=== PATIENT | female | born 1950 | race Caucasian/White ===

== ENCOUNTER 2021-08-27 04:29 | Inpatient (IN) | payer MEDICARE ==
--- NOTE | 2021-08-27 04:49 | ED ---
Chest Pain HPI - General Stated Complaint: Palpitations Time Seen by Provider: 08/27/21 04:36 Source: RN notes reviewed, old records reviewed Limitations: no limitations - History of Present Illness Initial Comments: This is a 71-year-old female to the emergency department today today. She presents today for evaluation of shortness of breath severe. Patient has history of SVT. Coming in with weakness and chest pain. No recent travel history sick contacts. No other complaints. Patient does feel weak and significantly short of breath especially with exertion or movement. MD Complaint: chest pain, other (Shortness of breath) -: hour(s) Onset: during exertion Pain Location: substernal, left chest Pain Radiation: LUE Severity: moderate Severity scale (1-10): 7 Quality: tightness, heaviness Consistency: constant Improves With: nothing Worsens With: exertion Anginal Symptoms: dyspnea, sense of impending doom Other Symptoms: palpitations Treatments Prior to Arrival: none - Related Data Allergies Allergy/AdvReac Type Severity Reaction Status Date / Time Penicillins Allergy Anaphylaxis Verified 08/27/21 07:07 Review of Systems ROS Statement: Those systems with pertinent positive or pertinent negative responses have been documented in the HPI. ROS Other: All systems not noted in ROS Statement are negative. EKG Findings - EKG Comments: EKG Findings:: EKG shows A. fib with RVR 160 QRS 87 QTC 362 General Exam General appearance: alert, in no apparent distress, anxious Head exam: Present: atraumatic, normocephalic, normal inspection Eye exam: Present: normal appearance, PERRL, EOMI. Absent: scleral icterus, conjunctival injection, periorbital swelling ENT exam: Present: normal exam, mucous membranes moist Neck exam: Present: normal inspection. Absent: tenderness, meningismus, lymphadenopathy Respiratory exam: Present: normal lung sounds bilaterally. Absent: respiratory distress, wheezes, rales, rhonchi, stridor Cardiovascular Exam: Present: tachycardia, irregular rhythm, normal heart sounds. Absent: systolic murmur, diastolic murmur, rubs, gallop, clicks GI/Abdominal exam: Present: soft, normal bowel sounds. Absent: distended, tenderness, guarding, rebound, rigid Extremities exam: Present: normal inspection, full ROM, normal capillary refill. Absent: tenderness, pedal edema, joint swelling, calf tenderness Back exam: Present: normal inspection Neurological exam: Present: alert, oriented X3, CN II-XII intact Psychiatric exam: Present: normal affect, normal mood Skin exam: Present: warm, dry, intact, normal color. Absent: rash Course Vital Signs 08/27/21 08/27/21 04:49 06:52 Temperature 98.1 F Pulse Rate 152 H 98 Respiratory 18 18 Rate Blood Pressure 163/108 180/76 O2 Sat by Pulse 97 99 Oximetry - Reevaluation(s) Reevaluation #1: 08/27/21 07:33 Medical record is reviewed Reevaluation #2: 08/27/21 07:33 patient has significant improvent with rate control Reevaluation #3: 08/27/21 07:33 patient informed of results and questions answered - Consultations Consultation #1: spoke with EM who agrees to admit the patient Chest Pain MDM - MDM 71 female to the ED complains severe shortness of breath or chest pain. Patient found to be in significant A. fib with RVR SVT. History of SVT no prior history of nature fibrillation. Patient will be admitted for cardiology evaluation Critical Care Time Critical Care Time: Yes Total Critical Care Time: 31 Disposition Clinical Impression: SVT (supraventricular tachycardia), Atrial fibrillation with RVR, New onset atrial fibrillation, Chest pain Disposition: ADMITTED IP TO THIS HOSP Condition: Fair Is patient prescribed a controlled substance at d/c from ED?: No Referrals: Gaston Boss MD [Primary Care Provider] - 1-2 days
[2021-08-27] MEDS ORDERED: SODIUM CHLORIDE 0.9% 1,000 ML IV STA ×2 (04:50→06:35)
[2021-08-27 05:00] LABS: Basophils # (A) 0.1 k/uL (0-0.2); Basophils % (A) 1 %; Eosinophils # (A) 0.1 k/uL (0-0.7); Eosinophils % (A) 1 %; HCT 39.5 % (34.0-46.0); Hypochromasia Slight; Lymphocytes # (A) 1.7 k/uL (1.0-4.8); Lymphocytes % (A) 14 %; MCH 29.9 pg (25.0-35.0); MCHC 30.5 g/dL (31.0-37.0); MCV 98.1 fL (80.0-100.0); Mean Platelet Volume 9.5; Monocytes # (A) 0.5 k/uL (0-1.0); Monocytes % (A) 4 %; Neutrophils % (A) 81 %; Platelet Count 274 k/uL (150-450); RBC 4.03 m/uL (3.80-5.40); WBC 12.4 k/uL (3.8-10.6)
[2021-08-27 05:10] LABS: Albumin 4.1 g/dL (3.5-5.0); Calcium 8.9 mg/dL (8.4-10.2); INR 0.9 (<1.2); Partial Thromboplastin Time 22.2 sec (22.0-30.0); Phosphorus 4.9 mg/dL (2.5-4.5); Potassium 4.8 mmol/L (3.5-5.1); Prothrombin Time 10.4 sec (9.0-12.0); Total Bilirubin 0.5 mg/dL (0.2-1.3); Total Protein 7.5 g/dL (6.3-8.2)
[2021-08-27] MEDS ORDERED: DILTIAZEM 5 MG/ML 5 ML VIAL IVP STA (06:35)
[2021-08-27] MEDS ORDERED: INSULIN REGULAR 100 UNIT/ML VIAL (IV) IV ONE (06:35)
[2021-08-27] MEDS ORDERED: SODIUM CHLORIDE 0.9% 500 ML 500 ML IV STA (06:35)
[2021-08-27] MEDS ORDERED: DILTIAZEM DRIP BOLUS FROM BAG 1 MG SOLN IV ONE ×2 (06:35→06:43)
[2021-08-27] MEDS: DILTIAZEM 125 MG in SODIUM CHLORIDE 0.9% 100 ML IV SCH (06:59)
--- NOTE | 2021-08-27 07:07 | XR ---
EXAMINATION TYPE: XR chest 1V portable DATE OF EXAM: 08/27/2021 COMPARISON: NONE HISTORY: Chest pain. TECHNIQUE: Single AP portable frontal upright view of the chest is obtained. FINDINGS: Exam suboptimal due to body habitus and portable technique. Lungs are grossly clear. The cardiac silhouette size is upper limits of normal. The osseous structures are intact. IMPRESSION: Suboptimal study without acute pulmonary process identified.
[2021-08-27 07:10] LABS: Appearance,Urine Clear (Clear); Bacteria,Urine Rare /hpf; Bilirubin,Urine Negative (Negative); Blood,Urine Trace (Negative); Color,Urine Light Yellow; Glucose,Urine (UA) 4+ (Negative); Hyaline Casts,Urine 3 /lpf (0-2); Ketones,Urine Negative (Negative); Leukocyte Esterase,Urine Negative (Negative); Mucus,Urine Rare /hpf; Nitrite,Urine Negative (Negative); PH, Urine 6.5 (5.0-8.0); Protein,Urine 3+ (Negative); RBC,Urine 1 /hpf (0-5); Specific Gravity,Urine 1.019 (1.001-1.035); Squamous Epithelial Cell,Urine 1 /hpf (0-4); Urobilinogen,Urine <2.0 mg/dL (<2.0); WBC,Urine 5 /hpf (0-5)
[2021-08-27] MEDS ORDERED: LORazepam 2 MG/ML INJ IV PRN (07:29)
[2021-08-27] MEDS ORDERED: MORPHINE SULFATE 4 MG/ML SYRINGE IV PRN (07:29)
[2021-08-27] MEDS ORDERED: NALOXONE 0.4 MG/ML 1 ML VIAL IV PRN (07:29)
[2021-08-27] MEDS ORDERED: ACETAMINOPHEN TAB 325 MG TAB PO PRN (07:29)
[2021-08-27] MEDS ORDERED: ONDANSETRON 4 MG/2 ML VIAL IVP PRN (07:29)
[2021-08-27] MEDS ORDERED: HEPARIN SODIUM 1,000 UN/ML (10ML VL) IV ONE (07:36)
[2021-08-27 09:44] LABS: Glucose,Whole Blood 338 mg/dL (75-99)
[2021-08-27] MEDS: INSULIN ASPART (NovoLOG) 100 UNIT/ML VIAL SQ SCH ×3 (09:45→20:54)
[2021-08-27] MEDS: SODIUM CHLORIDE 0.9% 1,000 ML IV SCH ×3 (09:46→22:33)
[2021-08-27] MEDS: HEPARIN SOD,PORK IN 0.45% NACL 25,000 UNIT in 0.45% NACL 1 250ML.BAG IV SCH (09:55)
[2021-08-27 17:07] LABS: Glucose,Whole Blood 166 mg/dL (75-99)
[2021-08-27] MEDS ORDERED: ASPIRIN 81 MG PO PRN (18:09)
--- NOTE | 2021-08-27 18:55 | P.HPIM ---
History of Present Illness H&P Date: 08/27/21 Chief Complaint: Palpitations 71-year-old female with history of hypertension, diabetes mellitus, COPD/asthma presents to the emergency department for evaluation of shortness of breath severe. Patient has history of SVT. Coming in with weakness and chest pain. No recent travel history sick contacts. No other complaints. Patient does feel weak and significantly short of breath especially with exertion or movement. Workup completed in ED including an EKG reveals atrial fibrillation with RVR; patient is placed on IV Cardizem and heparin and is admitted for further e valuation Review of Systems REVIEW OF SYSTEMS: CONSTITUTIONAL: No fever, no malaise, no fatigue. HEENT: No recent visual problems or hearing problems. Denied any sore throat. CARDIOVASCULAR: No chest pain, orthopnea, PND, no palpitations, no syncope. PULMONARY: No shortness of breath, no cough, no hemoptysis. GASTROINTESTINAL: No diarrhea, no nausea, no vomiting, no abdominal pain. NEUROLOGICAL: No headaches, no weakness, no numbness. HEMATOLOGICAL: Denies any bleeding or petechiae. GENITOURINARY: Denies any burning micturition, frequency, or urgency. MUSCULOSKELETAL/RHEUMATOLOGICAL: Denies any joint pain, swelling, or any muscle pain. ENDOCRINE: Denies any polyuria or polydipsia. The rest of the 14-point review of systems is negative. Medications and Allergies Home Medications Medication Instructions Recorded Confirmed Type Albuterol Nebulized [Ventolin 2.5 mg INHALATION RT-QID 08/27/21 08/27/21 History Nebulized] Aspirin EC [Ecotrin Low Dose] 324 mg PO DAILY PRN 08/27/21 08/27/21 History Azithromycin [Zithromax Z-pack (6 See Taper PO DAILY 08/27/21 08/27/21 History tabs)] Furosemide [Lasix] 20 mg PO DAILY 08/27/21 08/27/21 History Insulin NPH Hum/Reg Insulin Hm 35 unit SQ DAILY 08/27/21 08/27/21 History [NovoLIN 70-30 100 UNIT/ML VIAL] Potassium Chloride ER [K-Dur 10] 10 meq PO DAILY 08/27/21 08/27/21 History Verapamil HCl [Verapamil ER] 180 mg PO BID 08/27/21 08/27/21 History metFORMIN HCL 500 mg PO W/BRKFST 08/27/21 08/27/21 History metFORMIN HCL [Glucophage] 1,000 mg PO W/SUPPER 08/27/21 08/27/21 History methylPREDNISolone [Medrol Dose See Taper PO DAILY 08/27/21 08/27/21 History Pack] traMADol HCL 50 mg PO BID 08/27/21 08/27/21 History Allergies Allergy/AdvReac Type Severity Reaction Status Date / Time Penicillins Allergy Rash/Hives Verified 08/27/21 11:37 ALL OVER Physical Exam Vitals: Vital Signs Temp Pulse Resp BP Pulse Ox 08/27/21 06:52 98 18 180/76 99 08/27/21 04:49 98.1 F 152 H 18 163/108 97 Intake and Output 08/26/21 08/27/21 08/27/21 22:59 06:59 14:59 Other: Weight 125.645 kg - Constitutional General appearance: Present: average body habitus, cooperative, no acute distress - EENT Eyes: Present: anicteric sclerae, EOMI, PERRLA, normal appearance ENT: Present: hearing grossly normal, normal oropharynx Ears: bilateral: normal - Neck Neck: Present: normal ROM. Absent: lymphadenopathy, rigidity, thyromegaly Carotids: negative: bruit present Thyroid: bilateral: normal size, negative: enlarged, nodule - Respiratory Respiratory: bilateral: CTA, negative: rales, rhonchi, wheezing - Cardiovascular Rhythm: regular Heart sounds: normal: S1, S2 Abnormal Heart Sounds: Absent: systolic murmur, diastolic murmur - Gastrointestinal General gastrointestinal: Present: normal bowel sounds, soft. Absent: distended, organomegaly, tenderness - Genitourinary Genitourinary Comment(s): deferred - Integumentary Integumentary: Present: normal turgor. Absent: jaundiced, rash, ulcer - Neurologic Neurologic: Present: CNII-XII intact. Absent: focal deficits - Musculoskeletal Musculoskeletal: Present: gait normal, strength equal bilaterally - Psychiatric Psychiatric: Present: A&O x's 3, appropriate affect, intact judgment & insight Results CBC & Chem 7: 08/27/21 04:45 08/27/21 04:45 Labs: Abnormal Lab Results - Last 24 Hours (Table) 08/27/21 08/27/21 08/27/21 Range/Units 04:45 04:45 05:08 WBC 12.4 H (3.8-10.6) k/uL MCHC 30.5 L (31.0-37.0) g/dL Neutrophils # 10.0 H (1.3-7.7) k/uL Sodium 135 L (137-145) mmol/L BUN 32 H (7-17) mg/dL Creatinine 1.30 H (0.52-1.04) mg/dL Glucose 522 H* (74-99) mg/dL POC Glucose (mg/dL) (75-99) mg/dL Plasma Lactic Acid Tunde 2.1 H* (0.7-2.0) mmol/L Phosphorus 4.9 H (2.5-4.5) mg/dL Urine Protein (Negative) Urine Glucose (UA) (Negative) Urine Blood (Negative) Urine Bacteria (None) /hpf Hyaline Casts (0-2) /lpf Urine Mucus (None) /hpf 08/27/21 08/27/21 Range/Units 06:45 09:42 WBC (3.8-10.6) k/uL MCHC (31.0-37.0) g/dL Neutrophils # (1.3-7.7) k/uL Sodium (137-145) mmol/L BUN (7-17) mg/dL Creatinine (0.52-1.04) mg/dL Glucose (74-99) mg/dL POC Glucose (mg/dL) 338 H (75-99) mg/dL Plasma Lactic Acid Tunde (0.7-2.0) mmol/L Phosphorus (2.5-4.5) mg/dL Urine Protein 3+ H (Negative) Urine Glucose (UA) 4+ H (Negative) Urine Blood Trace H (Negative) Urine Bacteria Rare H (None) /hpf Hyaline Casts 3 H (0-2) /lpf Urine Mucus Rare H (None) /hpf Assessment and Plan Assessment: 1. New onset atrial fibrillation with RVR - Patient has been placed on IV heparin infusion and Cardizem to titrate keeping heart rate less than 110 - Patient takes verapamil at home which has been placed on hold - We will monitor EKG and trend troponin; recommend 2-D echo - Cardiology is consulted for further recommendations 2. Chest pain; likely related to elevated heart rate; we will monitor EKG and trend troponin; further recommendations pending results 3. Hypertension; currently controlled on IV Cardizem infusion 4. Diabetes mellitus; we will continue with home dose of insulin 7030 along with metformin; monitor Accu-Cheks every before meals and at bedtime with insul in sliding scale 5. DVT prophylaxis; SCDs/heparin CODE STATUS; full code
[2021-08-27] MEDS: ALBUTEROL NEBULIZED 2.5 MG/3 ML INHALATION SCH (20:14)
[2021-08-27] MEDS: traMADol 50 MG TAB PO SCH (20:54)
[2021-08-27 20:58] LABS: Glucose,Whole Blood 254 mg/dL (75-99)
[2021-08-27] MEDS ORDERED: VERAPAMIL HCL 180 MG PO SCH (21:00)
[2021-08-28] MEDS: DILTIAZEM 125 MG in SODIUM CHLORIDE 0.9% 100 ML IV SCH (00:02)
[2021-08-28] MEDS: HEPARIN SOD,PORK IN 0.45% NACL 25,000 UNIT in 0.45% NACL 1 250ML.BAG IV SCH (02:29)
[2021-08-28 03:46] LABS: Basophils % (A) 0 %; Eosinophils # (A) 0.1 k/uL (0-0.7); Eosinophils % (A) 2 %; HCT 35.5 % (34.0-46.0); HGB 11.1 gm/dL (11.4-16.0); Hypochromasia Slight; Lymphocytes # (A) 2.3 k/uL (1.0-4.8); Lymphocytes % (A) 28 %; MCH 30.2 pg (25.0-35.0); MCHC 31.3 g/dL (31.0-37.0); MCV 96.6 fL (80.0-100.0); Mean Platelet Volume 9.2; Monocytes # (A) 0.4 k/uL (0-1.0); Monocytes % (A) 5 %; Neutrophils # (A) 5.2 k/uL (1.3-7.7); Neutrophils % (A) 64 %; Platelet Count 228 k/uL (150-450); RBC 3.68 m/uL (3.80-5.40); RDW 14.6 % (11.5-15.5); WBC 8.2 k/uL (3.8-10.6)
[2021-08-28 04:05] LABS: Albumin 3.3 g/dL (3.5-5.0); Calcium 8.4 mg/dL (8.4-10.2); Magnesium 1.8 mg/dL (1.6-2.3); Phosphorus 4.3 mg/dL (2.5-4.5); Potassium 3.9 mmol/L (3.5-5.1); Total Bilirubin 0.5 mg/dL (0.2-1.3); Total Protein 6.1 g/dL (6.3-8.2)
[2021-08-28] MEDS: INSULIN ASPART (NovoLOG) 100 UNIT/ML VIAL SQ SCH ×2 (06:21→11:48)
[2021-08-28] MEDS: SODIUM CHLORIDE 0.9% 1,000 ML IV SCH ×2 (06:22→07:55)
[2021-08-28 06:31] LABS: Glucose,Whole Blood 196 mg/dL (75-99)
[2021-08-28] MEDS ORDERED: INSULN ASP PRT/INSULIN ASPART 100 UNIT/ML 10 ML VIAL SQ SCH (07:30)
[2021-08-28] MEDS ORDERED: metFORMIN 500 MG TAB PO SCH ×2 (07:30→17:30)
[2021-08-28 08:51] VITALS: RESP 18; TEMP 97.9
[2021-08-28] MEDS: traMADol 50 MG TAB PO SCH (08:53)
[2021-08-28] MEDS ORDERED: FUROSEMIDE 20 MG TAB PO SCH (09:00)
[2021-08-28] MEDS ORDERED: METOPROLOL TARTRATE 50 MG TAB PO SCH (09:00)
[2021-08-28] MEDS ORDERED: METOPROLOL TARTRATE 25 MG TAB PO SCH (09:00)
[2021-08-28] MEDS ORDERED: POTASSIUM CHLORIDE ER 10 MEQ TAB.ER.PRT PO SCH (09:00)
[2021-08-28] MEDS ORDERED: APIXABAN 5 MG TAB PO SCH (09:00)
--- NOTE | 2021-08-28 09:03 | P.CRDCN ---
History of Present Illness History of present illness: HISTORY OF PRESENT ILLNESS: This is a 71 year old female with a past medical history significant for hypertension, diabetes, SVT, and chronic lower extremity edema. 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 We have been asked to see the patient in consultation for afib with RVR. Patient examined at the bedside. Patient states she woke up two nights ago and was very short of breath. She states she took her pulse ox at home and noticed her heart rate was low (in the 40s). She denied any chest pain or pressure. She denied any dizziness or lightheadedness. She states that she called EMS and was brought to the hospital for further evaluation. EKG completed in the emergency room revealed atrial fibrillation with RVR. The patient denies a history of atrial flutter ablation. The patient was started on IV Cardizem and IV heparin. She subsequently converted to sinus mechanism. The patient is maintaining satisfactory this morning with a heart rate in the 90s. * EKG reveals A. fib with RVR * Chest xray suboptimal study without acute pulmonary process identified * Laboratory data: WBC 8.2. Hemoglobin 11.1. Platelet count 228. Sodium 135. Potassium 3.9. BUN 30. Creatinine 1.22. magnesium 1.8. * Current home cardiac medications include verapamil 180 mg twice a day, Lasix 20 mg daily, aspirin 324 mg daily PRN REVIEW OF SYSTEMS: At the time of my exam: CONSTITUTIONAL: Denies fever or chills. HEENT: Denies blurred vision, vision changes, or eye pain. Denies hemoptysis CARDIOVASCULAR: Denies chest pain. Denies orthopnea. Denies PND. Denies palpitations RESPIRATORY: Denies shortness of breath. GASTROINTESTINAL: Denies abdominal pain. Denies nausea or vomiting. HEMATOLOGIC: Denies bleeding disorders. GENITOURINARY: Denies any blood in urine. SKIN: Denies pruitis. Denies rash. PHYSICAL EXAM: VITAL SIGNS: Reviewed. GENERAL: Well-developed in no acute distress. HEENT: Head is normocephalic. Pupils are equal, round. Sclerae anicteric. Mucous membranes of the mouth are moist. Neck supple. No JVD or thyromegaly LUNGS: Respirations even and unlabored. Lungs essentially clear to auscultation bilaterally. HEART: Regular rate and rhythm. S1 and S2 heard. ABDOMEN: Soft. Nondistended. Nontender. EXTREMITIES: Normal range of motion. No clubbing or cyanosis. Peripheral pulses intact. 1-2+ bilateral lower extremity edema NEUROLOGIC: Awake and alert. Oriented x 3. ASSESSMENT: Shortness of breath New onset atrial fibrillation with RVR, paroxysmal, currently maintaining sinus mechanism Hypertension History of SVT Diabetes Chronic lower extremity edema PLAN: Discontinue IV Cardizem Begin metoprolol 50mg BID Discontinue IV heparin. Begin Eliquis 5mg BID. Obtain 2D echo to assess cardiac structure and function Anticipate discharge home this afternoon if patient remains stable Nurse practitioner note has been reviewed by physician. Signing provider agrees with the documented findings, assessment, and plan of care. Past Medical History Past Medical History: Diabetes Mellitus Additional Past Medical History / Comment(s): "fast heart rate", sciatic nerve pain, History of Any Multi-Drug Resistant Organisms: None Reported Smoking Status: Former smoker Medications and Allergies Home Medications Medication Instructions Recorded Confirmed Type Albuterol Nebulized [Ventolin 2.5 mg INHALATION RT-QID 08/27/21 08/27/21 History Nebulized] Aspirin EC [Ecotrin Low Dose] 324 mg PO DAILY PRN 08/27/21 08/27/21 History Azithromycin [Zithromax Z-pack (6 See Taper PO DAILY 08/27/21 08/27/21 History tabs)] Furosemide [Lasix] 20 mg PO DAILY 08/27/21 08/27/21 History Insulin NPH Hum/Reg Insulin Hm 35 unit SQ DAILY 08/27/21 08/27/21 History [NovoLIN 70-30 100 UNIT/ML VIAL] Potassium Chloride ER [K-Dur 10] 10 meq PO DAILY 08/27/21 08/27/21 History Verapamil HCl [Verapamil ER] 180 mg PO BID 08/27/21 08/27/21 History metFORMIN HCL 500 mg PO W/BRKFST 08/27/21 08/27/21 History metFORMIN HCL [Glucophage] 1,000 mg PO W/SUPPER 08/27/21 08/27/21 History methylPREDNISolone [Medrol Dose See Taper PO DAILY 08/27/21 08/27/21 History Pack] traMADol HCL 50 mg PO BID 08/27/21 08/27/21 History Allergies Allergy/AdvReac Type Severity Reaction Status Date / Time Penicillins Allergy Rash/Hives Verified 08/27/21 11:37 ALL OVER Physical Exam Vitals: Vital Signs Temp Pulse Pulse Resp BP BP Pulse Ox 08/28/21 07:42 17 08/28/21 02:40 97.3 F L 86 17 165/86 96 08/27/21 23:55 87 17 08/27/21 23:08 98.1 F 91 17 166/76 96 08/27/21 20:26 70 08/27/21 20:16 68 08/27/21 19:43 97.9 F 87 18 176/68 98 08/27/21 15:00 84 18 196/87 96 08/27/21 12:00 88 18 168/70 98 Intake and Output 08/27/21 08/28/21 08/28/21 22:59 06:59 14:59 Intake Total 165.500 112.755 Balance 165.500 112.755 Intake: Intake, IV Titration 165.500 112.755 Amount Diltiazem 125 mg In 55.333 0 Sodium Chloride 0.9% 100 ml @ 5 MG/HR 5 mls/hr IV .Q24H [facility] Rx#:[id number] Heparin Sod,Pork in 0.45% 110.167 112.755 NaCl 25,000 unit In 0.45 % NaCl 1 250ml.bag @ 7. 959 UNITS/KG/HR 10 mls/hr IV .Q24H [facility] Rx#: [id number] Other: # Voids 1 Results 08/28/21 02:58 08/28/21 02:58 Cardiac Enzymes 08/27/21 08/27/21 08/28/21 Range/Units 09:19 12:53 02:58 AST 31 (14-36) U/L Troponin I 0.017 0.028 (0.000-0.034) ng/mL Coagulation 08/27/21 08/28/21 Range/Units 18:44 02:58 APTT 28.1 36.0 H (22.0-30.0) sec CBC 08/28/21 Range/Units 02:58 WBC 8.2 (3.8-10.6) k/uL RBC 3.68 L (3.80-5.40) m/uL Hgb 11.1 L (11.4-16.0) gm/dL Hct 35.5 (34.0-46.0) % Plt Count 228 (150-450) k/uL Comprehensive Metabolic Panel 08/28/21 Range/Units 02:58 Sodium 135 L (137-145) mmol/L Potassium 3.9 (3.5-5.1) mmol/L Chloride 110 H (98-107) mmol/L Carbon Dioxide 22 (22-30) mmol/L BUN 30 H (7-17) mg/dL Creatinine 1.22 H (0.52-1.04) mg/dL Glucose 173 H (74-99) mg/dL Calcium 8.4 (8.4-10.2) mg/dL AST 31 (14-36) U/L ALT 21 (4-34) U/L Alkaline Phosphatase 66 (38-126) U/L Total Protein 6.1 L (6.3-8.2) g/dL Albumin 3.3 L (3.5-5.0) g/dL Current Medications Generic Name Dose Route Start Last Admin Trade Name Freq PRN Reason Stop Dose Admin Acetaminophen 650 mg 08/27/21 07:29 Acetaminophen Tab 325 Mg Tab PO Q6HR PRN Mild Pain or Fever > 100.5 Albuterol Sulfate 2.5 mg 08/27/21 20:00 08/27/21 20:14 Albuterol Nebulized 2.5 Mg/3 Ml INHALATION 2.5 mg RT-QID [facility] Administration Aspirin 324 mg 08/27/21 18:09 Aspirin 81 Mg PO DAILY PRN Pain Furosemide 20 mg 08/28/21 09:00 Furosemide 20 Mg Tab PO DAILY [facility] Diltiazem HCl 125 mg/ Sodium 125 mls @ 5 mls/hr 08/27/21 06:45 08/28/21 00:02 Chloride IV 5 mg/hr .Q24H [facility] 5 mls/hr Administration 5 MG/HR Sodium Chloride 1,000 mls @ 130 mls/hr 08/27/21 07:30 08/28/21 07:55 Saline 0.9% IV Not Given .Q7H42M [facility] Heparin Sodium/Sodium Chloride 250 mls @ 10 mls/hr 08/27/21 07:45 08/28/21 05:10 25,000 unit/ Sodium Chloride IV 12.9 units/kg/hr .Q24H [facility] 16.208 mls/hr Titration Protocol 7.959 UNITS/KG/HR Insulin Aspart 35 unit 08/28/21 07:30 08/28/21 06:43 Insuln Asp Prt/Insulin Aspart 100 Unit/Ml 10 Ml Vial SQ 35 unit AC-BRKFST [facility] Administration Insulin Aspart 0 unit 08/27/21 21:00 08/28/21 06:21 Insulin Aspart (Novolog) 100 Unit/Ml Vial SQ 3 unit ACHS [facility] Administration Protocol Lorazepam 0.5 mg 08/27/21 07:29 Lorazepam 2 Mg/Ml Inj IV Q6HR PRN Anxiety Metformin HCl 1,000 mg 08/28/21 17:30 Metformin 500 Mg Tab PO W/SUPPER [facility] Metformin HCl 500 mg 08/28/21 07:30 08/28/21 06:21 Metformin 500 Mg Tab PO 500 mg W/BRKFST [facility] Administration Morphine Sulfate 4 mg 08/27/21 07:29 Morphine Sulfate 4 Mg/Ml Syringe IV Q4HR PRN Severe Pain Naloxone HCl 0.2 mg 08/27/21 07:29 Naloxone 0.4 Mg/Ml 1 Ml Vial IV Q2M PRN Opioid Reversal Non-Formulary Medication 180 mg 08/27/21 21:00 Verapamil Hcl [Verapamil Er] PO BID [facility] Ondansetron HCl 4 mg 08/27/21 07:29 Ondansetron 4 Mg/2 Ml Vial IVP Q8HR PRN Nausea And Vomiting Potassium Chloride 10 meq 08/28/21 09:00 Potassium Chloride Er 10 Meq Tab.Er.Prt PO DAILY [facility] Tramadol HCl 50 mg 08/27/21 21:00 08/27/21 20:54 Tramadol 50 Mg Tab PO 50 mg BID [facility] Administration Intake and Output 08/27/21 08/28/21 08/28/21 22:59 06:59 14:59 Intake Total 165.500 112.755 Balance 165.500 112.755 Intake: Intake, IV Titration 165.500 112.755 Amount Diltiazem 125 mg In 55.333 0 Sodium Chloride 0.9% 100 ml @ 5 MG/HR 5 mls/hr IV .Q24H [facility] Rx#:[id number] Heparin Sod,Pork in 0.45% 110.167 112.755 NaCl 25,000 unit In 0.45 % NaCl 1 250ml.bag @ 7. 959 UNITS/KG/HR 10 mls/hr IV .Q24H [facility] Rx#: [id number] Other: # Voids 1 08/28/21 02:58 08/28/21 02:58
[2021-08-28] MEDS: ALBUTEROL NEBULIZED 2.5 MG/3 ML INHALATION SCH ×2 (09:06→12:02)
[2021-08-28 11:34] LABS: Glucose,Whole Blood 81 mg/dL (75-99)
[2021-08-28 11:46] VITALS: BP 172/101; PULSE 75
[2021-08-28 12:35] LABS: Glucose,Whole Blood 131 mg/dL (75-99)
[2021-08-28] MEDS ORDERED: MONTELUKAST 10 MG TAB PO SCH (21:00)
--- NOTE | 2021-08-29 13:00 | ECHOF ---
Referral Reason:LV function MEASUREMENTS -------- HEIGHT: 157.5 cm WEIGHT: 125.6 kg BP: 159/77 RVIDd: 2.8 cm (< 3.3) IVSd: 1.4 cm (0.6 - 1.1) LVIDd: 5.5 cm (3.9 - 5.3) LVPWd: 1.4 cm (0.6 - 1.1) IVSs: 2.0 cm LVIDs: 3.8 cm LVPWs: 1.8 cm LA Diam: 3.5 cm (2.7 - 3.8) Ao Diam: 2.9 cm (2.0 - 3.7) AV Cusp: 1.6 cm (1.5 - 2.6) MV EXCURSION: 17.961 mm (> 18.000) MV EF SLOPE: 38 mm/s (70 - 150) EPSS: 1.8 cm MV E Gennaro: 0.51 m/s MV DecT: 315 ms MV A Gennaro: 0.77 m/s MV E/A Ratio: 0.67 RAP: 5.00 mmHg RVSP: 34.66 mmHg FINDINGS -------- Sinus rhythm. This was a technically difficult study with suboptimal views. The left ventricular size is normal. There is moderate concentric left ventricular hypertrophy. O verall left ventricular systolic function is low-normal with, an EF between 50 - 55 %. The right ventricle is normal in size. The left atrium is normal in size. The right atrium is normal in size. 3 ml of Lumason was utilized for enhancement of images. The aortic valve was not well visualized. Mild mitral regurgitation is present. Mild tricuspid regurgitation present. There is mild pulmonary hypertension. The right ventricular systolic pressure, as measured by Doppler, is 34.66mmHg. The pulmonic valve was not well visualized. The aortic root size is normal. IVC Not well visulized. There is no pericardial effusion. CONCLUSIONS -------- 1. The left ventricular size is normal. 2. There is moderate concentric left ventricular hypertrophy. 3. Overall left ventricular systolic function is low-normal with, an EF between 50 - 55 %. 4. 3 ml of Lumason was utilized for enhancement of images. 5. Mild mitral regurgitation is present. 6. Mild tricuspid regurgitation present. 7. There is mild pulmonary hypertension. 8. The right ventricular systolic pressure, as measured by Doppler, is 34.66mmHg. 9. There is no pericardial effusion. BUSINESS OPERATIONS ANALYST: Hanna Cadena RDCS
--- NOTE | 2021-08-29 15:56 | P.DS ---
Providers Date of admission: 08/27/21 07:29 Expected date of discharge: 08/28/21 Attending physician: Gaston Boss MD Consults: 08/27/21 07:31 Consult Physician Routine Consulting Provider: Darren Kennedy Consult Reason/Comments: afibRVR Do you want consulting provider notified?: Yes Primary care physician: Gaston Boss MD Hospital Course: Final Diagnoses: New onset paroxysmal atrial fibrillation with RVR, status post Cardizem drip, currently sinus rhythm in a patient with history of SVT Chest pain, suspect related to the above, cardiology following Sciatica nerve pain, chronic Diabetes mellitus II, hemoglobin A1c 8.7, further education outpatient in clinic Chronic renal failure, stage III Hypertension Chronic bronchitis Prior nicotine dependence Gait dysfunction, chronic left leg neuropathy X months, possibly diabetic neuropathy ,further workup outpatient in clinic Morbid obesity, BMI 54.1 Hospital course: 71-year-old female with history of hypertension, diabetes mellitus, COPD/asthma presents to the emergency department for evaluation of shortness of breath severe. Patient has history of SVT. Coming in with weakness and chest pain. No recent travel history sick contacts. No other complaints. Patient does feel weak and significantly short of breath especially with exertion or movement. Workup completed in ED including an EKG reveals atrial fibrillation with RVR; patient is placed on IV Cardizem and heparin and is admitted for further evaluation. Evaluated by cardiology, converted from IV heparin to eliquis.. Echocardiogram reporting low normal LV function, EF 50-55%, mild pulmonary hypertension, mild mitral and tricuspid regurgitation. Patient declining PT/ OT/neurology workup at this time regarding chronic left leg weakness, neuropathy; requesting outpatient workup and is eager for discharge. Patient will be discharged home today in a stable condition with guarded prognosis pending final DC recommendations/antiarrhythmics per cardiology. Case management checking on Eliquis RX coverage. The impression and plan of care has been dictated as directed. : I performed a history and examination of this patient, discussed the same with the dictator. I agree with the dictator's note ,documented as a scribe. Any additional findings or plans will be noted. Patient Condition at Discharge: Stable Plan - Discharge Summary Discharge Rx Participant: No New Discharge Prescriptions: New Apixaban [Eliquis] 5 mg PO BID #60 tab Montelukast [Singulair] 10 mg PO HS #30 tab Continue traMADol HCL 50 mg PO BID Albuterol Nebulized [Ventolin Nebulized] 2.5 mg INHALATION RT-QID Potassium Chloride ER [K-Dur 10] 10 meq PO DAILY Insulin NPH Hum/Reg Insulin Hm [NovoLIN 70-30 100 UNIT/ML VIAL] 35 unit SQ DAILY metFORMIN HCL [Glucophage] 1,000 mg PO W/SUPPER metFORMIN HCL 500 mg PO W/BRKFST Furosemide [Lasix] 20 mg PO DAILY Aspirin EC [Ecotrin Low Dose] 324 mg PO DAILY PRN PRN Reason: Pain Verapamil HCl [Verapamil ER] 180 mg PO BID Discontinued methylPREDNISolone [Medrol Dose Pack] See Taper PO DAILY Azithromycin [Zithromax Z-pack (6 tabs)] See Taper PO DAILY Discharge Medication List Albuterol Nebulized [Ventolin Nebulized] 2.5 mg INHALATION RT-QID 08/27/21 [History] Aspirin EC [Ecotrin Low Dose] 324 mg PO DAILY PRN 08/27/21 [History] Furosemide [Lasix] 20 mg PO DAILY 08/27/21 [History] Insulin NPH Hum/Reg Insulin Hm [NovoLIN 70-30 100 UNIT/ML VIAL] 35 unit SQ DAILY 08/27/21 [History] Potassium Chloride ER [K-Dur 10] 10 meq PO DAILY 08/27/21 [History] Verapamil HCl [Verapamil ER] 180 mg PO BID 08/27/21 [History] metFORMIN HCL 500 mg PO W/BRKFST 08/27/21 [History] metFORMIN HCL [Glucophage] 1,000 mg PO W/SUPPER 08/27/21 [History] traMADol HCL 50 mg PO BID 08/27/21 [History] Apixaban [Eliquis] 5 mg PO BID #60 tab 08/28/21 [Rx] Montelukast [Singulair] 10 mg PO HS #30 tab 08/28/21 [Rx] Follow up Appointment(s)/Referral(s): Darren Kennedy MD [STAFF PHYSICIAN] - 1 Week (The office will call you with an appointment) Gaston Boss MD [Primary Care Provider] - 08/29/21 2:00 pm Ambulatory/Diagnostic Orders: Complete Blood Count w/diff [LAB.AMB] Time Frame: 3 Days, Location: None Selected Patient Instructions/Handouts: A-fib (Atrial Fibrillation) (DC) Activity/Diet/Wound Care/Special Instructions: Hemoglobin A1c results to be faxed to PCP.... [facility] Discharge Disposition: HOME WITH HOME HEALTH SERVICES
== END 2021-08-28 14:58 | disposition home health service (06) | DRG 309 ==
LOC: EC 04:29 → 3SCARD 07:29
PROVIDERS: ADMIT Family Medicine; ATTEND Family Medicine
DX: I48.0 Paroxysmal atrial fibrillation (principal); Z68.43 Body mass index [BMI] 50.0-59.9, adult; E11.22 Type 2 diabetes mellitus with diabetic chronic kidney disease; E11.40 Type 2 diabetes mellitus with diabetic neuropathy, unspecified; Z79.4 Long term (current) use of insulin; Z79.84 Long term (current) use of oral hypoglycemic drugs; E66.01 Morbid (severe) obesity due to excess calories; I34.0 Nonrheumatic mitral (valve) insufficiency; R26.9 Unspecified abnormalities of gait and mobility; I12.9 Hypertensive chronic kidney disease with stage 1 through stage 4 chronic kidney disease, or unspecified chronic kidney disease; I27.20 Pulmonary hypertension, unspecified; I47.1 Supraventricular tachycardia; J44.9 Chronic obstructive pulmonary disease, unspecified; M54.30 Sciatica, unspecified side; N18.30 Chronic kidney disease, stage 3 unspecified; Z79.82 Long term (current) use of aspirin; Z79.899 Other long term (current) drug therapy; Z87.891 Personal history of nicotine dependence; Z88.0 Allergy status to penicillin
CPT/HCPCS: 36415; 71045; 80053; 81001; 83036; 83605; 83735; 83880; 84100; 84443; 84484; 85025; 85610; 85730; 93005; 93306; 94640; 94760; 96374; 96375; 99291

== ENCOUNTER → 2021-12-22 | Outpatient (CLI) | payer MEDICARE ==
[2021-12-22 18:30] LABS: HCT 37.9 % (37.2-46.3); HGB 11.4 g/dL (12.0-15.0); MCH 26.3 pg (27.0-32.0); MCHC 30.1 g/dL (32.0-37.0); MCV 87.5 fL (80.0-97.0); Mean Platelet Volume 11.7 fL (9.5-12.2); NRBC Per 100 WBC 0 /100 WBCS (0.0-0.0); Platelet Count 233 X 10*3/uL (140-440); RBC 4.33 X 10*6/uL (4.10-5.20); RDW 15.3 % (11.5-14.5); WBC 9.89 X 10*3/uL (4.50-10.00)
[2021-12-22 18:47] LABS: ALT <5 U/L (8-44); AST 14 U/L (13-35); African American GFR (CKD) 44.3 (60.0-200.0); Albumin 3.8 g/dL (3.8-4.9); Albumin/Globulin Ratio 1.12 (1.60-3.17); Alkaline Phosphatase 73 U/L (41-126); BUN/Creat Ratio 15.29 Ratio (12.00-20.00); Blood Urea Nitrogen 21.4 mg/dL (9.0-27.0); Calcium 8.9 mg/dL (8.7-10.3); Carbon Dioxide 20.1 mmol/L (20.0-27.5); Chloride 101 mmol/L (96-109); Chol/HDL Ratio 3.93 Ratio; Globulin 3.4 g/dL (1.6-3.3); Glucose 225 mg/dL (70-110); LDL Cholesterol,Calculated 127.5 mg/dL (0.0-131.0); Non-African American GFR(CKD) 38.2 (60.0-200.0); Potassium 5.4 mmol/L (3.5-5.5); Sodium 137 mmol/L (135-145); Total Protein 7.2 g/dL (6.2-8.2)
== END | disposition home or self-care (01) ==
LOC: LABWHC1 14:40
PROVIDERS: ATTEND Internal Medicine Interventional Cardiology
DX: I10 Essential (primary) hypertension (principal); E11.65 Type 2 diabetes mellitus with hyperglycemia; E11.69 Type 2 diabetes mellitus with other specified complication; E78.2 Mixed hyperlipidemia
CPT/HCPCS: 36415; 80053; 80061; 83036; 84443; 85027

== ENCOUNTER → 2022-01-10 | Outpatient (CLI) | payer MEDICARE ==
[2022-01-10 11:25] VITALS: BP 160/75; PULSE 87; RESP 18; TEMP 97.8
--- NOTE | 2022-01-10 13:35 | P.PAINPG ---
PQRS Measure Charge Sheet Comment: HISTORY OF PRESENT ILLNESS: 71 yr old female as a referral from Xena Pettit PA-C presents today w severe and chronic LBP secondary to spondylosis, disc bulges, neuroforaminal stenoses and facet arthropathy for evaluation. Pt states her pain level is currently at 2/10 in intensity, constant, localized in the lumbar spine with radiation of weakness down to the feet. Pain escalates as high as 10 out of 10 in intensity when standing for periods of 10 minutes or more. Patient has been using a wheelchair for ambulation since May 2021. Pain is relieved with medications per to his tramadol, Tylenol), topicals, heat, use of a wheelchair for ambulation, laying supine on her side, repositioning and rest PMH: HTN, aFib, Diabetes Mellitus PSH: Denies SH: Former tobacco user, Rare ETOH use, No illicit drug use. FH: Non contributory All: PCN Meds: See list (Eliquis per documentation from Xena Pettit November 2021) REVIEW OF ORGAN SYSTEMS: CONSTITUTIONAL: No fevers or chills. No recent weight loss. NEUROLOGICAL: + numbness and tingling along the distal ex tremities. No seizure disorders or headaches. MUSCULOSKELETAL: + pain PSYCHIATRIC: Denies current depression or suicidal thoughts. Physical Examinations : Constitutional : Cooperative , not in acute distress . Neurologic : Cranial nerve II to XII intact. No focal neurological deficits. Psychiatric : alert & oriented x 3. Matching mood & appropriate affect. Judgment & insight intact. Musculoskeletal : Cervical Spine Motor strength in the deltoid and biceps: Normal right side. Normal Left side Motor strength biceps and the wrist extensors: Normal right side . Normal left side Motor strength in the triceps muscle: Normal right side. Normal left side Deep tendon reflexes: Normal at the biceps. Normal at Brachioradialis. Normal at triceps Vertebral body tenderness to deep palpation over Cervical facet loading test: positive bilaterally Spurling test: positive bilaterally Neck distraction test: positive bilaterally Gabby sign: positive bilaterally Lumbar spine Motor strength lower extremities ,thigh and legs 5/5 Right side , 5/5 Left side Deep tendon reflexes : Normal Knee Jerk. Normal Ankle Jerk Vertebral body tenderness over L5 Lumbar facet Loading Test: positive Right / positive Left Range of motion of the lumbar spine Flexion 30 degrees, extension 10 degrees Straight Leg Raise test: Left/ Right positive at degree Fabiana test: positive right / positive left. Severe tenderness over the Sacroiliac joint on the Right / Left sides Gaenslen test: positive bilaterally Seated flexion test: positive bilaterally. Sacral spine : Severe tenderness over the Sacroiliac joint: right side / left side Range of motion: Flexion of the lumbar spine <60 degrees Range of motion: Extension of the lumbar spine <20 degrees Gaenslen's Test positive Colt's Test positive Fabiana test: positive right side / left side Thigh Thrust Test Sacral Thrust Test Imaging: MRI without contrast of the lumbar spine from 11/13/21 reviewed Assessment/ Plan : Lumbar DDD, Lumbar spondylosis, Lumbar facet arthropathy Recommendation of LESI L5-S1. may need a series of injections, up to 3 within a 6 mo period, for optimal pain relief. Risks, benefits of procedure discussed and patient verbalized understanding. Admits to aspirin or anti- coagulant use or medical history of diabetes. Protocol for discontinuation/ continuation of medications mare procedure discussed. Need medical clearance from Xena Pettit PA-C. All questions answered. I have spent greater than 30 minutes on patient care today. Dr Correa was available by phone for the evaluation of this patient. The time was used to review the medical records including relevant urine studies and Prescription history (MAPs), review of the available imaging, evaluation and examination of the patient, coordination of care with the medical staff and if applicable referring physicians, as well as creation of the medical record - Pain Location Bilateral Lower Back Non-Pharmacological Interventions: Heat, Sitting Pharmacological Interventions: Medication, Topical Medication Home Medications: Ambulatory Orders Albuterol Nebulized [Ventolin Nebulized] 2.5 mg INHALATION RT-QID 08/27/21 Aspirin EC [Ecotrin Low Dose] 324 mg PO DAILY PRN 08/27/21 Furosemide [Lasix] 20 mg PO DAILY 08/27/21 Insulin NPH Hum/Reg Insulin Hm [NovoLIN 70-30 100 UNIT/ML VIAL] 35 unit SQ DAILY 08/27/21 Potassium Chloride ER [K-Dur 10] 10 meq PO DAILY 08/27/21 Verapamil HCl [Verapamil ER] 180 mg PO BID 08/27/21 metFORMIN HCL 500 mg PO W/BRKFST 08/27/21 metFORMIN HCL [Glucophage] 1,000 mg PO W/SUPPER 08/27/21 traMADol HCL 50 mg PO BID 08/27/21 Apixaban [Eliquis] 5 mg PO BID #60 tab 08/28/21 Montelukast [Singulair] 10 mg PO HS #30 tab 08/28/21 Controlled Substance Measures - Controlled Substance Measures Is patient prescribed a controlled substance at discharge?: No
== END ==
LOC: PNWHC3 10:50
PROVIDERS: ATTEND Specialist
DX: M51.16 Intervertebral disc disorders with radiculopathy, lumbar region (principal); M47.26 Other spondylosis with radiculopathy, lumbar region; R29.898 Other symptoms and signs involving the musculoskeletal system; I10 Essential (primary) hypertension; I48.91 Unspecified atrial fibrillation; E11.9 Type 2 diabetes mellitus without complications; Z79.84 Long term (current) use of oral hypoglycemic drugs; Z79.4 Long term (current) use of insulin; Z88.0 Allergy status to penicillin
CPT/HCPCS: 99211

== ENCOUNTER 2022-12-21 17:41 | Inpatient (IN) | payer MEDICARE ==
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
--- NOTE | 2022-12-21 18:36 | XR ---
EXAMINATION TYPE: XR chest 2V DATE OF EXAM: 12/21/2022 COMPARISON: 08/27/2021 HISTORY: 72-year-old female dysrhythmia, shortness of breath TECHNIQUE: AP and lateral views FINDINGS: Heart mild to moderately enlarged. Large body habitus, portable technique and results in hazy densiti es especially in the mid and lower lungs. No definite consolidation or pleural effusion when correlat ing with the lateral view. IMPRESSION: [id number] cardiomegaly. Portable technique further limited by large body habitus. No definite acute process.
[2022-12-21] MEDS: DILTIAZEM 125 MG in SODIUM CHLORIDE 0.9% 100 ML IV SCH (18:41)
[2022-12-21 19:06] LABS: Basophils % (A) 0 %; Eosinophils # (A) 0.1 k/uL (0-0.7); Eosinophils % (A) 0 %; HCT 34.1 % (34.0-46.0); HGB 11.3 gm/dL (11.4-16.0); Hypochromasia Slight; Lymphocytes # (A) 1.2 k/uL (1.0-4.8); Lymphocytes % (A) 10 %; MCH 29.8 pg (25.0-35.0); MCV 90.1 fL (80.0-100.0); Mean Platelet Volume 9.7; Monocytes # (A) 0.4 k/uL (0-1.0); Monocytes % (A) 3 %; Neutrophils # (A) 10.8 k/uL (1.3-7.7); Neutrophils % (A) 87 %; Platelet Count 198 k/uL (150-450); RBC 3.79 m/uL (3.80-5.40); RDW 14.9 % (11.5-15.5); WBC 12.5 k/uL (3.8-10.6)
[2022-12-21 19:11] LABS: ALT 36 U/L (4-34); AST 50 U/L (14-36); African American GFR (CKD) 25 (>60 ml/min/1.73 sqM); Albumin 3.8 g/dL (3.5-5.0); Alkaline Phosphatase 113 U/L (38-126); Anion Gap 12 mmol/L; Blood Urea Nitrogen 35 mg/dL (7-17); Calcium 7.9 mg/dL (8.4-10.2); Carbon Dioxide 20 mmol/L (22-30); Chloride 100 mmol/L (98-107); Glucose 367 mg/dL (74-99); Magnesium 1.8 mg/dL (1.6-2.3); Non-African American GFR(CKD) 22 (>60 ml/min/1.73 sqM); Sodium 132 mmol/L (137-145); Total Bilirubin 0.7 mg/dL (0.2-1.3); Total Protein 6.9 g/dL (6.3-8.2)
[2022-12-21 19:17] LABS: INR 1.2 (<1.2); Partial Thromboplastin Time 26.5 sec (22.0-30.0); Prothrombin Time 12.1 sec (9.0-12.0)
[2022-12-21 19:27] LABS: T4, Free (Free Thyroxine) 1.63 ng/dL (0.78-2.19)
[2022-12-21 19:34] LABS: Potassium 6.3 mmol/L (3.5-5.1)
[2022-12-21] MEDS ORDERED: SODIUM ZIRCONIUM CYCLOSILICATE 10 GM PACKET PO ONE (19:58)
[2022-12-21] MEDS ORDERED: INSULIN REGULAR 100 UNIT/ML VIAL (IV) IV ONE (19:58)
[2022-12-21] MEDS ORDERED: DEXTROSE 50% SYRINGE 50 ML IVP ONE (19:58)
[2022-12-21] MEDS ORDERED: CALCIUM GLUCONATE IN NACL 1 GM in SALINE 1 100ML.BAG IVPB ONE (19:58)
[2022-12-21] MEDS ORDERED: ASPIRIN 325 MG TAB PO STA (20:05)
[2022-12-21 20:13] LABS: Glucose,Whole Blood 398 mg/dL (70-110)
[2022-12-21 21:50] LABS: Glucose,Whole Blood 385 mg/dL (70-110)
[2022-12-21] MEDS: FUROSEMIDE 10 MG/ML 4 ML VIAL IV SCH (21:50)
[2022-12-21] MEDS: NITROGLYCERIN OINT 1 INCH/GM PACKET TOPICAL SCH ×2 (21:50→22:49)
[2022-12-21] MEDS ORDERED: NON FORMULARY DRUG (Epinephrine [Primatene Mist] 11.7 GM Each) INHALATION PRN (22:02)
[2022-12-21] MEDS ORDERED: ALBUTEROL NEBULIZED 2.5 MG/3 ML INHALATION PRN (22:02)
[2022-12-21] MEDS ORDERED: DEXTROSE 50% SYRINGE 50 ML IVP PRN ×2 (22:04)
[2022-12-21] MEDS: MONTELUKAST 10 MG TAB PO SCH (22:12)
[2022-12-21] MEDS: LORATADINE 10 MG TAB PO SCH (22:12)
[2022-12-21] MEDS: RIVAROXABAN 20 MG TAB PO SCH (22:12)
[2022-12-21] MEDS: VERAPAMIL SR 180 MG TABLET.ER PO SCH (22:38)
[2022-12-22] MEDS ORDERED: INSULIN REGULAR 100 UNIT/ML VIAL (IV) IV ONE (01:06)
[2022-12-22] MEDS ORDERED: SODIUM ZIRCONIUM CYCLOSILICATE 10 GM PACKET PO ONE (01:06)
[2022-12-22] MEDS ORDERED: CALCIUM GLUCONATE IN NACL 1 GM in SALINE 1 100ML.BAG IVPB ONE (01:07)
[2022-12-22] MEDS ORDERED: DEXTROSE 50% SYRINGE 50 ML IVP STA (01:07)
[2022-12-22] MEDS: NITROGLYCERIN OINT 1 INCH/GM PACKET TOPICAL SCH (05:33)
[2022-12-22 05:36] LABS: Glucose,Whole Blood 338 mg/dL (70-110)
[2022-12-22] MEDS: INSULIN ASPART (NovoLOG) 100 UNIT/ML VIAL SQ SCH ×4 (05:37→20:21)
[2022-12-22 08:44] LABS: African American GFR (CKD) 22 (>60 ml/min/1.73 sqM); Anion Gap 10 mmol/L; Blood Urea Nitrogen 42 mg/dL (7-17); Calcium 7.9 mg/dL (8.4-10.2); Carbon Dioxide 21 mmol/L (22-30); Chloride 103 mmol/L (98-107); Glucose 233 mg/dL (74-99); Non-African American GFR(CKD) 19 (>60 ml/min/1.73 sqM); Potassium 4.3 mmol/L (3.5-5.1); Sodium 134 mmol/L (137-145)
[2022-12-22] MEDS: VERAPAMIL SR 180 MG TABLET.ER PO SCH ×2 (08:54→20:21)
[2022-12-22] MEDS: FUROSEMIDE 10 MG/ML 4 ML VIAL IV SCH ×2 (08:54→11:38)
[2022-12-22] MEDS ORDERED: ASPIRIN 325 MG TAB PO SCH (09:00)
[2022-12-22] MEDS: SYMBICORT 80-4.5 MCG INHALER INHALATION SCH ×2 (09:14→21:08)
[2022-12-22] MEDS: IPRATROPIUM 0.5 MG/2.5 ML NEBU INHALATION SCH ×4 (09:15→21:08)
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
--- NOTE | 2022-12-22 11:33 | US ---
EXAMINATION TYPE: US kidneys/renal and bladder DATE OF EXAM: 12/22/2022 COMPARISON: NONE CLINICAL INDICATION: Female, 72 years old with history of Janae; JANAE EXAM MEASUREMENTS: Right Kidney: 11.7 x 5.4 x 4.3 cm Left Kidney: 12.6 x 6.1 x 4.7 cm Extremely limited exam, pt morbidly obese Right Kidney: Limited. Cortex appears thin. Left Kidney: Slightly enlarged. Cortex appears thin. Hypoechoic area seen medially: 2.9 x 2.4 x 2.4 c m. Bladder: Not visualized Bilateral Jets seen: No IMPRESSION: Findings suggestive of chronic renal disease with thinning of the cortex. No hydronephrosis visualize d.
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
[2022-12-22 11:43] LABS: Glucose,Whole Blood 201 mg/dL (70-110)
[2022-12-22] MEDS: SODIUM BICARBONATE TAB 650 MG TAB PO SCH ×2 (11:51→20:21)
[2022-12-22 13:02] LABS: Appearance,Urine Cloudy (Clear); Bacteria,Urine Occasional /hpf; Bilirubin,Urine Negative (Negative); Blood,Urine Negative (Negative); Color,Urine Brown; Glucose,Urine (UA) Negative (Negative); Hyaline Casts,Urine 13 /lpf (0-2); Ketones,Urine Negative (Negative); Leukocyte Esterase,Urine Large (Negative); Mucus,Urine Rare /hpf; Nitrite,Urine Positive (Negative); Protein,Urine 2+ (Negative); RBC,Urine 2 /hpf (0-5); Specific Gravity,Urine 1.012 (1.001-1.035); Squamous Epithelial Cell,Urine 17 /hpf (0-4); WBC,Urine 23 /hpf (0-5)
[2022-12-22 13:11] LABS: Creatinine,Urine Random 141.6 mg/dL
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
--- NOTE | 2022-12-22 15:25 | CA ---
Transthoracic Echo Report Name: Ina Alfaro Age: 72 Gender: F : 1950 Exam Date: 12/22/2022 13:01 Exam Location: [facility] Ht (in): 60 Wt (lb): 297 Ordering Physician: Darren Kennedy MD ([id number]) Attending/Referring Phys: Padding Machine Operator Romy Lima [facility] Procedure CPT: Indications: dyspnea Cardiac Hx: Technical Quality: Very technically difficult study Contrast 1: Lumason Total Dose (mL): 5 Contrast 2: Total Dose (mL): MEASUREMENTS (Male / Female) Normal Values 2D ECHO LV Diastolic Diameter PLAX 5.5 cm 4.2 - 5.9 / 3.9 - 5.3 cm LV Systolic Diameter PLAX 3.7 cm IVS Diastolic Thickness 1.3 cm 0.6 - 1.0 / 0.6 - 0.9 cm LVPW Diastolic Thickness 1.4 cm 0.6 - 1.0 / 0.6 - 0.9 cm LV Relative Wall Thickness 0.5 LVOT Diameter 2.0 cm M-MODE Aortic Root Diameter MM 2.5 cm LA Systolic Diameter MM 4.4 cm LA Ao Ratio MM 1.8 AV Cusp Separation MM 1.8 cm DOPPLER AV Peak Velocity 154.9 cm/s AV Peak Gradient 9.6 mmHg AV Mean Velocity 130.2 cm/s AV Mean Gradient 7.0 mmHg AV Velocity Time Integral 36.1 cm LVOT Peak Velocity 100.4 cm/s LVOT Peak Gradient 4.0 mmHg LVOT Velocity Time Integral 19.6 cm LVOT Stroke Volume 60.3 cm??? LVOT Stroke Volume Index 27.3 ml/m??? LVOT Cardiac Index 1819.3 cm???/min???m??? AV Area Cont Eq vti 1.7 cm??? AV Area Cont Eq pk 2.0 cm??? Mitral E Point Velocity 90.5 cm/s Mitral A Point Velocity 104.6 cm/s Mitral E to A Ratio 0.9 MV Deceleration Time 270.0 ms LV E' Lateral Velocity 5.3 cm/s Mitral E to LV E' Lateral Ratio 17.0 LV E' Septal Velocity 6.7 cm/s Mitral E to LV E' Septal Ratio 13.4 Right Atrial Pressure 8.0 mmHg FINDINGS Left Ventricle Mildly increased left ventricular wall thickness. No obvious regional wall motion abnormalities. Left ventricular ejection fraction is estimated at 55- 60%. Right Ventricle Right ventricle not well visualized. Right Atrium Right atrium not well visualized. Left Atrium Left atrium not well visualized. Mitral Valve Mitral valve not well visualized. Mild mitral annular calcification. Aortic Valve Aortic valve not well visualized. Tricuspid Valve Tricuspid valve not well visualized. Pulmonic Valve Pulmonic valve not well visualized. Pericardium Minimal pericardial effusion (normal variant). Aorta Normal size aortic root. CONCLUSIONS 1. Technically difficult study 2. Overall left ventricle systolic function is normal 3. Valvular structures are not well visualized Previewed by: Dr. Darren Kennedy MD (Electronically Signed) Final Date: 22 December 2022 15:24
[2022-12-22 16:21] LABS: Glucose,Whole Blood 282 mg/dL (70-110)
[2022-12-22] MEDS: FUROSEMIDE 20 MG TAB PO SCH (16:43)
[2022-12-22] MEDS: DILTIAZEM 125 MG in SODIUM CHLORIDE 0.9% 100 ML IV SCH (19:12)
[2022-12-22 20:13] LABS: Glucose,Whole Blood 317 mg/dL (70-110)
[2022-12-22] MEDS: MONTELUKAST 10 MG TAB PO SCH (20:21)
[2022-12-22] MEDS: RIVAROXABAN 20 MG TAB PO SCH (20:21)
[2022-12-22] MEDS: METOPROLOL TARTRATE 25 MG TAB PO SCH (20:21)
[2022-12-22] MEDS: LORATADINE 10 MG TAB PO SCH (20:21)
[2022-12-22] MEDS: DICLOFENAC SODIUM GEL 100 GM TUBE TOPICAL SCH ×2 (20:28→22:56)
[2022-12-23 06:15] LABS: Glucose,Whole Blood 248 mg/dL (70-110)
[2022-12-23] MEDS: INSULIN ASPART (NovoLOG) 100 UNIT/ML VIAL SQ SCH ×4 (06:15→21:03)
[2022-12-23 07:11] LABS: HGB 10.2 gm/dL (11.4-16.0); Hypochromasia Slight; MCHC 30.9 g/dL (31.0-37.0); MCV 90.6 fL (80.0-100.0); Mean Platelet Volume 9.5; Platelet Count 168 k/uL (150-450); RBC 3.64 m/uL (3.80-5.40); RDW 14.7 % (11.5-15.5); WBC 8.2 k/uL (3.8-10.6)
[2022-12-23] MEDS: IPRATROPIUM 0.5 MG/2.5 ML NEBU INHALATION SCH ×4 (07:11→20:17)
[2022-12-23] MEDS: SYMBICORT 80-4.5 MCG INHALER INHALATION SCH ×2 (07:12→20:18)
[2022-12-23 07:29] LABS: ALT 50 U/L (4-34); AST 33 U/L (14-36); African American GFR (CKD) 22 (>60 ml/min/1.73 sqM); Albumin 3.2 g/dL (3.5-5.0); Alkaline Phosphatase 93 U/L (38-126); Anion Gap 13 mmol/L; Blood Urea Nitrogen 49 mg/dL (7-17); Calcium 7.6 mg/dL (8.4-10.2); Carbon Dioxide 19 mmol/L (22-30); Chloride 104 mmol/L (98-107); Glucose 232 mg/dL (74-99); Magnesium 1.8 mg/dL (1.6-2.3); Non-African American GFR(CKD) 19 (>60 ml/min/1.73 sqM); Potassium 4.8 mmol/L (3.5-5.1); Sodium 136 mmol/L (137-145); Total Bilirubin 0.3 mg/dL (0.2-1.3); Total Protein 5.9 g/dL (6.3-8.2)
[2022-12-23] MEDS: ASPIRIN 81 MG PO SCH (09:31)
[2022-12-23] MEDS: SODIUM BICARBONATE TAB 650 MG TAB PO SCH ×3 (09:31→21:03)
[2022-12-23] MEDS: VERAPAMIL SR 180 MG TABLET.ER PO SCH ×2 (09:31→21:03)
[2022-12-23] MEDS: METOPROLOL TARTRATE 25 MG TAB PO SCH ×2 (09:31→21:03)
[2022-12-23] MEDS: FUROSEMIDE 20 MG TAB PO SCH ×2 (09:31→16:49)
[2022-12-23] MEDS: DICLOFENAC SODIUM GEL 100 GM TUBE TOPICAL SCH ×4 (10:28→21:04)
[2022-12-23 10:35] LABS: % Iron Saturation 8.29 (12.00-45.00)
--- NOTE | 2022-12-23 11:33 | P.PN ---
Subjective Patient is seen in follow-up for acute kidney injury on chronic kidney disease. Renal function stable. Nonoliguric. On oral Lasix per cardiology. Hemodynamically stable. On room air. Denies chest pain or shortness of breath. No vomiting or diarrhea. Vital signs are stable. General: No acute distress. HEENT: Head exam is unremarkable. LUNGS: No audible rhonchi or wheezes. HEART: Rate and Rhythm are regular. ABDOMEN: Obese, nontender. EXTREMITITES: 1+ edema. Objective - Vital Signs Vital signs: Vital Signs Temp 97.9 F 12/23/22 08:00 Pulse 68 12/23/22 11:24 Resp 16 12/23/22 08:00 BP 146/79 12/23/22 08:00 Pulse Ox 97 12/23/22 08:00 FiO2 Intake & Output 12/22/22 12/23/22 12/23/22 18:59 06:59 18:59 Intake Total 358 118 Output Total 325 550 Balance 33 -432 Weight 134.9 kg 135.5 kg Intake: Oral 358 118 Output: Urine 325 550 - Labs CBC & Chem 7: 12/23/22 06:53 12/23/22 06:53 Labs: Abnormal Lab Results - Last 24 Hours (Table) 12/22/22 12/22/22 12/22/22 Range/Units 08:05 11:41 12:35 RBC (3.80-5.40) m/uL Hgb (11.4-16.0) gm/dL Hct (34.0-46.0) % MCHC (31.0-37.0) g/dL Sodium (137-145) mmol/L Carbon Dioxide (22-30) mmol/L BUN (7-17) mg/dL Creatinine (0.52-1.04) mg/dL Glucose (74-99) mg/dL POC Glucose (mg/dL) 201 H (70-110) mg/dL Hemoglobin A1c 10.3 H (<=6.0) % Calcium (8.4-10.2) mg/dL Iron (50-170) UG/DL % Saturation (12.00-45.00) ALT (4-34) U/L Total Protein (6.3-8.2) g/dL Albumin (3.5-5.0) g/dL Urine Appearance Cloudy H (Clear) Urine Protein 2+ H (Negative) Urine Nitrite Positive H (Negative) Ur Leukocyte Esterase Large H (Negative) Urine WBC 23 H (0-5) /hpf Ur Squamous Epith Cells 17 H (0-4) /hpf Urine Bacteria Occasional H (None) /hpf Hyaline Casts 13 H (0-2) /lpf Urine Mucus Rare H (None) /hpf 12/22/22 12/22/22 12/22/22 Range/Units 16:18 16:30 20:11 RBC (3.80-5.40) m/uL Hgb (11.4-16.0) gm/dL Hct (34.0-46.0) % MCHC (31.0-37.0) g/dL Sodium (137-145) mmol/L Carbon Dioxide (22-30) mmol/L BUN (7-17) mg/dL Creatinine (0.52-1.04) mg/dL Glucose (74-99) mg/dL POC Glucose (mg/dL) 282 H 317 H (70-110) mg/dL Hemoglobin A1c (<=6.0) % Calcium (8.4-10.2) mg/dL Iron 34 L (50-170) UG/DL % Saturation 8.29 L (12.00-45.00) ALT (4-34) U/L Total Protein (6.3-8.2) g/dL Albumin (3.5-5.0) g/dL Urine Appearance (Clear) Urine Protein (Negative) Urine Nitrite (Negative) Ur Leukocyte Esterase (Negative) Urine WBC (0-5) /hpf Ur Squamous Epith Cells (0-4) /hpf Urine Bacteria (None) /hpf Hyaline Casts (0-2) /lpf Urine Mucus (None) /hpf 12/23/22 12/23/22 12/23/22 Range/Units 06:12 06:53 06:53 RBC 3.64 L (3.80-5.40) m/uL Hgb 10.2 L (11.4-16.0) gm/dL Hct 33.0 L (34.0-46.0) % MCHC 30.9 L (31.0-37.0) g/dL Sodium 136 L (137-145) mmol/L Carbon Dioxide 19 L (22-30) mmol/L BUN 49 H (7-17) mg/dL Creatinine 2.49 H (0.52-1.04) mg/dL Glucose 232 H (74-99) mg/dL POC Glucose (mg/dL) 248 H (70-110) mg/dL Hemoglobin A1c (<=6.0) % Calcium 7.6 L (8.4-10.2) mg/dL Iron (50-170) UG/DL % Saturation (12.00-45.00) ALT 50 H (4-34) U/L Total Protein 5.9 L (6.3-8.2) g/dL Albumin 3.2 L (3.5-5.0) g/dL Urine Appearance (Clear) Urine Protein (Negative) Urine Nitrite (Negative) Ur Leukocyte Esterase (Negative) Urine WBC (0-5) /hpf Ur Squamous Epith Cells (0-4) /hpf Urine Bacteria (None) /hpf Hyaline Casts (0-2) /lpf Urine Mucus (None) /hpf Assessment and Plan Plan: Assessment: 1. Acute kidney injury secondary to hemodynamic ATN. Creatinine 2.1 admission and is stable at 2.49 today. No hydronephrosis noted on kidney ultrasound. UA suggestive of UTI. Asymptomatic. 2. Chronic kidney disease stage IIIB with baseline creatinine 1.2-1.4 secondary to diabetic kidney disease. 3. A. fib with RVR status post Cardizem drip. Cardiology following. 4. Hyperkalemia secondary to acute kidney injury, acidosis, hyperglycemia. Was also on lisinopril and potassium supplementation prior to admission. Improved with medical management. 5. Metabolic acidosis secondary to acute kidney injury. 6. Volume overload. Plan: Maintain oral Lasix. Encourage oral intake. Avoid nephrotoxins. Continue to monitor renal function and urine output. Increase bicarb frequency to 3 times a day. Preserved ejection fraction noted on echo. Blood sugar control.
[2022-12-23 11:51] LABS: Glucose,Whole Blood 276 mg/dL (70-110)
--- NOTE | 2022-12-23 12:11 | P.PN ---
Subjective Progress Note Date: 12/23/22 PROGRESS NOTE The patient is a 72-year-old female with known history of paroxysmal atrial fibrillation, hypertension, obesity who has been complaining of progressive dyspnea for the last week associated with the warmer weather. She had no chest discomfort. She came into the emergency room and was noted to be tachycardic, she was regular and could represent SVT, she subsequently converted to sinus mechanism. She had minimal troponin elevation but her baseline renal function are abnormal. She has no prior documented history of myocardial infarction or CHF. She was in the hospital in August 2021 and a diet time had paroxysmal atrial fibrillation. According to the family she was admitted to [facility] is what appears to be SVT and AVNRT although no records are available to me at this time. The patient has occasional peripheral edema. She has no clear PND or orthopnea. Her activity level is limited. She has stopped smoking over 20 years ago. She has been anticoagulated. December 23: The patient is feeling better today, her breathing is better. She denies any chest discomfort or dizziness. She continues to be in sinus mechanism. She has no nausea or vomiting. She had an echocardiogram yesterday that showed a preserved systolic function, it was technically difficult study. She is followe d by the nephrology team. Medications: Aspirin, furosemide 20 mg twice a day, insulin, metoprolol 25 mg twice a day, sodium bicarbonate, verapamil 180 mg twice a day, Claritin PHYSICAL EXAMINATION: Blood pressure 131/70 heart rate 70 LUNGS: [Clear to auscultation] HEART: [Regular rate and rhythm, S1, S2. No S3. Systolic ejection murmur] ABDOMEN: [Soft, nontender, no organomegaly] EXTREMETIES: [Trace edema] LAB: BUN 49, creatinine 2.49, potassium 4.8, hemoglobin 10.2. IMPRESSION: 1. SVT, back in sinus mechanism 2. Symptoms of dyspnea was possible tracheobronchitis 3. CHF with preserved systolic function 4. History of diabetes PLAN: 1. Follow her renal functions 2. Continue oral diuretics 3. Increase physical activity 4. If renal functions better, add Farxiga Objective - Vital Signs Vital signs: Vital Signs Temp 97.9 F 12/23/22 08:00 Pulse 68 12/23/22 11:24 Resp 16 12/23/22 08:00 BP 146/79 12/23/22 08:00 Pulse Ox 97 07/16/23 08:00 FiO2 Intake & Output 12/22/22 12/23/22 12/23/22 18:59 06:59 18:59 Intake Total 358 118 Output Total 325 550 Balance 33 -432 Weight 134.9 kg 135.5 kg Intake: Oral 358 118 Output: Urine 325 550 - Labs CBC & Chem 7: 12/23/22 06:53 12/23/22 06:53 Labs: Abnormal Lab Results - Last 24 Hours (Table) 12/22/22 12/22/22 12/22/22 Range/Units 08:05 12:35 16:18 RBC (3.80-5.40) m/uL Hgb (11.4-16.0) gm/dL Hct (34.0-46.0) % MCHC (31.0-37.0) g/dL Sodium (137-145) mmol/L Carbon Dioxide (22-30) mmol/L BUN (7-17) mg/dL Creatinine (0.52-1.04) mg/dL Glucose (74-99) mg/dL POC Glucose (mg/dL) 282 H (70-110) mg/dL Hemoglobin A1c 10.3 H (<=6.0) % Calcium (8.4-10.2) mg/dL Iron (50-170) UG/DL % Saturation (12.00-45.00) ALT (4-34) U/L Total Protein (6.3-8.2) g/dL Albumin (3.5-5.0) g/dL Urine Appearance Cloudy H (Clear) Urine Protein 2+ H (Negative) Urine Nitrite Positive H (Negative) Ur Leukocyte Esterase Large H (Negative) Urine WBC 23 H (0-5) /hpf Ur Squamous Epith Cells 17 H (0-4) /hpf Urine Bacteria Occasional H (None) /hpf Hyaline Casts 13 H (0-2) /lpf Urine Mucus Rare H (None) /hpf 12/22/22 12/22/22 12/23/22 Range/Units 16:30 20:11 06:12 RBC (3.80-5.40) m/uL Hgb (11.4-16.0) gm/dL Hct (34.0-46.0) % MCHC (31.0-37.0) g/dL Sodium (137-145) mmol/L Carbon Dioxide (22-30) mmol/L BUN (7-17) mg/dL Creatinine (0.52-1.04) mg/dL Glucose (74-99) mg/dL POC Glucose (mg/dL) 317 H 248 H (70-110) mg/dL Hemoglobin A1c (<=6.0) % Calcium (8.4-10.2) mg/dL Iron 34 L (50-170) UG/DL % Saturation 8.29 L (12.00-45.00) ALT (4-34) U/L Total Protein (6.3-8.2) g/dL Albumin (3.5-5.0) g/dL Urine Appearance (Clear) Urine Protein (Negative) Urine Nitrite (Negative) Ur Leukocyte Esterase (Negative) Urine WBC (0-5) /hpf Ur Squamous Epith Cells (0-4) /hpf Urine Bacteria (None) /hpf Hyaline Casts (0-2) /lpf Urine Mucus (None) /hpf 12/23/22 12/23/22 12/23/22 Range/Units 06:53 06:53 11:49 RBC 3.64 L (3.80-5.40) m/uL Hgb 10.2 L (11.4-16.0) gm/dL Hct 33.0 L (34.0-46.0) % MCHC 30.9 L (31.0-37.0) g/dL Sodium 136 L (137-145) mmol/L Carbon Dioxide 19 L (22-30) mmol/L BUN 49 H (7-17) mg/dL Creatinine 2.49 H (0.52-1.04) mg/dL Glucose 232 H (74-99) mg/dL POC Glucose (mg/dL) 276 H (70-110) mg/dL Hemoglobin A1c (<=6.0) % Calcium 7.6 L (8.4-10.2) mg/dL Iron (50-170) UG/DL % Saturation (12.00-45.00) ALT 50 H (4-34) U/L Total Protein 5.9 L (6.3-8.2) g/dL Albumin 3.2 L (3.5-5.0) g/dL Urine Appearance (Clear) Urine Protein (Negative) Urine Nitrite (Negative) Ur Leukocyte Esterase (Negative) Urine WBC (0-5) /hpf Ur Squamous Epith Cells (0-4) /hpf Urine Bacteria (None) /hpf Hyaline Casts (0-2) /lpf Urine Mucus (None) /hpf
--- NOTE | 2022-12-23 13:11 | P.PN ---
Subjective Progress Note Date: 12/23/22 patient is a 72 year old female with past medical history significant for insulin-dependent diabetes mellitus, atrial fibrillation presented to the ER because of worsening shortness of breath. Patient has been noticing increasing shortness of breath on exertion for the last few days. Denies any chest pressure. Denies any palpitations. Does have chronic swelling of lower extremities which according to her has been unchanged. Denies any orthopnea or PND. Denies any fever or chills. No complaints of nausea, vomiting or abdominal pain. Because her worsening shortness of breath, patient came to the ER Initial lab work done in the ER showed WBC 12.5, hemoglobin 11.3, sodium 1:30, potassium 6.3, BUN 35, creatinine 2.20, magnesium 1.8, AST 50, ALT 36, troponin 0.085, proBNP 5220 Chest x-ray done showed mild to moderate cardiomegaly, no definite acute process Patient was admitted to medicine service 12/23. Patient seen and examined. Complaining of leg cramps. REVIEW OF SYSTEMS: CONSTITUTIONAL: No fever, no malaise,. CARDIOVASCULAR: No chest pain, no palpitations, no syncope. PULMONARY: No shortness of breath, no cough, GASTROINTESTINAL: No diarrhea, no nausea, no vomiting, no abdominal pain. NEUROLOGICAL: No headaches, no weakness, PHYSICAL EXAMINATION: GENERAL: The patient is alert and oriented x3, not in any acute distress. Well developed, well nourished. HEENT: Pupils are round and equally reacting to light. EOMI. No scleral icterus. No conjunctival pallor. Normocephalic, atraumatic. No pharyngeal erythema. No thyromegaly. CARDIOVASCULAR: S1 and S2 present. No murmurs, rubs, or gallops. PULMONARY: Chest is clear to auscultation, no wheezing or crackles. ABDOMEN: Soft, nontender, nondistended, normoactive bowel sounds. No palpable organomegaly. MUSCULOSKELETAL: No joint swelling or deformity. EXTREMITIES: No cyanosis, clubbing, or pedal edema. NEUROLOGICAL: Gross neurological examination did not reveal any focal deficits. SKIN: No rashes. Assessment and plan Exertional dyspnea SVT Hyperkalemia Hypertension COPD Acute on chronic kidney disease Monitor vital signs Monitor CBC Monitor CMP Continue telemetry monitoring Strict I's and O's, daily weights, continue Lasix. Continue oral bicarbonate follow up nephrology recommendations Follow-up on cardiology recommendations Labs and medication were reviewed.. Continue same treatment. Continue with symptomatic treatment. Resume home medication. Monitor labs and vitals. DVT and GI prophylaxis. Further recommendations as per clinical course of the patient Objective - Vital Signs Vital signs: Vital Signs Temp 97.5 F L 12/23/22 12:00 Pulse 70 12/23/22 12:00 Resp 16 12/23/22 12:00 BP 138/56 12/23/22 12:00 Pulse Ox 95 12/23/22 12:00 FiO2 Intake & Output 12/22/22 12/23/22 12/23/22 18:59 06:59 18:59 Intake Total 358 118 Output Total 325 550 Balance 33 -432 Weight 134.9 kg 135.5 kg Intake: Oral 358 118 Output: Urine 325 550 - Labs CBC & Chem 7: 12/23/22 06:53 12/23/22 06:53 Labs: Abnormal Lab Results - Last 24 Hours (Table) 12/22/22 12/22/22 12/22/22 Range/Units 08:05 16:18 16:30 RBC (3.80-5.40) m/uL Hgb (11.4-16.0) gm/dL Hct (34.0-46.0) % MCHC (31.0-37.0) g/dL Sodium (137-145) mmol/L Carbon Dioxide (22-30) mmol/L BUN (7-17) mg/dL Creatinine (0.52-1.04) mg/dL Glucose (74-99) mg/dL POC Glucose (mg/dL) 282 H (70-110) mg/dL Hemoglobin A1c 10.3 H (<=6.0) % Calcium (8.4-10.2) mg/dL Iron 34 L (50-170) UG/DL % Saturation 8.29 L (12.00-45.00) ALT (4-34) U/L Total Protein (6.3-8.2) g/dL Albumin (3.5-5.0) g/dL 12/22/22 12/23/22 12/23/22 Range/Units 20:11 06:12 06:53 RBC 3.64 L (3.80-5.40) m/uL Hgb 10.2 L (11.4-16.0) gm/dL Hct 33.0 L (34.0-46.0) % MCHC 30.9 L (31.0-37.0) g/dL Sodium (137-145) mmol/L Carbon Dioxide (22-30) mmol/L BUN (7-17) mg/dL Creatinine (0.52-1.04) mg/dL Glucose (74-99) mg/dL POC Glucose (mg/dL) 317 H 248 H (70-110) mg/dL Hemoglobin A1c (<=6.0) % Calcium (8.4-10.2) mg/dL Iron (50-170) UG/DL % Saturation (12.00-45.00) ALT (4-34) U/L Total Protein (6.3-8.2) g/dL Albumin (3.5-5.0) g/dL 12/23/22 12/23/22 Range/Units 06:53 11:49 RBC (3.80-5.40) m/uL Hgb (11.4-16.0) gm/dL Hct (34.0-46.0) % MCHC (31.0-37.0) g/dL Sodium 136 L (137-145) mmol/L Carbon Dioxide 19 L (22-30) mmol/L BUN 49 H (7-17) mg/dL Creatinine 2.49 H (0.52-1.04) mg/dL Glucose 232 H (74-99) mg/dL POC Glucose (mg/dL) 276 H (70-110) mg/dL Hemoglobin A1c (<=6.0) % Calcium 7.6 L (8.4-10.2) mg/dL Iron (50-170) UG/DL % Saturation (12.00-45.00) ALT 50 H (4-34) U/L Total Protein 5.9 L (6.3-8.2) g/dL Albumin 3.2 L (3.5-5.0) g/dL
[2022-12-23 16:29] LABS: Glucose,Whole Blood 364 mg/dL (70-110)
[2022-12-23 20:18] LABS: Glucose,Whole Blood 321 mg/dL (70-110)
[2022-12-23] MEDS: LORATADINE 10 MG TAB PO SCH (21:03)
[2022-12-23] MEDS: MONTELUKAST 10 MG TAB PO SCH (21:03)
[2022-12-23] MEDS: RIVAROXABAN 20 MG TAB PO SCH (21:03)
[2022-12-24 04:05] VITALS: RESP 18
[2022-12-24 06:21] LABS: Glucose,Whole Blood 188 mg/dL (70-110)
[2022-12-24] MEDS: INSULIN ASPART (NovoLOG) 100 UNIT/ML VIAL SQ SCH ×2 (06:23→12:10)
[2022-12-24] MEDS: SYMBICORT 80-4.5 MCG INHALER INHALATION SCH (09:08)
[2022-12-24] MEDS: IPRATROPIUM 0.5 MG/2.5 ML NEBU INHALATION SCH ×2 (09:08→12:15)
[2022-12-24 09:44] LABS: African American GFR (CKD) 30 (>60 ml/min/1.73 sqM); Anion Gap 9 mmol/L; Blood Urea Nitrogen 49 mg/dL (7-17); Carbon Dioxide 24 mmol/L (22-30); Chloride 106 mmol/L (98-107); Glucose 174 mg/dL (74-99); Magnesium 1.9 mg/dL (1.6-2.3); Non-African American GFR(CKD) 26 (>60 ml/min/1.73 sqM); Potassium 4.9 mmol/L (3.5-5.1); Sodium 139 mmol/L (137-145)
[2022-12-24] MEDS: VERAPAMIL SR 180 MG TABLET.ER PO SCH (10:08)
[2022-12-24] MEDS: SODIUM BICARBONATE TAB 650 MG TAB PO SCH (10:08)
[2022-12-24] MEDS: METOPROLOL TARTRATE 25 MG TAB PO SCH (10:08)
[2022-12-24] MEDS: ASPIRIN 81 MG PO SCH (10:08)
[2022-12-24] MEDS: FUROSEMIDE 20 MG TAB PO SCH (10:08)
[2022-12-24] MEDS: DICLOFENAC SODIUM GEL 100 GM TUBE TOPICAL SCH ×2 (10:09→12:05)
[2022-12-24 11:57] LABS: Glucose,Whole Blood 254 mg/dL (70-110)
[2022-12-24 12:06] VITALS: BMI 57.7
--- NOTE | 2022-12-24 12:38 | P.PN ---
Subjective Patient is seen for follow-up for acute kidney injury on top of chronic kidney disease. Serum creatinine slightly improved to 1.9 from peak of 2.49. The serum creatinine around 1.2-1.4 mg/dL in 2021. No significant complaints today. Maintained on low-dose loop diuretics. Objective - Vital Signs Vital signs: Vital Signs Temp 98.5 F 12/24/22 00:00 Pulse 82 12/24/22 12:26 Resp 18 12/24/22 04:00 BP 147/64 12/24/22 04:00 Pulse Ox 96 12/24/22 09:10 FiO2 21 12/24/22 09:10 Intake & Output 12/23/22 12/24/22 12/24/22 18:59 06:59 18:59 Intake Total 718 Output Total 1450 100 Balance -732 -100 Weight 134.2 kg 134.2 kg Intake: Oral 718 Output: Urine 1450 100 Other: # Voids 1 - Exam Patient is awake, comfortable, no acute distress Examination of the heart S1 and S2 Examination lungs bilateral breath sounds are heard Abdomen is soft nontender Examination lower extremities shows 1+ edema QUAD STAYER exam grossly intact - Labs CBC & Chem 7: 12/23/22 06:53 12/24/22 08:28 Labs: Abnormal Lab Results - Last 24 Hours (Table) 12/22/22 12/23/22 12/23/22 Range/Units 12:35 16:27 20:17 BUN (7-17) mg/dL Creatinine (0.52-1.04) mg/dL Glucose (74-99) mg/dL POC Glucose (mg/dL) 364 H 321 H (70-110) mg/dL Calcium (8.4-10.2) mg/dL Ur Random Sodium 25 L (40-220) mmol/L 12/24/22 12/24/22 12/24/22 Range/Units 06:19 08:28 11:54 BUN 49 H (7-17) mg/dL Creatinine 1.94 H (0.52-1.04) mg/dL Glucose 174 H (74-99) mg/dL POC Glucose (mg/dL) 188 H 254 H (70-110) mg/dL Calcium 8.0 L (8.4-10.2) mg/dL Ur Random Sodium (40-220) mmol/L Assessment and Plan Assessment: 1. Acute kidney injury secondary to hemodynamic ATN. Creatinine 2.1 admission and is stable at 1.9 today. No hydronephrosis noted on kidney ultrasound. UA shows 2+ protein, no blood nitride positive WBCs 23 2. Chronic kidney disease stage IIIB with baseline creatinine 1.2-1.4 secondary to diabetic kidney disease. 3. A. fib with RVR status post Cardizem drip. Cardiology following. 4. Hyperkalemia secondary to acute kidney injury, acidosis, hyperglycemia. Was also on lisinopril and potassium supplementation prior to admission. Improved with medical management. 5. Metabolic acidosis secondary to acute kidney injury. 6. Volume overload. 7. Asymptomatic pyuria Plan: Decrease sodium bicarb Continue current dose of Lasix Repeat labs in a.m.
[2022-12-24 13:36] VITALS: BP 128/72; PULSE 68; TEMP 98
--- NOTE | 2022-12-24 14:35 | P.DS ---
Providers Date of admission: 12/21/22 20:05 Expected date of discharge: 12/24/22 Attending physician: Gaston Boss MD Consults: 12/21/22 20:05 Consult Physician Routine Consulting Provider: Darren Kennedy Consult Reason/Comments: chf, a fib Do you want consulting provider notified?: Yes 12/22/22 09:35 Consult Physician Routine Consulting Provider: Clarence Thompson Consult Reason/Comments: Acute on chronic kidney disease, hyperkalemia Do you want consulting provider notified?: Yes Primary care physician: Janette Boss [facility] Course: Final Diagnoses: Acute diastolic CHF exacerbation with preserved systolic function SVT, converted to sinus rhythm Acute on chronic renal failure stage 4 Shortness of breath secondary to the above Diabetes mellitus This is a 72-year-old female admitted with multiple medical issues including acute CHF exacerbation, SVT and acute on chronic renal failure. Evaluated by cardiology, nephrology. Diuresed, currently maintained on oral sodium bicarb. Significant clinical improvement, bicarbonate and renal function improving. Cleared by cardiology for discharge. Patient will be discharged home today in a stable condition with guarded prognosis pending final DC recommendations/diuretics and DC clearance as per nephrology. The impression and plan of care has been dictated as directed. : I performed a history and examination of this patient, discussed the same with the dictator. I agree with the dictator's note ,documented as a scribe. Any additional findings or plans will be noted. Patient Condition at Discharge: Stable Plan - Discharge Summary Discharge Rx Participant: No New Discharge Prescriptions: New Furosemide [Lasix] 20 mg PO BID@0900,1600 #60 tab Sodium Bicarbonate Tab 650 mg PO TID tab Aspirin 81 mg PO DAILY tab Metoprolol Tartrate [Lopressor] 25 mg PO BID #60 tab Continue traMADol HCL 50 mg PO BID PRN PRN Reason: Pain Albuterol Nebulized [Ventolin Nebulized] 2.5 mg INHALATION RT-QID PRN PRN Reason: Shortness Of Breath Montelukast [Singulair] 10 mg PO HS #30 tab Rivaroxaban [Xarelto] 20 mg PO HS Fluticasone/Umeclidin/Vilanter [Trelegy Ellipta 200-62.5-25] 1 puff INHALATION RT-DAILY PRN PRN Reason: Shortness Of Breath EPINEPHrine [Primatene Mist] 1 puff INHALATION RT-QID PRN PRN Reason: Shortness Of Breath Verapamil HCl [Verapamil ER] 180 mg PO BID Loratadine [Claritin] 10 mg PO HS Discontinued Potassium Chloride ER [K-Dur 10] 10 meq PO DAILY lisinopriL 40 mg PO DAILY Furosemide [Lasix] 20 mg PO DAILY Discharge Medication List Albuterol Nebulized [Ventolin Nebulized] 2.5 mg INHALATION RT-QID PRN 08/27/21 [History] Verapamil HCl [Verapamil ER] 180 mg PO BID 08/27/21 [History] traMADol HCL 50 mg PO BID PRN 08/27/21 [History] Montelukast [Singulair] 10 mg PO HS #30 tab 08/28/21 [Rx] EPINEPHrine [Primatene Mist] 1 puff INHALATION RT-QID PRN 12/21/22 [History] Fluticasone/Umeclidin/Vilanter [Trelegy Ellipta 200-62.5-25] 1 puff INHALATION RT-DAILY PRN 12/21/22 [History] Loratadine [Claritin] 10 mg PO HS 12/21/22 [History] Rivaroxaban [Xarelto] 20 mg PO HS 12/21/22 [History] Aspirin 81 mg PO DAILY tab 12/24/22 [Rx] Furosemide [Lasix] 20 mg PO BID@0900,1600 #60 tab 12/24/22 [Rx] Metoprolol Tartrate [Lopressor] 25 mg PO BID #60 tab 12/24/22 [Rx] Sodium Bicarbonate Tab 650 mg PO TID tab 12/24/22 [Rx] Follow up Appointment(s)/Referral(s): Darren Kennedy MD [STAFF PHYSICIAN] - 01/02/23 3:00 pm Janette Boss DO [Primary Care Provider] - 3 Days Ambulatory/Diagnostic Orders: Basic Metabolic Panel [LAB.AMB] Time Frame: 3 Days, Location: None Selected Activity/Diet/Wound Care/Special Instructions: Hemoglobin A1c 10.3, further diabetic education in clinic with PCP.
--- NOTE | 2022-12-24 19:38 | P.PN ---
Subjective Progress Note Date: 12/24/22 PROGRESS NOTE The patient is a 72-year-old female with known history of paroxysmal atrial fibrillation, hypertension, obesity who has been complaining of progressive dyspnea for the last week associated with the warmer weather. She had no chest discomfort. She came into the emergency room and was noted to be tachycardic, she was regular and could represent SVT, she subsequently converted to sinus mechanism. She had minimal troponin elevation but her baseline renal function are abnormal. She has no prior documented history of myocardial infarction or CHF. She was in the hospital in August 2021 and a diet time had paroxysmal atrial fibrillation. According to the family she was admitted to [facility] is what appears to be SVT and AVNRT although no records are available to me at this time. The patient has occasional peripheral edema. She has no clear PND or orthopnea. Her activity level is limited. She has stopped smoking over 20 years ago. She has been anticoagulated. December 23: The patient is feeling better today, her breathing is better. She denies any chest discomfort or dizziness. She continues to be in sinus mechanism. She has no nausea or vomiting. She had an echocardiogram yesterday that showed a preserved systolic function, it was technically difficult study. She is followe d by the nephrology team. 12/24 Patient is seen today in follow up. She has been ambulating in her room and to the BR. No palpitations, no chest pain. She is on Lasic 20 mg po bid. PHYSICAL EXAMINATION: LUNGS: [Clear to auscultation] HEART: [Regular rate and rhythm, S1, S2. No S3. Systolic ejection murmur] ABDOMEN: [Soft, nontender, no organomegaly] EXTREMETIES: [Trace edema] IMPRESSION: 1. SVT, back in sinus mechanism 2. Symptoms of dyspnea was possible tracheobronchitis 3. CHF with preserved systolic function 4. History of diabetes PLAN: Continue current cardiac medications Patient is cleared for discharge home and may f/u in 1 week Nurse practitioner note has been reviewed, I agree with documented findings and plan of care. Patient was seen and examined. Objective - Vital Signs Vital signs: Vital Signs Temp 98 F 12/24/22 12:00 Pulse 82 12/24/22 12:26 Resp 18 12/24/22 12:00 BP 128/72 12/24/22 12:00 Pulse Ox 94 L 12/24/22 12:00 FiO2 21 12/24/22 09:10 Intake & Output 12/23/22 12/24/22 12/24/22 18:59 06:59 18:59 Intake Total 718 Output Total 1450 100 Balance -732 -100 Weight 134.2 kg 134.2 kg Intake: Oral 718 Output: Urine 1450 100 Other: # Voids 1 # Bowel Movements 0 - Labs CBC & Chem 7: 12/23/22 06:53 12/24/22 08:28 Labs: Abnormal Lab Results - Last 24 Hours (Table) 12/22/22 12/23/22 12/23/22 Range/Units 12:35 16:27 20:17 BUN (7-17) mg/dL Creatinine (0.52-1.04) mg/dL Glucose (74-99) mg/dL POC Glucose (mg/dL) 364 H 321 H (70-110) mg/dL Calcium (8.4-10.2) mg/dL Ur Random Sodium 25 L (40-220) mmol/L 12/24/22 12/24/22 12/24/22 Range/Units 06:19 08:28 11:54 BUN 49 H (7-17) mg/dL Creatinine 1.94 H (0.52-1.04) mg/dL Glucose 174 H (74-99) mg/dL POC Glucose (mg/dL) 188 H 254 H (70-110) mg/dL Calcium 8.0 L (8.4-10.2) mg/dL Ur Random Sodium (40-220) mmol/L
[2022-12-24] MEDS ORDERED: SODIUM BICARBONATE TAB 650 MG TAB PO SCH (21:00)
== END 2022-12-24 15:46 | disposition home or self-care (01) | DRG 291 ==
LOC: EC 17:41 → 3SCARD 20:05
PROVIDERS: ADMIT Family Medicine; ATTEND Family Medicine
DX: I13.0 Hypertensive heart and chronic kidney disease with heart failure and stage 1 through stage 4 chronic kidney disease, or unspecified chronic kidney disease (principal); I50.43 Acute on chronic combined systolic (congestive) and diastolic (congestive) heart failure; N17.0 Acute kidney failure with tubular necrosis; I47.1 Supraventricular tachycardia; N18.4 Chronic kidney disease, stage 4 (severe); Z68.43 Body mass index [BMI] 50.0-59.9, adult; E87.5 Hyperkalemia; E66.9 Obesity, unspecified; E11.22 Type 2 diabetes mellitus with diabetic chronic kidney disease; I48.0 Paroxysmal atrial fibrillation; J44.9 Chronic obstructive pulmonary disease, unspecified; M17.0 Bilateral primary osteoarthritis of knee; Z96.1 Presence of intraocular lens; Z79.01 Long term (current) use of anticoagulants; Z79.4 Long term (current) use of insulin; Z79.84 Long term (current) use of oral hypoglycemic drugs; Z79.899 Other long term (current) drug therapy; Z82.49 Family history of ischemic heart disease and other diseases of the circulatory system; Z82.5 Family history of asthma and other chronic lower respiratory diseases; Z83.3 Family history of diabetes mellitus; Z86.16 Personal history of COVID-19; Z88.5 Allergy status to narcotic agent; Z88.0 Allergy status to penicillin
CPT/HCPCS: 36415; 71046; 76770; 80048; 80053; 81001; 82570; 82728; 82747; 83036; 83540; 83550; 83735; 83880; 83935; 84132; 84300; 84439; 84443; 84481; 84484; 85025; 85027; 85610; 85730; 87205; 93005; 93306; 94640; 94760; 96365; 96366; 96375; 99291

== ENCOUNTER → 2022-12-26 | Outpatient (CLI) | payer MEDICARE ==
[2022-12-26 20:12] LABS: BUN/Creat Ratio 23.07 Ratio (12.00-20.00); Blood Urea Nitrogen 32.3 mg/dL (9.0-27.0); Calcium 8.7 mg/dL (8.7-10.3); Carbon Dioxide 22.9 mmol/L (21.6-31.8); Chloride 103 mmol/L (96-109); Glucose 168 mg/dL (70-110); Magnesium 1.8 mg/dL (1.5-2.4); Potassium 4.6 mmol/L (3.5-5.5); Sodium 139 mmol/L (135-145)
== END | disposition home or self-care (01) ==
LOC: LABWHC1 15:04
PROVIDERS: ATTEND Nurse Practitioner
DX: E61.2 Magnesium deficiency (principal)
CPT/HCPCS: 36415; 80048; 83735

== ENCOUNTER → 2023-02-21 | Outpatient (CLI) | payer MEDICARE ==
--- NOTE | 2023-02-21 15:57 | XR ---
EXAMINATION TYPE: XR foot complete LT DATE OF EXAM: 02/21/2023 CLINICAL HISTORY: pain TECHNIQUE: Frontal, lateral and oblique images of the left foot are obtained. COMPARISON: None. FINDINGS: There is no acute fracture/dislocation evident. The joint spaces appear within normal gomez its. Vascular calcifications seen. Soft tissue ulceration about the great toe. No evidence for osteom yelitis at this time. Changes of pes planus. IMPRESSION: There is no acute fracture or dislocation. ICD 10 NO FRACTURE, INITIAL EVALUATION
== END | disposition home or self-care (01) ==
LOC: RADXRMAIN 14:59
PROVIDERS: ATTEND Nurse Practitioner Family
DX: E11.621 Type 2 diabetes mellitus with foot ulcer (principal); L97.529 Non-pressure chronic ulcer of other part of left foot with unspecified severity

== ENCOUNTER → 2023-03-20 | Outpatient (CLI) | payer MEDICARE ==
--- NOTE | 2023-03-20 14:41 | US ---
EXAMINATION TYPE: US venous doppler duplex LE DATE OF EXAM: 03/20/2023 1:43 PM COMPARISON: NONE CLINICAL INDICATION: Female, 72 years old with history of L97.523 NON-PRESSURE CHRONIC ULCER OF OTHER PART O; Left great toe ulcer. Pain left calf. SIDE PERFORMED: Bilateral TECHNIQUE: The lower extremity deep venous system is examined utilizing real time linear array sonog terri with graded compression, doppler sonography and color-flow sonography. VESSELS IMAGED: Common Femoral Vein Deep Femoral Vein Greater Saphenous Vein * Femoral Vein Popliteal Vein Small Saphenous Vein * Proximal Calf Veins (* superficial vessels) Limited due to body habitus. Right Leg: No evidence of DVT. Left Leg: No evidence of DVT. IMPRESSION: No evidence of DVT.
--- NOTE | 2023-03-20 15:09 | US ---
EXAMINATION TYPE: US arterial LE single level DATE OF EXAM: 03/20/2023 2:24 PM CLINICAL INDICATION: Female, 72 years old with history of L97.523 NON-PRESSURE CHRONIC ULCER OF OTHER PART O; Ulcer left big toe. Limited due to pain and body habitus. History of: Smoker: Previous Hypertension: Yes Diabetic: Yes Hyperlipidemia: No TIA/CVA: ??? Previous Vascular Surgery: No CAD: No MS: No Vascular Ulcers: Wound left Gangrene: Doppler Waveforms: Right: Left: Pulse Volume Recording: Patient cannot tolerate cuffs on left leg due to pain. Pressure Gradients: Right Brachial Pressure: CNO Left Brachial Pressure: CNO Ankle-Brachial Indices: Unable to evaluate due to arm pressures being CNO Toe Brachial Indices: Right: Waveform shown. unable to evaluate due to arm pressures being CNO Left: Unable to evaluate due to bandage. IMPRESSION: Nondiagnostic exam.
== END | disposition home or self-care (01) ==
LOC: RADUSWWP 13:05
PROVIDERS: ATTEND Nurse Practitioner Family
DX: E11.621 Type 2 diabetes mellitus with foot ulcer (principal); L97.523 Non-pressure chronic ulcer of other part of left foot with necrosis of muscle; L97.522 Non-pressure chronic ulcer of other part of left foot with fat layer exposed; E11.43 Type 2 diabetes mellitus with diabetic autonomic (poly)neuropathy
CPT/HCPCS: 93922; 93970

== ENCOUNTER 2023-04-02 14:47 | Day surgery (SDC) | payer MEDICARE ==
[~2023-04-02 14:47] MED LIST: LACTATED RINGERS 1,000 ML IV SCH; LIDOCAINE 1% (10MG/ML) FOR IV START INTRADERMA PRN; ONDANSETRON 4 MG/2 ML VIAL IVP ONE; ceFAZolin 3 GM in SODIUM CHLORIDE 0.9% 100 ML IVPB PRN; fentaNYL (PF) 50 MCG/ML 2 ML AMP IV PRN
[2023-04-02 15:22] LABS: Glucose,Whole Blood 245 mg/dL (70-110)
[2023-04-02] MEDS ORDERED: INSULIN ASPART (NovoLOG) 100 UNIT/ML VIAL SQ ONE (15:37)
[2023-04-02 15:39] LABS: Basophils % (A) 0 %; Eosinophils # (A) 0.1 k/uL (0-0.7); Eosinophils % (A) 1 %; HCT 35.8 % (34.0-46.0); HGB 11.4 gm/dL (11.4-16.0); Hypochromasia Slight; Lymphocytes # (A) 1.1 k/uL (1.0-4.8); Lymphocytes % (A) 8 %; MCH 26.4 pg (25.0-35.0); MCHC 31.9 g/dL (31.0-37.0); Mean Platelet Volume 8.2; Monocytes # (A) 0.4 k/uL (0-1.0); Monocytes % (A) 3 %; Neutrophils # (A) 11.6 k/uL (1.3-7.7); Neutrophils % (A) 87 %; Platelet Count 272 k/uL (150-450); RBC 4.31 m/uL (3.80-5.40); RDW 14.1 % (11.5-15.5); WBC 13.3 k/uL (3.8-10.6)
[2023-04-02 15:40] VITALS: RESP 16
[2023-04-02] MEDS ORDERED: LIDOCAINE 1% INJ 10MG/ML (20 ML MDV) ONE (15:49)
[2023-04-02] MEDS ORDERED: PROPOFOL 10 MG/ML 20 ML VIAL IV ONE (15:49)
[2023-04-02] MEDS ORDERED: fentaNYL (PF) 50 MCG/ML 2 ML AMP ONE (15:49)
[2023-04-02] MEDS ORDERED: MIDAZOLAM 2 MG/2 ML VIAL ONE (15:49)
[2023-04-02 16:07] LABS: African American GFR (CKD) 50 (>60 ml/min/1.73 sqM); Blood Urea Nitrogen 36 mg/dL (7-17); Non-African American GFR(CKD) 43 (>60 ml/min/1.73 sqM)
[2023-04-02 16:11] LABS: Potassium 5.4 mmol/L (3.5-5.1)
[2023-04-02 16:48] LABS: Glucose,Whole Blood 246 mg/dL (70-110)
[2023-04-02 16:56] VITALS: TEMP 96.8
[2023-04-02] MEDS ORDERED: LABETALOL SYRINGE 5 MG/ML (4 ML SYR) IVP ONE ×2 (17:00→17:36)
[2023-04-02] MEDS ORDERED: traMADol 50 MG TAB ONE (18:05)
[2023-04-02] MEDS ORDERED: traMADol 50 MG TAB PO ONE (18:07)
[2023-04-02 18:24] VITALS: BP 141/63; PULSE 79
--- NOTE | 2023-04-11 05:43 | P.OP ---
Date of Procedure: 04/02/23 Preoperative Diagnosis: Left great toe gangrene Postoperative Diagnosis: Left great toe gangrene with deep foot abscess Procedure(s) Performed: Left great toe amputation Anesthesia: JUNEA Surgeon: Robinson Borden Estimated Blood Loss (ml): 20 Pathology: other (deep foot culture and great toe) Condition: stable Disposition: PACU Indications for Procedure: 72 year old female with history of DM, chronic left great toe wound, gangrene presents to the OR for elective amputation. Operative Findings: Ischemia extended down to the deep tissue with tunnelling to the metatarsal joint Description of Procedure: After written and informed consent was obtained and all risks, benefits and complications were described the patient was brought to the operative suite and laid in a supine position. The area of the left foot was prepped and draped in the usual fashion. Timeout was performed in usual fashion and antibiotics were given prior to incision. A racquet incision was then created around the great toe with a 15 blade scalpel and dissection was carried down to the metatarsal joint. Dissection was then carried through the joint and the toe was removed and passed off the field. Deep space was entered with purulent drainage expressed and therefore cultures were obtained. The ischemic deep tissue was then debrided with scissors and the scalpel down to bleeding tissue. The metatarsal bone was dissected back and resected with bone cutters. The area was then irrigated and hemostasis was assured with electrocautery. Once hemostatic and good bleeding edges were noted the wound was closed with vertical mattress 2-0 Nylon suture over a Margaret drain. The area was then cleansed and dressings placed. The patient tolerated the procedure well and was sent to PACU for recovery.
== END 2023-04-02 18:40 | disposition home or self-care (01) ==
LOC: OR 14:47
PROVIDERS: ATTEND Surgery
DX: E11.52 Type 2 diabetes mellitus with diabetic peripheral angiopathy with gangrene (principal); E11.22 Type 2 diabetes mellitus with diabetic chronic kidney disease; N18.9 Chronic kidney disease, unspecified; I48.91 Unspecified atrial fibrillation; J44.9 Chronic obstructive pulmonary disease, unspecified; Z88.5 Allergy status to narcotic agent; Z88.0 Allergy status to penicillin; Z79.01 Long term (current) use of anticoagulants; Z79.4 Long term (current) use of insulin; Z79.899 Other long term (current) drug therapy; Z79.51 Long term (current) use of inhaled steroids
CPT/HCPCS: 28820; 82565; 84132; 84520; 85025; 87070; 87205; 87075; 87077; 87186; J2250; J0690; J2405; J2001; J3010; J2704; J1920

== ENCOUNTER 2023-04-09 19:33 | Inpatient (IN) | payer MEDICARE ==
[2023-04-09] MEDS ORDERED: SODIUM CHLORIDE 0.9% 500 ML 500 ML IV ONE (19:40)
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
[2023-04-09] MEDS ORDERED: LORazepam 2 MG/ML INJ IV STA (20:02)
[2023-04-09 20:13] LABS: HCT 34.6 % (34.0-46.0); HGB 10.8 gm/dL (11.4-16.0); Hypochromasia Marked; MCH 26.9 pg (25.0-35.0); MCHC 31.1 g/dL (31.0-37.0); MCV 86.3 fL (80.0-100.0); Mean Platelet Volume 12.3; RDW 14.9 % (11.5-15.5); WBC 15.2 k/uL (3.8-10.6)
[2023-04-09] MEDS ORDERED: SODIUM CHLORIDE 0.9% 1,000 ML IV ONE (21:06)
[2023-04-09 21:12] LABS: Band Neutrophils % 1 %; Lymphocytes # (M) 0.76 k/uL (1.0-4.8); Metamyelocytes % 2 %; Monocytes # (M) 0.15 k/uL (0-1.0); Myelocytes # (M) 0.15 k/uL (0); Myelocytes % 1 %; Neutrophils % (M) 92 %; Nucleated Red Blood Cells 0 /100 WBC (0-0); Total Cells Counted 200
[2023-04-09 21:13] LABS: Large Platelets Present
[2023-04-09 21:52] LABS: ALT 43 U/L (4-34); AST 138 U/L (14-36); African American GFR (CKD) 18 (>60 ml/min/1.73 sqM); Albumin 3.6 g/dL (3.5-5.0); Alkaline Phosphatase 113 U/L (38-126); Anion Gap 19 mmol/L; Blood Urea Nitrogen 35 mg/dL (7-17); Calcium 8.3 mg/dL (8.4-10.2); Carbon Dioxide 11 mmol/L (22-30); Chloride 103 mmol/L (98-107); Glucose 214 mg/dL (74-99); Non-African American GFR(CKD) 15 (>60 ml/min/1.73 sqM); Sodium 133 mmol/L (137-145); Total Bilirubin 0.7 mg/dL (0.2-1.3); Total Protein 7.2 g/dL (6.3-8.2)
[2023-04-09 21:59] LABS: Potassium 7.5 mmol/L (3.5-5.1)
[2023-04-09] MEDS ORDERED: SODIUM BICARB 8.4% 50 ML SYR (1 MEQ/ML) IV STA (22:01)
[2023-04-09] MEDS ORDERED: DEXTROSE 50% SYRINGE 50 ML IVP STA (22:01)
[2023-04-09] MEDS ORDERED: INSULIN REGULAR 100 UNIT/ML VIAL (IV) SQ STA (22:01)
[2023-04-09] MEDS ORDERED: CALCIUM GLUCONATE IN NACL 1 GM in SALINE 1 100ML.BAG IVPB ONE (22:03)
[2023-04-09] MEDS: ALBUTEROL NEBULIZED 2.5 MG/3 ML INHALATION PRN (22:45)
[2023-04-09] MEDS ORDERED: ALBUTEROL NEBULIZED 2.5 MG/3 ML INHALATION STA (22:49)
[2023-04-10 00:20] LABS: VBG PH 7.22 (7.31-7.41)
--- NOTE | 2023-04-10 00:35 | XR ---
EXAM: XR Chest, 2 Views CLINICAL HISTORY: ITS.REASON XR Reason: dyspnea TECHNIQUE: Frontal and lateral views of the chest. COMPARISON: No relevant prior studies available. FINDINGS: Lungs: Mild pulmonary vascular congestion. Pleural space: Unremarkable. No pneumothorax. Heart: Severe cardiomegaly. Mediastinum: Unremarkable. Bones/joints: Unremarkable. IMPRESSION: 1. Severe cardiomegaly. 2. Mild pulmonary vascular congestion.
[2023-04-10 00:42] LABS: Glucose,Whole Blood 277 mg/dL (70-110)
[2023-04-10] MEDS ORDERED: SODIUM BICARB 8.4% 50 ML SYR (1 MEQ/ML) ONE (00:45)
[2023-04-10] MEDS ORDERED: SODIUM BICARB 8.4% 50 ML SYR (1 MEQ/ML) IV STA (00:46)
[2023-04-10] MEDS: traMADol 50 MG TAB PO SCH ×4 (01:23→23:15)
[2023-04-10] MEDS: FUROSEMIDE 10 MG/ML 2 ML VIAL IV SCH ×2 (01:23→08:10)
[2023-04-10] MEDS ORDERED: SODIUM ZIRCONIUM CYCLOSILICATE 10 GM PACKET PO ONE (02:08)
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
[2023-04-10 03:12] LABS: Potassium 6.6 mmol/L (3.5-5.1)
[2023-04-10] MEDS ORDERED: INSULIN REGULAR 100 UNIT/ML VIAL (IV) IV ONE (03:14)
[2023-04-10] MEDS ORDERED: DEXTROSE 50% SYRINGE 50 ML IVP STA (03:14)
[2023-04-10] MEDS ORDERED: CALCIUM GLUCONATE IN NACL 1 GM in SALINE 1 100ML.BAG IVPB ONE (03:14)
[2023-04-10] MEDS: DAPTOmycin 350 MG in SODIUM CHLORIDE 0.9% 50 ML IVPB SCH (03:31)
[2023-04-10 03:34] LABS: African American GFR (CKD) 18 (>60 ml/min/1.73 sqM); Anion Gap 13 mmol/L; Blood Urea Nitrogen 40 mg/dL (7-17); Calcium 8.6 mg/dL (8.4-10.2); Carbon Dioxide 19 mmol/L (22-30); Chloride 105 mmol/L (98-107); Glucose 250 mg/dL (74-99); Non-African American GFR(CKD) 15 (>60 ml/min/1.73 sqM); Sodium 137 mmol/L (137-145)
[2023-04-10] MEDS: DEXTROSE 5% IN WATER 1,000 ML with SODIUM BICARB (1 MEQ/ML) 150 ML IV SCH ×2 (04:28→17:08)
[2023-04-10 06:14] LABS: Basophils % (A) 0 %; Eosinophils % (A) 0 %; HCT 32.6 % (34.0-46.0); HGB 10.1 gm/dL (11.4-16.0); Hypochromasia Moderate; Lymphocytes # (A) 1.2 k/uL (1.0-4.8); Lymphocytes % (A) 8 %; MCH 26.1 pg (25.0-35.0); MCHC 31.1 g/dL (31.0-37.0); MCV 83.9 fL (80.0-100.0); Mean Platelet Volume 8.5; Monocytes # (A) 0.5 k/uL (0-1.0); Monocytes % (A) 3 %; Neutrophils # (A) 12.9 k/uL (1.3-7.7); Neutrophils % (A) 88 %; Platelet Count 339 k/uL (150-450); RBC 3.89 m/uL (3.80-5.40); RDW 15.3 % (11.5-15.5); WBC 14.8 k/uL (3.8-10.6)
[2023-04-10 06:29] LABS: ALT 80 U/L (4-34); AST 228 U/L (14-36); African American GFR (CKD) 17 (>60 ml/min/1.73 sqM); Albumin 3.5 g/dL (3.5-5.0); Alkaline Phosphatase 109 U/L (38-126); Anion Gap 15 mmol/L; Blood Urea Nitrogen 36 mg/dL (7-17); Calcium 8.6 mg/dL (8.4-10.2); Carbon Dioxide 20 mmol/L (22-30); Chloride 101 mmol/L (98-107); Glucose 173 mg/dL (74-99); Non-African American GFR(CKD) 15 (>60 ml/min/1.73 sqM); Potassium 5.4 mmol/L (3.5-5.1); Sodium 136 mmol/L (137-145); Total Bilirubin 0.5 mg/dL (0.2-1.3); Total Protein 7.2 g/dL (6.3-8.2)
[2023-04-10 06:55] LABS: Glucose,Whole Blood 175 mg/dL (70-110)
[2023-04-10] MEDS: ALBUTEROL NEBULIZED 2.5 MG/3 ML INHALATION PRN (08:01)
[2023-04-10] MEDS: PANTOPRAZOLE 40 MG/10 ML VIAL IVP SCH (08:10)
[2023-04-10] MEDS: INSULN ASP PRT/INSULIN ASPART 100 UNIT/ML 10 ML VIAL SQ SCH ×2 (08:12→20:41)
[2023-04-10] MEDS ORDERED: FUROSEMIDE 20 MG TAB PO SCH (09:00)
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
[2023-04-10 11:08] LABS: Glucose,Whole Blood 139 mg/dL (70-110)
[2023-04-10] MEDS: CEFEPIME 1 GM in SODIUM CHLORIDE 0.9% 50 ML IVPB SCH ×2 (13:41→22:10)
[2023-04-10] MEDS: COLLAGENASE 250 UNIT/GM OINTMENT 30 GM TUBE TOPICAL SCH (13:41)
[2023-04-10] MEDS: metroNIDAZOLE 500 MG TAB PO SCH ×2 (15:49→20:27)
[2023-04-10] MEDS ORDERED: CEFEPIME 2 GM in SODIUM CHLORIDE 0.9% 100 ML IVPB SCH (16:00)
[2023-04-10 16:19] LABS: African American GFR (CKD) 20 (>60 ml/min/1.73 sqM); Anion Gap 12 mmol/L; Blood Urea Nitrogen 41 mg/dL (7-17); Calcium 8.2 mg/dL (8.4-10.2); Carbon Dioxide 24 mmol/L (22-30); Chloride 101 mmol/L (98-107); Glucose 107 mg/dL (74-99); Non-African American GFR(CKD) 17 (>60 ml/min/1.73 sqM); Potassium 4.9 mmol/L (3.5-5.1); Sodium 137 mmol/L (137-145)
[2023-04-10 16:24] LABS: Glucose,Whole Blood 108 mg/dL (70-110)
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
[2023-04-10] MEDS: RIVAROXABAN 20 MG TAB PO SCH (20:26)
[2023-04-10] MEDS: ACETAMINOPHEN TAB 325 MG TAB PO PRN (20:27)
[2023-04-10] MEDS: VERAPAMIL SR 180 MG TABLET.ER PO SCH (20:27)
[2023-04-10] MEDS: METOPROLOL TARTRATE 25 MG TAB PO SCH (20:27)
[2023-04-10] MEDS: SODIUM CHLORIDE 0.9% 1,000 ML IV SCH (20:28)
[2023-04-10 20:36] LABS: Glucose,Whole Blood 130 mg/dL (70-110)
[2023-04-10] MEDS ORDERED: BENZONATATE 100 MG CAP PO PRN (20:42)
[2023-04-10] MEDS ORDERED: VERAPAMIL 80 MG TAB PO SCH (21:00)
[2023-04-10] MEDS ORDERED: VERAPAMIL 40 MG TAB PO SCH (21:00)
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
[2023-04-11 06:03] LABS: Glucose,Whole Blood 67 mg/dL (70-110)
[2023-04-11 06:36] LABS: Glucose,Whole Blood 99 mg/dL (70-110)
[2023-04-11 06:36] LABS: Glucose,Whole Blood 65 mg/dL (70-110)
[2023-04-11 07:40] LABS: Basophils % (A) 0 %; Eosinophils # (A) 0.3 k/uL (0-0.7); Eosinophils % (A) 2 %; HCT 31.5 % (34.0-46.0); HGB 9.8 gm/dL (11.4-16.0); Hypochromasia Moderate; Lymphocytes # (A) 1.7 k/uL (1.0-4.8); Lymphocytes % (A) 14 %; MCH 26.2 pg (25.0-35.0); MCHC 31.2 g/dL (31.0-37.0); MCV 84.1 fL (80.0-100.0); Mean Platelet Volume 8.1; Monocytes # (A) 0.8 k/uL (0-1.0); Monocytes % (A) 6 %; Neutrophils # (A) 9.9 k/uL (1.3-7.7); Neutrophils % (A) 77 %; Platelet Count 308 k/uL (150-450); RBC 3.75 m/uL (3.80-5.40); RDW 15.4 % (11.5-15.5); WBC 12.8 k/uL (3.8-10.6)
--- NOTE | 2023-04-11 07:57 | XR ---
EXAMINATION TYPE: XR chest 1V DATE OF EXAM: 04/11/2023 COMPARISON: 04/09/2023 INDICATION: Short of breath TECHNIQUE: Single frontal view of the chest is obtained. FINDINGS: The heart size is enlarged. This is stable from comparison. The pulmonary vasculature is normal. The lungs are clear. IMPRESSION: 1. Cardiomegaly
[2023-04-11 08:07] LABS: African American GFR (CKD) 18 (>60 ml/min/1.73 sqM); Anion Gap 10 mmol/L; Blood Urea Nitrogen 41 mg/dL (7-17); Calcium 8.1 mg/dL (8.4-10.2); Carbon Dioxide 25 mmol/L (22-30); Chloride 102 mmol/L (98-107); Glucose 99 mg/dL (74-99); Non-African American GFR(CKD) 16 (>60 ml/min/1.73 sqM); Potassium 4.9 mmol/L (3.5-5.1); Sodium 137 mmol/L (137-145)
[2023-04-11] MEDS: COLLAGENASE 250 UNIT/GM OINTMENT 30 GM TUBE TOPICAL SCH (08:59)
[2023-04-11] MEDS: PANTOPRAZOLE 40 MG/10 ML VIAL IVP SCH (08:59)
[2023-04-11] MEDS: INSULN ASP PRT/INSULIN ASPART 100 UNIT/ML 10 ML VIAL SQ SCH ×2 (08:59→21:08)
[2023-04-11] MEDS: metroNIDAZOLE 500 MG TAB PO SCH ×3 (09:00→21:07)
[2023-04-11] MEDS: VERAPAMIL SR 180 MG TABLET.ER PO SCH ×2 (09:00→21:07)
[2023-04-11] MEDS: METOPROLOL TARTRATE 25 MG TAB PO SCH ×2 (09:00→21:07)
[2023-04-11] MEDS: traMADol 50 MG TAB PO SCH ×3 (09:00→23:51)
[2023-04-11] MEDS: CEFEPIME 1 GM in SODIUM CHLORIDE 0.9% 50 ML IVPB SCH ×2 (11:05→21:01)
[2023-04-11] MEDS: ACETAMINOPHEN TAB 325 MG TAB PO PRN ×2 (11:13→21:07)
--- NOTE | 2023-04-11 11:23 | P.PN ---
Subjective Patient is seen in follow-up for acute kidney injury on chronic kidney disease. Renal function stable. Potassium level normal. Has been voiding. Oral intake fair. No vomiting or diarrhea. Vital signs are stable. General: No acute distress. HEENT: Head exam is unremarkable. On nasal cannula. LUNGS: No audible rhonchi or wheezes. HEART: Rate and Rhythm are regular. ABDOMEN: Nontender, obese. EXTREMITITES: No edema. Objective - Vital Signs Vital signs: Vital Signs Temp 97.9 F 04/11/23 11:13 Pulse 55 L 04/11/23 11:13 Resp 14 04/11/23 11:13 BP 150/55 04/11/23 11:13 Pulse Ox 94 L 04/11/23 11:13 FiO2 Intake & Output 04/10/23 04/11/23 04/11/23 18:59 06:59 18:59 Intake Total 375 10 Output Total 500 200 Balance -125 -190 Weight 59.2 kg 130 kg Intake: IV 375 10 Dextrose 5% in Water 1, 375 000 ml @ 75 mls/hr IV . [id number] ANTHONY with Sodium Bicarb (1 Meq/ml) 150 ml Rx#:[id number] Invasive Line 3 10 Oral 0 Output: Urine 500 200 Other: Voiding Method Bedside Commode # Voids 1 - Labs CBC & Chem 7: 04/11/23 07:23 04/11/23 07:23 Labs: Abnormal Lab Results - Last 24 Hours (Table) 04/10/23 04/10/23 04/10/23 Range/Units 05:26 15:52 20:35 WBC (3.8-10.6) k/uL RBC (3.80-5.40) m/uL Hgb (11.4-16.0) gm/dL Hct (34.0-46.0) % Neutrophils # (1.3-7.7) k/uL BUN 41 H (7-17) mg/dL Creatinine 2.71 H (0.52-1.04) mg/dL Glucose 107 H (74-99) mg/dL POC Glucose (mg/dL) 130 H (70-110) mg/dL Hemoglobin A1c 9.4 H (<=6.0) % Calcium 8.2 L (8.4-10.2) mg/dL 04/11/23 04/11/23 04/11/23 Range/Units 06:02 06:17 07:23 WBC (3.8-10.6) k/uL RBC (3.80-5.40) m/uL Hgb (11.4-16.0) gm/dL Hct (34.0-46.0) % Neutrophils # (1.3-7.7) k/uL BUN 41 H (7-17) mg/dL Creatinine 2.88 H (0.52-1.04) mg/dL Glucose (74-99) mg/dL POC Glucose (mg/dL) 67 L 65 L (70-110) mg/dL Hemoglobin A1c (<=6.0) % Calcium 8.1 L (8.4-10.2) mg/dL 04/11/23 Range/Units 07:23 WBC 12.8 H (3.8-10.6) k/uL RBC 3.75 L (3.80-5.40) m/uL Hgb 9.8 L (11.4-16.0) gm/dL Hct 31.5 L (34.0-46.0) % Neutrophils # 9.9 H (1.3-7.7) k/uL BUN (7-17) mg/dL Creatinine (0.52-1.04) mg/dL Glucose (74-99) mg/dL POC Glucose (mg/dL) (70-110) mg/dL Hemoglobin A1c (<=6.0) % Calcium (8.4-10.2) mg/dL Microbiology - Last 24 Hours (Table) 04/10/23 12:00 Gram Stain - Preliminary Toe - Left First Assessment and Plan Plan: Assessment: 1. Acute kidney injury secondary to hemodynamic ATN. Also component of Bactrim which will impair creatinine secretion. Creatinine stable at 2.88. Kidney ultrasound from December 2022 showed no evidence of hydronephrosis. 2. Chronic kidney disease stage IIIb. Suspect underlying diabetic kidney disease and nephrosclerosis. Baseline creatinine near 1.4 from December 2021 and 2022. 3. Hyperkalemia secondary to acute kidney injury, acidosis and use of Bactrim. Improved with medical management. 4. Metabolic acidosis secondary to acute kidney injury. Status post bicarb drip. Improved. 5. Recent left toe amputation. 6. Diabetes mellitus. 7. History of A. fib. 8. Symptomatic bradycardia. Improved. Patient took additional dose of metoprolol and verapamil by accident. Cardiology following. Plan: Maintain normal saline. Continue to hold diuretics. Check UA. Not receiving Bactrim. Avoid nephrotoxins. Continue to monitor renal function and urine output. Add hydralazine. Hold for systolic blood pressure less than 120. Repeat labs in the morning.
[2023-04-11 11:48] LABS: Glucose,Whole Blood 158 mg/dL (70-110)
--- NOTE | 2023-04-11 12:38 | P.PN ---
Subjective Progress Note Date: 04/11/23 Principal diagnosis: Left big toe amputation site wound dehiscence and cellulitis Patient is a 72-year-old female with a past medical history significant for diabetes mellitus hypertension atrial fibrillation heart failure patient recently did have a left big toe amputation done on 04/02/[address] Chapman and the patient was subsequently discharged home cultures obtained at the time of surgery did grew staph epi and Streptococcus agalactiae, patient presented to hospital with overdosing on her blood pressure medication with hypertension and was noticed at the bases of the left big toe amputation site wound On today's evaluation that is 04/11/2023, the patient denies any fever or any chills , the patient is breathing comfortably on room air 2 L nasal cannula supplemental oxygen, the patient denies any chest pain or cough and no sputum production, patient denies abdominal pain and no nausea/vomiting or diarrhea , has been complaining of some pain to the left big toe amputation site WBC 12.8 , Cr 2.88, cultures pending Objective - Vital Signs Vital signs: Vital Signs Temp 97.9 F 04/11/23 11:13 Pulse 55 L 04/11/23 11:13 Resp 14 04/11/23 11:13 BP 150/55 04/11/23 11:13 Pulse Ox 94 L 04/11/23 11:13 FiO2 Intake & Output 04/10/23 04/11/23 04/11/23 18:59 06:59 18:59 Intake Total 338 94 8853 Output Total 500 200 Balance -125 -190 1130 Weight 59.2 kg 130 kg Intake: IV 375 10 Dextrose 5% in Water 1, 375 000 ml @ 75 mls/hr IV . [id number] ANTHONY with Sodium Bicarb (1 Meq/ml) 150 ml Rx#:[id number] Invasive Line 3 10 Intake, IV Titration 650 Amount Cefepime 1 gm In Sodium 50 Chloride 0.9% 50 ml @ 12. 5 mls/hr IVPB Q12HR ANTHONY Rx#:[id number] Sodium Chloride 0.9% 1, 600 000 ml @ 75 mls/hr IV . [id number] ANTHONY Rx#:[id number] Oral 0 480 Output: Urine 500 200 Other: Voiding Method Bedside Commode Bedside Commode # Voids 1 - Exam GENERAL DESCRIPTION: An elderly female lying in bed in no distress RESPIRATORY SYSTEM: Unlabored breathing , clear to auscultation anteriorly HEART: S1 S2 regular rate and rhythm , ABDOMEN: Soft , no tenderness EXTREMITIES: Left big toe wound is stressed - Labs CBC & Chem 7: 04/11/23 07:23 04/11/23 07:23 Labs: Abnormal Lab Results - Last 24 Hours (Table) 04/10/23 04/10/23 04/10/23 Range/Units 05:26 15:52 20:35 WBC (3.8-10.6) k/uL RBC (3.80-5.40) m/uL Hgb (11.4-16.0) gm/dL Hct (34.0-46.0) % Neutrophils # (1.3-7.7) k/uL BUN 41 H (7-17) mg/dL Creatinine 2.71 H (0.52-1.04) mg/dL Glucose 107 H (74-99) mg/dL POC Glucose (mg/dL) 130 H (70-110) mg/dL Hemoglobin A1c 9.4 H (<=6.0) % Calcium 8.2 L (8.4-10.2) mg/dL 04/11/23 04/11/23 04/11/23 Range/Units 06:02 06:17 07:23 WBC (3.8-10.6) k/uL RBC (3.80-5.40) m/uL Hgb (11.4-16.0) gm/dL Hct (34.0-46.0) % Neutrophils # (1.3-7.7) k/uL BUN 41 H (7-17) mg/dL Creatinine 2.88 H (0.52-1.04) mg/dL Glucose (74-99) mg/dL POC Glucose (mg/dL) 67 L 65 L (70-110) mg/dL Hemoglobin A1c (<=6.0) % Calcium 8.1 L (8.4-10.2) mg/dL 04/11/23 04/11/23 Range/Units 07:23 11:42 WBC 12.8 H (3.8-10.6) k/uL RBC 3.75 L (3.80-5.40) m/uL Hgb 9.8 L (11.4-16.0) gm/dL Hct 31.5 L (34.0-46.0) % Neutrophils # 9.9 H (1.3-7.7) k/uL BUN (7-17) mg/dL Creatinine (0.52-1.04) mg/dL Glucose (74-99) mg/dL POC Glucose (mg/dL) 158 H (70-110) mg/dL Hemoglobin A1c (<=6.0) % Calcium (8.4-10.2) mg/dL Microbiology - Last 24 Hours (Table) 04/10/23 12:00 Gram Stain - Preliminary Toe - Left First Assessment and Plan (1) Amputation of left great toe Current Visit: Yes Status: Acute Code(s): S98.112A - COMPLETE TRAUMATIC AMPUTATION OF LEFT GREAT TOE, INIT ENCNTR SNOMED Code(s): 248329834 (2) Non-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 Current Visit: Yes Status: Acute Code(s): L97.524 - NON-PRS CHRONIC ULCER OTH PRT LEFT FOOT W NECROSIS OF BONE SNOMED Code(s): 23139728429706083 (3) Cellulitis of left foot Current Visit: Yes Status: Acute Code(s): L03.116 - CELLULITIS OF LEFT LOWER LIMB SNOMED Code(s): 37323462538212918 Plan: 1patient with a left diabetic foot infection in this patient with recent left big toe amputation now with evidence of wound dehiscence and some cellulitis we will need to cover for the polymicrobial espinoza usually associated with this infection with a recent culture positive for streptococci collected and staph epi 2-patient with renal insufficiency high risk of nephrotoxicity 3-penicillin allergy that will limit number of antibiotics safe to use 4-deep local culture has been obtained both aerobic and anaerobic to guide further antibiotic therapy 5-patient to continue with the daptomycin ,cefepime and Flagyl while waiting for the culture to finalize Dictation was produced using [employer] software. please excuse any grammatical, word or spelling errors. Time with Patient: Less than 30
[2023-04-11 13:49] VITALS: BMI 46.2
--- NOTE | 2023-04-11 13:50 | P.PN ---
Subjective Progress Note Date: 04/11/23 H&P Date: 04/10/23 Chief Complaint: Accidental overdose This is a 81-year-old female with past medical history significant for paroxysmal atrial fibrillation, SVT, CHF ,hypertension, diabetes mellitus, COPD/asthma, chronic renal failure stage III, recent left toe amputation 04/02/23, brought into the ER yesterday after patient asked that we took extra doses of her morning meds, metoprolol and verapamil. Developed dizziness, lightheadedness, shortness of breath and nausea. Patient presented in acute renal failure on admission, bicarbonate 11, BUN of 35, creatinine 2.97, had been on Bactrim post surgery.Placed on bicarb drip. Blood cultures reporting strep agalactiae and staph epidermidis. On admission bradycardic, heart rates in the 20s patient was severely hyperkalemic with a potassium of 7.5, received hyperkalemic cocktail in the ER with most recent potassium level down to 5.4. Blood sugars stable. Maintained on IV fluid hydration , eventually required nonrebreather for a few hours which has been weaned to 2 L nasal cannula. Chest x-ray reported severe cardiomegaly, mild pulmonary vascular congestion. Blood pressures remained stable without pressor support. EKG reported junctional bradycardia. Denies chest pain, palpitations. In regards to recent toe amputation, reports drain came out 2-3 days ago, follows with [facility] wound care center, which has been consulted. This morning renal function improved. 04/11/2023 transferred out of ICU currently on stepdown. Significant clinical improvement. Receiving IV fluid hydration. Maintained on IV antibiotics of daptomycin, cefepime Afebrile, WBC 12.8. Preliminary blood cultures no growth after 24 hours 2, Gram stain reporting gm Positive cocci, aerobic wound culture pending culture Hemoglobin 9.8, platelets 308. Potassium 4.9. Renal function stable. Bicarb 25 BUN 41, creatinine 2.88. Blood sugars controlled this morning. Denies chest pain, palpitations or shortness of breath. Maintaining O2 sats in the 90s on 2 L nasal cannula. Objective - Vital Signs Vital signs: Vital Signs Temp 97.9 F 04/11/23 11:13 Pulse 55 L 04/11/23 12:58 Resp 14 04/11/23 12:58 BP 150/55 04/11/23 11:13 Pulse Ox 94 L 04/11/23 11:13 FiO2 Intake & Output 04/10/23 04/11/23 04/11/23 18:59 06:59 18:59 Intake Total 361 27 2347 Output Total 500 200 Balance -125 -190 1130 Weight 59.2 kg 130 kg Intake: IV 375 10 Dextrose 5% in Water 1, 375 000 ml @ 75 mls/hr IV . [id number] ANTHONY with Sodium Bicarb (1 Meq/ml) 150 ml Rx#:[id number] Invasive Line 3 10 Intake, IV Titration 650 Amount Cefepime 1 gm In Sodium 50 Chloride 0.9% 50 ml @ 12. 5 mls/hr IVPB Q12HR ANTHONY Rx#:[id number] Sodium Chloride 0.9% 1, 600 000 ml @ 75 mls/hr IV . [id number] ANTHONY Rx#:[id number] Oral 0 480 Output: Urine 500 200 Other: Voiding Method Bedside Commode Bedside Commode # Voids 1 - Exam PHYSICAL EXAM: VITAL SIGNS: [As above] GENERAL: Alert and oriented 3, Sitting up at bedside, no acute distress HEENT: Normocephalic, Conjunctivae normal. eyes normal. NECK: Supple, No JVD. CARDIOVASCULAR: S1, S2 regular. Systolic murmur RESPIRATION: Unlabored, equal air entry , clear to auscultation, bilateral bases diminished. ABDOMEN: Soft, nontender . No guarding. no masses palpable. +BS LEGS: No edema. no swelling NERVOUS SYSTEM: Cranial N 2-12 grossly normal. No focal deficits. Strength and sensation grossly intact. Skin: Warm and dry, left great toe dressing clean dry and intact,tender - Labs CBC & Chem 7: 04/11/23 07:23 04/11/23 07:23 Labs: Abnormal Lab Results - Last 24 Hours (Table) 04/10/23 04/10/23 04/10/23 Range/Units 05:26 15:52 20:35 WBC (3.8-10.6) k/uL RBC (3.80-5.40) m/uL Hgb (11.4-16.0) gm/dL Hct (34.0-46.0) % Neutrophils # (1.3-7.7) k/uL BUN 41 H (7-17) mg/dL Creatinine 2.71 H (0.52-1.04) mg/dL Glucose 107 H (74-99) mg/dL POC Glucose (mg/dL) 130 H (70-110) mg/dL Hemoglobin A1c 9.4 H (<=6.0) % Calcium 8.2 L (8.4-10.2) mg/dL 04/11/23 04/11/23 04/11/23 Range/Units 06:02 06:17 07:23 WBC (3.8-10.6) k/uL RBC (3.80-5.40) m/uL Hgb (11.4-16.0) gm/dL Hct (34.0-46.0) % Neutrophils # (1.3-7.7) k/uL BUN 41 H (7-17) mg/dL Creatinine 2.88 H (0.52-1.04) mg/dL Glucose (74-99) mg/dL POC Glucose (mg/dL) 67 L 65 L (70-110) mg/dL Hemoglobin A1c (<=6.0) % Calcium 8.1 L (8.4-10.2) mg/dL 04/11/23 04/11/23 Range/Units 07:23 11:42 WBC 12.8 H (3.8-10.6) k/uL RBC 3.75 L (3.80-5.40) m/uL Hgb 9.8 L (11.4-16.0) gm/dL Hct 31.5 L (34.0-46.0) % Neutrophils # 9.9 H (1.3-7.7) k/uL BUN (7-17) mg/dL Creatinine (0.52-1.04) mg/dL Glucose (74-99) mg/dL POC Glucose (mg/dL) 158 H (70-110) mg/dL Hemoglobin A1c (<=6.0) % Calcium (8.4-10.2) mg/dL Microbiology - Last 24 Hours (Table) 04/10/23 05:50 Blood Culture - Preliminary Blood 04/10/23 05:45 Blood Culture - Preliminary Blood 04/10/23 12:00 Gram Stain - Preliminary Toe - Left First Assessment and Plan Assessment: Accidental overdose of metoprolol, verapamil with subsequent symptomatic bradycardia and hypotension Acute hypoxic respiratory failure secondary to the above Acute on Chronic renal failure stage IIIB, baseline creatinine 1.2-1.4 secondary to diabetic kidney disease Critical hyperkalemia, resolved Metabolic acidosis, maintained on bicarb drip Anemia of chronic disease History of left foot gangrene,recent amputation of left great toe, 04/02/2023, resulting with nonhealing ulceration, diabetic foot ulcer, follows with [facility]. Leukocytosis Osteomyelitis Chronic diastolic CHF History of SVT History of paroxysmal atrial fibrillation, anticoagulated on Xarelto Diabetes mellitusII, hemoglobin A1c 10.3 on 12/22/2022, repeat A1C ordered Hypertension Plan: Continue on current medication regime ,monitoring and symptomatic treatment. Maintain IV antibiotics as per infectious disease. Avoid nephrotoxins. Gentle IV hydration, holding diuretics. Close monitoring of renal function with repeat labs ordered for a.m. Continue weaning O2. PT/OT consulted. Discharge planning in progress for tomorrow. The impression and plan of care has been dictated as directed. : I performed a history and examination of this patient, discussed the same with the dictator. I agree with the dictator's note ,documented as a scribe. Any additional findings or plans will be noted.
--- NOTE | 2023-04-11 14:17 | P.PN ---
Subjective Progress Note Date: 04/11/23 Principal diagnosis: Hypotension, bradycardia and hyperkalemia, accidental overdose of metoprolol and verapamil I am seeing this patient in new consultation today 04/10/2023 in the intensive care unit after she accidentally took an extra dose of her metoprolol and verapamil while at home. She then became lightheaded and dizzy and was brought into the emergency room by her daughter. Patient is a 72-year-old female with past medical history significant for atrial fibrillation, congestive heart failure, hypertension, diabetes mellitus, among other things. Patient recently had a left great toe amputation for gangrene April 02. Blood cultures were positive for strep agalactiae and staph epidermidis. Patient states she's been on Bactrim since. Apparently, yesterday the patient may have accidentally received one extra dose of her verapamil and metoprolol. She then became lightheaded and dizzy while at home. Patient's daughter did bring her to the emergency room. While in the emergency room, the patient was found to be severely hyperkalemic with a potassium of 7.5. She is a component of acute on chronic kidney disease. She did have an episode of symptomatic bradycardia, I'm told that her heart rate dropped down to around 20 bpm. Patient reportedly neve r lost a pulse. Patient was treated with 1 amp sodium bicarb, 10 units regular insulin, amp D50W, 1 g calcium gluconate, albuterol neb. Repeat potassium is pending. BMP shows a sodium 133, potassium 7.5, chloride 103, serum bicarb 11, BUN 35, creatinine 2.97, glucose 214. CBC on arrival shows leukocytosis with a WBC count is 15.2, hemoglobin 10.8, hematocrit 34.6, platelets unable to be measured. Patient is currently sitting up in bed, on 4 L per minute nasal cannula, in no acute distress. She is alert and oriented. Able to answer most of my questions. She denies any chest pain, heart palpitations, or syncope. Denies any fevers, chills, cough. Denies any urinary complaints. Denies nausea, vomiting, diarrhea. She does report some left foot pain from a previous left great toe amputation site. EKG appears to show junctional bradycardia with a heart rate of 53 bpm. Blood pressure is normotensive. Not receiving any vasopressors. Normal saline is infusing at 50 ML's per hour. Chest x-ray showed mild pulmonary vascular congestion and severe cardiomegaly. Patient's condition is currently critical, and being monitored in the intensive care unit. Patient was seen and examined today on , patient is doing well, relatively asymptomatic, she is now on 3 S., no major issues over the last 24 hours. On 2 L nasal cannula, O2 saturation ranging between 94 up to 98% heart rate is in the 50s, blood pressure is 150/55. WBC count is 12.8 hemoglobin 9.80 left was normal BUN is 41 and creatinine 2.88, it was 3.0 to yesterday. And 2.97 on admission. This is being addressed by related to ATN related to hypotension. Patient was seen by infectious disease for her toe infection/left foot cellulitis, and recent appendectomy dictation of left great toe. Patient was kept on daptomycin and cefepime and Flagyl until cultures are available. Objective - Vital Signs Vital signs: Vital Signs Temp 97.9 F 04/11/23 11:13 Pulse 55 L 04/11/23 12:58 Resp 14 04/11/23 12:58 BP 150/55 04/11/23 11:13 Pulse Ox 94 L 04/11/23 11:13 FiO2 Intake & Output 04/10/23 04/11/23 04/11/23 18:59 06:59 18:59 Intake Total 944 58 4034 Output Total 500 200 Balance -125 -190 1130 Weight 59.2 kg 130 kg 130 kg Intake: IV 375 10 Dextrose 5% in Water 1, 375 000 ml @ 75 mls/hr IV . [id number] ANTHONY with Sodium Bicarb (1 Meq/ml) 150 ml Rx#:[id number] Invasive Line 3 10 Intake, IV Titration 650 Amount Cefepime 1 gm In Sodium 50 Chloride 0.9% 50 ml @ 12. 5 mls/hr IVPB Q12HR ANTHONY Rx#:[id number] Sodium Chloride 0.9% 1, 600 000 ml @ 75 mls/hr IV . [id number] ANTHONY Rx#:[id number] Oral 0 480 Output: Urine 500 200 Other: Voiding Method Bedside Commode Bedside Commode # Voids 1 - Exam Physical Exam: Revealed a 72-year-old female in no distress, pleasant, Head: Atraumatic, normocephalic. HEENT:[Neck is supple.] [No neck masses.] [No thyromegaly.] [No JVD.] Chest: [Clear throughout, no crackles, no rhonchi, no wheezes.] Cardiac Exam: [Normal S1 and S2, no S3 gallop, no murmur.] Abdomen: [Obese, Soft, nontender, no megaly, no rebound, no guarding, normal bowel sounds.] Extremities: [No clubbing, no edema, no cyanosis.] Left great toe amputation site appears to have necrosis and serosanguineous drainage noted./Evidence of cellulitis Neurological Exam: [No focal neurologic deficit.] Alert oriented 3 Psychiatric: Normal mood affect and normal status examination. Skin: As noted above under extremities with her site of amputation showing cellulitis. - Labs CBC & Chem 7: 04/11/23 07:23 04/11/23 07:23 Labs: Abnormal Lab Results - Last 24 Hours (Table) 04/10/23 04/10/23 04/10/23 Range/Units 05:26 15:52 20:35 WBC (3.8-10.6) k/uL RBC (3.80-5.40) m/uL Hgb (11.4-16.0) gm/dL Hct (34.0-46.0) % Neutrophils # (1.3-7.7) k/uL BUN 41 H (7-17) mg/dL Creatinine 2.71 H (0.52-1.04) mg/dL Glucose 107 H (74-99) mg/dL POC Glucose (mg/dL) 130 H (70-110) mg/dL Hemoglobin A1c 9.4 H (<=6.0) % Calcium 8.2 L (8.4-10.2) mg/dL 04/11/23 04/11/23 04/11/23 Range/Units 06:02 06:17 07:23 WBC (3.8-10.6) k/uL RBC (3.80-5.40) m/uL Hgb (11.4-16.0) gm/dL Hct (34.0-46.0) % Neutrophils # (1.3-7.7) k/uL BUN 41 H (7-17) mg/dL Creatinine 2.88 H (0.52-1.04) mg/dL Glucose (74-99) mg/dL POC Glucose (mg/dL) 67 L 65 L (70-110) mg/dL Hemoglobin A1c (<=6.0) % Calcium 8.1 L (8.4-10.2) mg/dL 04/11/23 04/11/23 Range/Units 07:23 11:42 WBC 12.8 H (3.8-10.6) k/uL RBC 3.75 L (3.80-5.40) m/uL Hgb 9.8 L (11.4-16.0) gm/dL Hct 31.5 L (34.0-46.0) % Neutrophils # 9.9 H (1.3-7.7) k/uL BUN (7-17) mg/dL Creatinine (0.52-1.04) mg/dL Glucose (74-99) mg/dL POC Glucose (mg/dL) 158 H (70-110) mg/dL Hemoglobin A1c (<=6.0) % Calcium (8.4-10.2) mg/dL Microbiology - Last 24 Hours (Table) 04/10/23 05:50 Blood Culture - Preliminary Blood 04/10/23 05:45 Blood Culture - Preliminary Blood 04/10/23 12:00 Gram Stain - Preliminary Toe - Left First Assessment and Plan Assessment: Impression: Symptomatic bradycardia, improved Accidental overdose, patient took one extra dose of her metoprolol and verapamil. Severe hyperkalemia, being treated Acute on chronic kidney disease Severe metabolic anion gap acidosis, secondary to above Acute hypoxemic respiratory failure, currently on 3 L per minute nasal cannula, secondary to acute exacerbation of diastolic congestive heart failure. Leukocytosis Normocytic normochromic anemia, no evidence of bleeding Mild transaminitis History of atrial fibrillation, anticoagulated on Xarelto Benign essential hypertension Diabetes mellitus type 2. Morbid obesity, BMI 43.1 kg/m Recommendation: Continue to monitor the patient on 3 S. Continue antibiotics as per infectious disease patient is on daptomycin and cefepime, and Flagyl until cultures are available from the infected site. Continue IV fluids and continue to hold diuretics, monitor renal status on a daily basis Avoid nephrotoxic agents Continue hydralazine for elevated blood pressure Resume home meds We'll continue to follow Time with Patient: Less than 30
[2023-04-11] MEDS: hydrALAZINE HCL 25 MG TAB PO SCH ×2 (14:56→21:08)
[2023-04-11 15:22] LABS: Appearance,Urine Cloudy (Clear); Bilirubin,Urine Negative (Negative); Blood,Urine Negative (Negative); Color,Urine Yellow; Glucose,Urine (UA) Negative (Negative); Ketones,Urine Negative (Negative); Leukocyte Esterase,Urine Large (Negative); Mucus,Urine Rare /hpf; Nitrite,Urine Negative (Negative); PH, Urine 5.5 (5.0-8.0); Protein,Urine 2+ (Negative); RBC,Urine 3 /hpf (0-5); Specific Gravity,Urine 1.015 (1.001-1.035); Squamous Epithelial Cell,Urine 7 /hpf (0-4); Urobilinogen,Urine <2.0 mg/dL (<2.0); WBC,Urine 14 /hpf (0-5)
[2023-04-11 16:37] LABS: Glucose,Whole Blood 66 mg/dL (70-110)
[2023-04-11 16:46] LABS: Glucose,Whole Blood 85 mg/dL (70-110)
[2023-04-11] MEDS: SODIUM CHLORIDE 0.9% 1,000 ML IV SCH ×2 (16:51→23:41)
[2023-04-11 20:09] LABS: Glucose,Whole Blood 78 mg/dL (70-110)
[2023-04-11] MEDS: RIVAROXABAN 20 MG TAB PO SCH (21:08)
[2023-04-12 02:12] LABS: Glucose,Whole Blood 62 mg/dL (70-110)
[2023-04-12 02:24] LABS: Glucose,Whole Blood 68 mg/dL (70-110)
[2023-04-12 02:40] LABS: Glucose,Whole Blood 90 mg/dL (70-110)
[2023-04-12] MEDS: DAPTOmycin 350 MG in SODIUM CHLORIDE 0.9% 50 ML IVPB SCH (03:54)
[2023-04-12 03:58] LABS: Glucose,Whole Blood 109 mg/dL (70-110)
[2023-04-12 06:28] LABS: Glucose,Whole Blood 134 mg/dL (70-110)
[2023-04-12] MEDS: PANTOPRAZOLE 40 MG/10 ML VIAL IVP SCH (08:59)
[2023-04-12] MEDS: CEFEPIME 1 GM in SODIUM CHLORIDE 0.9% 50 ML IVPB SCH ×2 (08:59→21:14)
[2023-04-12] MEDS: traMADol 50 MG TAB PO SCH ×2 (09:00→16:05)
[2023-04-12] MEDS: VERAPAMIL SR 180 MG TABLET.ER PO SCH ×2 (09:00→21:15)
[2023-04-12] MEDS: metroNIDAZOLE 500 MG TAB PO SCH ×3 (09:00→21:15)
[2023-04-12] MEDS: hydrALAZINE HCL 25 MG TAB PO SCH ×2 (09:02→21:15)
[2023-04-12 09:52] LABS: African American GFR (CKD) 21 (>60 ml/min/1.73 sqM); Anion Gap 14 mmol/L; Blood Urea Nitrogen 41 mg/dL (7-17); Carbon Dioxide 22 mmol/L (22-30); Chloride 104 mmol/L (98-107); Glucose 91 mg/dL (74-99); Magnesium 2.1 mg/dL (1.6-2.3); Non-African American GFR(CKD) 18 (>60 ml/min/1.73 sqM); Potassium 5.1 mmol/L (3.5-5.1); Sodium 140 mmol/L (137-145)
[2023-04-12] MEDS: INSULN ASP PRT/INSULIN ASPART 100 UNIT/ML 10 ML VIAL SQ SCH ×3 (10:47→21:15)
--- NOTE | 2023-04-12 11:15 | P.PN ---
Subjective Patient is seen in follow-up for acute kidney injury on chronic kidney disease. Renal function better. Potassium level normal. Has been voiding. Oral intake fair. No vomiting or diarrhea. Family present at bedside. Wants to go home. Vital signs are stable. General: No acute distress. HEENT: Head exam is unremarkable. On nasal cannula. LUNGS: No audible rhonchi or wheezes. HEART: Rate and Rhythm are regular. ABDOMEN: Nontender, obese. EXTREMITITES: No edema. Objective - Vital Signs Vital signs: Vital Signs Temp 97.6 F 04/12/23 07:58 Pulse 56 L 04/12/23 07:58 Resp 18 04/12/23 07:58 BP 139/68 04/12/23 07:58 Pulse Ox 94 L 04/12/23 09:37 FiO2 Intake & Output 04/11/23 04/12/23 04/12/23 18:59 06:59 18:59 Intake Total 1130 Output Total 150 1100 Balance 980 -1100 Weight 130 kg Intake: Intake, IV Titration 650 Amount Cefepime 1 gm In Sodium 50 Chloride 0.9% 50 ml @ 12. 5 mls/hr IVPB Q12HR [facility] Rx#:[id number] Sodium Chloride 0.9% 1, 600 000 ml @ 75 mls/hr IV . [id number] [facility] Rx#:[id number] Oral 480 Output: Urine 1100 Post Void Residual 150 Other: Voiding Method Bedside Commode Bedside Commode # Voids 2 - Labs CBC & Chem 7: 04/11/23 07:23 04/12/23 08:12 Labs: Abnormal Lab Results - Last 24 Hours (Table) 04/11/23 04/11/23 04/11/23 Range/Units 03:00 11:42 16:24 BUN (7-17) mg/dL Creatinine (0.52-1.04) mg/dL POC Glucose (mg/dL) 158 H 66 L (70-110) mg/dL Calcium (8.4-10.2) mg/dL Urine Appearance Cloudy H (Clear) Urine Protein 2+ H (Negative) Ur Leukocyte Esterase Large H (Negative) Urine WBC 14 H (0-5) /hpf Ur Squamous Epith Cells 7 H (0-4) /hpf Urine Mucus Rare H (None) /hpf 04/12/23 04/12/23 04/12/23 Range/Units 01:56 02:22 06:25 BUN (7-17) mg/dL Creatinine (0.52-1.04) mg/dL POC Glucose (mg/dL) 62 L 68 L 134 H (70-110) mg/dL Calcium (8.4-10.2) mg/dL Urine Appearance (Clear) Urine Protein (Negative) Ur Leukocyte Esterase (Negative) Urine WBC (0-5) /hpf Ur Squamous Epith Cells (0-4) /hpf Urine Mucus (None) /hpf 04/12/23 Range/Units 08:12 BUN 41 H (7-17) mg/dL Creatinine 2.60 H (0.52-1.04) mg/dL POC Glucose (mg/dL) (70-110) mg/dL Calcium 8.0 L (8.4-10.2) mg/dL Urine Appearance (Clear) Urine Protein (Negative) Ur Leukocyte Esterase (Negative) Urine WBC (0-5) /hpf Ur Squamous Epith Cells (0-4) /hpf Urine Mucus (None) /hpf Microbiology - Last 24 Hours (Table) 04/10/23 12:00 Gram Stain - Final Toe - Left First Wound Culture - Final 04/10/23 05:50 Blood Culture - Preliminary Blood 04/10/23 05:45 Blood Culture - Preliminary Blood Assessment and Plan Plan: Assessment: 1. Acute kidney injury secondary to hemodynamic ATN. Also component of Bactrim which will impair creatinine secretion. Creatinine improved to 2.6. Kidney ultrasound from December 2022 showed no evidence of hydronephrosis. 2. Chronic kidney disease stage IIIb. Suspect underlying diabetic kidney disease and nephrosclerosis. Baseline creatinine near 1.4 from December 2021 and 2022. 3. Hyperkalemia secondary to acute kidney injury, acidosis and use of Bactrim. Improved with medical management. 4. Metabolic acidosis secondary to acute kidney injury. Status post bicarb drip. Improved. 5. Recent left toe amputation. 6. Diabetes mellitus. 7. History of A. fib. 8. Symptomatic bradycardia. Improved. Patient took additional dose of metoprolol and verapamil by accident. Cardiology following. Plan: Maintain normal saline. Continue to hold diuretics. Not receiving Bactrim. Avoid nephrotoxins. Continue to monitor renal function and urine output. Repeat BMP and magnesium level 2-3 days postdischarge. Follow-up outpatient in 1 week.
[2023-04-12] MEDS: METOPROLOL TARTRATE 25 MG TAB PO SCH ×2 (11:21→21:16)
[2023-04-12 11:29] LABS: Glucose,Whole Blood 139 mg/dL (70-110)
--- NOTE | 2023-04-12 13:04 | P.DS ---
Providers Date of admission: 04/09/23 21:08 Expected date of discharge: 04/12/23 Attending physician: Gaston Boss MD Consults: 04/09/23 22:04 Consult Physician Stat Consulting Provider: Clarence Thompson Consult Reason/Comments: acute renal failure Do you want consulting provider notified?: Yes 04/10/23 01:12 Consult Physician Stat Consulting Provider: Iglesia Escudero Consult Reason/Comments: Open foot wound Do you want consulting provider notified?: Yes, Notify in am 04/10/23 01:34 Consult Physician Stat Consulting Provider: Lv Nj Consult Reason/Comments: ICU management Do you want consulting provider notified?: Already Contacted Primary care physician: [facility] Course: Final Diagnoses: Accidental overdose of metoprolol, verapamil with subsequent symptomatic bradycardia and hypotension Acute hypoxic respiratory failure secondary to the above Acute on Chronic renal failure stage IIIB, baseline creatinine 1.2-1.4 secondary to diabetic kidney disease, Lasix continues on hold as per nephrology Critical hyperkalemia, resolved Metabolic acidosis, maintained on bicarb drip Anemia of chronic disease History of left foot gangrene,recent amputation of left great toe, 04/02/2023, resulting with nonhealing ulceration, diabetic foot ulcer, follows with [facility] Wound care. 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 Leukocytosis Chronic diastolic CHF History of SVT History of paroxysmal atrial fibrillation, anticoagulated on Xarelto Diabetes mellitusII, hemoglobin A1c 10.3 on 12/22/2022, A1c 9.4, further tatyana betic education in clinic. Hypertension Hospital course:This is a 81-year-old female with past medical history significant for paroxysmal atrial fibrillation, SVT, CHF ,hypertension, diabetes mellitus, COPD/asthma, chronic renal failure stage III, recent left toe amputation 04/02/23, brought into the ER yesterday after patient asked that we took extra doses of her morning meds, metoprolol and verapamil. Developed dizziness, lightheadedness, shortness of breath and nausea. Patient presented in acute renal failure on admission, bicarbonate 11, BUN of 35, creatinine 2.97, had been on Bactrim post surgery.Placed on bicarb drip. Blood cultures reporting strep agalactiae and staph epidermidis. On admission bradycardic, heart rates in the 20s patient was severely hyperkalemic with a potassium of 7.5, received hyperkalemic cocktail in the ER with most recent potassium level down to 5.4. Blood sugars stable. Maintained on IV fluid hydration , eventually required nonrebreather for a few hours which has been weaned to 2 L nasal cannula. Chest x-ray reported severe cardiomegaly, mild pulmonary vascular congestion. Blood pressures remained stable without pressor support. EKG reported junctional bradycardia. Denies chest pain, palpitations. In regards to recent toe amputation, reports drain came out 2-3 days ago, follows with [facility] care [facility], which has been consulted. This morning renal function improved. 04/11/2023 transferred out of ICU currently on stepdown. Significant clinical improvement. Receiving IV fluid hydration. Maintained on IV antibiotics of daptomycin, cefepime Afebrile, WBC 12.8. Preliminary blood cultures no growth after 24 hours 2, Gram stain reporting gm Positive cocci, aerobic wound culture pending culture Hemoglobin 9.8, platelets 308. Potassium 4.9. Renal function stable. Bicarb 25 BUN 41, creatinine 2.88. Blood sugars controlled this morning. Denies chest pain, palpitations or shortness of breath. Maintaining O2 sats in the 90s on 2 L nasal cannula. 04/12/2023 sitting up in bed, denies chest pain, palpitations or shortness of breath. Denies lightheadedness, dizziness or focal deficits. Heart rates ranging from low 50s to 70s. Maintaining O2 sats in the 90s on room air. Denies nausea vomiting or diarrhea. Renal function improving, BUN 41, creatinine 2.6. Eagerly for discharge. Significant clinical improvement. Patient has been cleared by all consults for discharge and will be discharged home today in a stable condition with guarded prognosis. Microbiology 04/10/23 05:50 Blood Blood Culture - Preliminary 04/10/23 05:45 Blood Blood Culture - Preliminary 04/10/23 12:00 Toe - Left First Gram Stain - Final 04/10/23 12:00 Toe - Left First Wound Culture - Final The impression and plan of care has been dictated as directed. : I performed a history and examination of this patient, discussed the same with the dictator. I agree with the dictator's note ,documented as a scribe. Any additional findings or plans will be noted. Patient Condition at Discharge: Stable Plan - Discharge Summary New Discharge Prescriptions: New metroNIDAZOLE [Flagyl] 500 mg PO TID #30 tab Cephalexin [Keflex] 500 mg PO Q8HR 10 Days #30 cap hydrALAZINE HCL [Apresoline] 25 mg PO BID #60 tab Collagenase [Santyl Ointment] 1 applic TOPICAL HS each Acetaminophen Tab [Tylenol] 650 mg PO Q4HR PRN tab PRN Reason: Fever And/ Or Pain Continue traMADol HCL 50 mg PO Q8H Albuterol Nebulized [Ventolin Nebulized] 2.5 mg INHALATION RT-QID PRN PRN Reason: Shortness Of Breath Montelukast [Singulair] 10 mg PO HS #30 tab Rivaroxaban [Xarelto] 20 mg PO HS EPINEPHrine [Primatene Mist] 1 puff INHALATION RT-QID PRN PRN Reason: Shortness Of Breath Verapamil HCl [Verapamil ER] 180 mg PO BID Loratadine [Claritin] 10 mg PO HS Metoprolol Tartrate [Lopressor] 25 mg PO BID #60 tab Changed Insulin NPH Hum/Reg Insulin Hm [Novolin 70-30 Flexpen] 20 units SQ BID #0 Discontinued Furosemide [Lasix] 20 mg PO DAILY Sulfamethox-Tmp 800-160Mg [Bactrim DS 800-160 mg] 1 tab PO Q12HR Discharge Medication List Albuterol Nebulized [Ventolin Nebulized] 2.5 mg INHALATION RT-QID PRN 08/27/21 [History] Verapamil HCl [Verapamil ER] 180 mg PO BID 08/27/21 [History] traMADol HCL 50 mg PO Q8H 08/27/21 [History] Montelukast [Singulair] 10 mg PO HS #30 tab 08/28/21 [Rx] EPINEPHrine [Primatene Mist] 1 puff INHALATION RT-QID PRN 12/21/22 [History] Loratadine [Claritin] 10 mg PO HS 12/21/22 [History] Rivaroxaban [Xarelto] 20 mg PO HS 12/21/22 [History] Metoprolol Tartrate [Lopressor] 25 mg PO BID #60 tab 12/24/22 [Rx] Acetaminophen Tab [Tylenol] 650 mg PO Q4HR PRN tab 04/12/23 [Rx] Cephalexin [Keflex] 500 mg PO Q8HR 10 Days #30 cap 04/12/23 [Rx] Collagenase [Santyl Ointment] 1 applic TOPICAL HS each 04/12/23 [Rx] Insulin NPH Hum/Reg Insulin Hm [Novolin 70-30 Flexpen] 20 units SQ BID #0 04/12/23 [Rx] hydrALAZINE HCL [Apresoline] 25 mg PO BID #60 tab 04/12/23 [Rx] metroNIDAZOLE [Flagyl] 500 mg PO TID #30 tab 04/12/23 [Rx] Follow up Appointment(s)/Referral(s): [facility], [NON-STAFF] - Gaston Boss MD [STAFF PHYSICIAN] - 3 Days Ama Larson NPC [Nurse Practitioner] - 1 Week Ambulatory/Diagnostic Orders: Complete Blood Count w/diff [LAB.AMB] Time Frame: 3 Days, Location: None Selected Activity/Diet/Wound Care/Special Instructions: Arrange wound care appointment with wound care center prior to discharge. Continue holding Lasix, reevaluate in clinic with PCP
--- NOTE | 2023-04-12 13:16 | P.PN ---
Subjective Progress Note Date: 04/12/23 Principal diagnosis: Hypotension, bradycardia and hyperkalemia, accidental overdose of metoprolol and verapamil I am seeing this patient in new consultation today 04/10/2023 in the intensive care unit after she accidentally took an extra dose of her metoprolol and verapamil while at home. She then became lightheaded and dizzy and was brought into the emergency room by her daughter. Patient is a 72-year-old female with past medical history significant for atrial fibrillation, congestive heart failure, hypertension, diabetes mellitus, among other things. Patient recently had a left great toe amputation for gangrene April 02. Blood cultures were positive for strep agalactiae and staph epidermidis. Patient states she's been on Bactrim since. Apparently, yesterday the patient may have accidentally received one extra dose of her verapamil and metoprolol. She then became lightheaded and dizzy while at home. Patient's daughter did bring her to the emergency room. While in the emergency room, the patient was found to be severely hyperkalemic with a potassium of 7.5. She is a component of acute on chronic kidney disease. She did have an episode of symptomatic bradycardia, I'm told that her heart rate dropped down to around 20 bpm. Patient reportedly neve r lost a pulse. Patient was treated with 1 amp sodium bicarb, 10 units regular insulin, amp D50W, 1 g calcium gluconate, albuterol neb. Repeat potassium is pending. BMP shows a sodium 133, potassium 7.5, chloride 103, serum bicarb 11, BUN 35, creatinine 2.97, glucose 214. CBC on arrival shows leukocytosis with a WBC count is 15.2, hemoglobin 10.8, hematocrit 34.6, platelets unable to be measured. Patient is currently sitting up in bed, on 4 L per minute nasal cannula, in no acute distress. She is alert and oriented. Able to answer most of my questions. She denies any chest pain, heart palpitations, or syncope. Denies any fevers, chills, cough. Denies any urinary complaints. Denies nausea, vomiting, diarrhea. She does report some left foot pain from a previous left great toe amputation site. EKG appears to show junctional bradycardia with a heart rate of 53 bpm. Blood pressure is normotensive. Not receiving any vasopressors. Normal saline is infusing at 50 ML's per hour. Chest x-ray showed mild pulmonary vascular congestion and severe cardiomegaly. Patient's condition is currently critical, and being monitored in the intensive care unit. Patient was seen and examined today on 04/11/23, patient is doing well, relatively asymptomatic, she is now on 3 S., no major issues over the last 24 hours. On 2 L nasal cannula, O2 saturation ranging between 94 up to 98% heart r ate is in the 50s, blood pressure is 150/55. WBC count is 12.8 hemoglobin 9.80 left was normal BUN is 41 and creatinine 2.88, it was 3.0 to yesterday. And 2.97 on admission. This is being addressed by related to ATN related to hypotension. Patient was seen by infectious disease for her toe infection/left foot cellulitis, and recent appendectomy dictation of left great toe. Patient was kept on daptomycin and cefepime and Flagyl until cultures are available. Reevaluated today on 04/12/23, it is doing great, relatively asymptomatic, hardly any pulmonary symptoms, patient is being considered for discharge home today. Labs are unremarkable creatinine however remains elevated at 2.60. Objective - Vital Signs Vital signs: Vital Signs Temp 98.2 F 04/12/23 12:00 Pulse 48 L 04/12/23 12:00 Resp 18 04/12/23 12:00 BP 139/62 04/12/23 12:00 Pulse Ox 92 L 04/12/23 12:00 FiO2 Intake & Output 04/11/23 04/12/23 04/12/23 18:59 06:59 18:59 Intake Total 1130 Output Total 150 1100 Balance 980 -1100 Weight 130 kg Intake: Intake, IV Titration 650 Amount Cefepime 1 gm In Sodium 50 Chloride 0.9% 50 ml @ 12. 5 mls/hr IVPB Q12HR [facility] Rx#:[id number] Sodium Chloride 0.9% 1, 600 000 ml @ 75 mls/hr IV . [id number] [facility] Rx#:[id number] Oral 480 Output: Urine 1100 Post Void Residual 150 Other: Voiding Method Bedside Commode Bedside Commode # Voids 2 1 - Exam Physical Exam: Revealed a 72-year-old female in no distress, pleasant, on room air Head: Atraumatic, normocephalic. HEENT:[Neck is supple.] [No neck masses.] [No thyromegaly.] [No JVD.] Chest: [Clear throughout, no crackles, no rhonchi, no wheezes.] Cardiac Exam: [Normal S1 and S2, no S3 gallop, no murmur.] Abdomen: [Obese, Soft, nontender, no megaly, no rebound, no guarding, normal bowel sounds.] Extremities: [No clubbing, no edema, no cyanosis.] Left great toe amputation site appears to have necrosis and serosanguineous drainage noted./Evidence of cellulitis Neurological Exam: [No focal neurologic deficit.] Alert oriented 3 Psychiatric: Normal mood affect and normal status examination. Skin: As noted above under extremities with her site of amputation showing cellulitis. - Labs CBC & Chem 7: 04/11/23 07:23 04/12/23 08:12 Labs: Abnormal Lab Results - Last 24 Hours (Table) 04/11/23 04/11/23 04/12/23 Range/Units 03:00 16:24 01:56 BUN (7-17) mg/dL Creatinine (0.52-1.04) mg/dL POC Glucose (mg/dL) 66 L 62 L (70-110) mg/dL Calcium (8.4-10.2) mg/dL Urine Appearance Cloudy H (Clear) Urine Protein 2+ H (Negative) Ur Leukocyte Esterase Large H (Negative) Urine WBC 14 H (0-5) /hpf Ur Squamous Epith Cells 7 H (0-4) /hpf Urine Mucus Rare H (None) /hpf 04/12/23 04/12/23 04/12/23 Range/Units 02:22 06:25 08:12 BUN 41 H (7-17) mg/dL Creatinine 2.60 H (0.52-1.04) mg/dL POC Glucose (mg/dL) 68 L 134 H (70-110) mg/dL Calcium 8.0 L (8.4-10.2) mg/dL Urine Appearance (Clear) Urine Protein (Negative) Ur Leukocyte Esterase (Negative) Urine WBC (0-5) /hpf Ur Squamous Epith Cells (0-4) /hpf Urine Mucus (None) /hpf 04/12/23 Range/Units 11:27 BUN (7-17) mg/dL Creatinine (0.52-1.04) mg/dL POC Glucose (mg/dL) 139 H (70-110) mg/dL Calcium (8.4-10.2) mg/dL Urine Appearance (Clear) Urine Protein (Negative) Ur Leukocyte Esterase (Negative) Urine WBC (0-5) /hpf Ur Squamous Epith Cells (0-4) /hpf Urine Mucus (None) /hpf Microbiology - Last 24 Hours (Table) 04/10/23 05:50 Blood Culture - Preliminary Blood 04/10/23 05:45 Blood Culture - Preliminary Blood 04/10/23 12:00 Gram Stain - Final Toe - Left First Wound Culture - Final Assessment and Plan Assessment: Impression: Symptomatic bradycardia, improved Accidental overdose, patient took one extra dose of her metoprolol and verapamil. Severe hyperkalemia, being treated Acute on chronic kidney disease Severe metabolic anion gap acidosis, secondary to above Acute hypoxemic respiratory failure, currently on 3 L per minute nasal cannula, secondary to acute exacerbation of diastolic congestive heart failure. Leukocytosis Normocytic normochromic anemia, no evidence of bleeding Mild transaminitis History of atrial fibrillation, anticoagulated on Xarelto Benign essential hypertension Diabetes mellitus type 2. Morbid obesity, BMI 43.1 kg/m Recommendation: Continue present supportive care measures Will clear for discharge if cleared by other consultants No active pulmonary issues are ICU issues at this point. Patient should have follow-up with nephrology regarding her acute kidney injury. We'll continue to follow Time with Patient: Less than 30
--- NOTE | 2023-04-12 15:04 | P.PN ---
Subjective Progress Note Date: 04/12/23 Principal diagnosis: Left big toe amputation site wound dehiscence and cellulitis Patient is a 72-year-old female with a past medical history significant for diabetes mellitus hypertension atrial fibrillation heart failure patient recently did have a left big toe amputation done on 04/02/[address] Chapman and the patient was subsequently discharged home cultures obtained at the time of surgery did grew staph epi and Streptococcus agalactiae, patient presented to hospital with overdosing on her blood pressure medication with hypertension and was noticed at the bases of the left big toe amputation site wound On today's evaluation that is 04/12/2023, the patient remains to be afebrile, the patient is breathing comfortably on room air and denies any shortness of breath, the patient denies any chest pain or cough, patient denies nausea/vomiting or diarrhea and no abdominal pain, did have occasional pain to the left big toe amputation site Creatinine is 2.60 cultures normal skin espinoza Objective - Vital Signs Vital signs: Vital Signs Temp 97.6 F 04/12/23 07:58 Pulse 59 L 04/12/23 11:19 Resp 18 04/12/23 11:19 BP 139/68 04/12/23 07:58 Pulse Ox 94 L 04/12/23 09:37 FiO2 Intake & Output 04/11/23 04/12/23 04/12/23 18:59 06:59 18:59 Intake Total 1130 Output Total 150 1100 Balance 980 -1100 Weight 130 kg Intake: Intake, IV Titration 650 Amount Cefepime 1 gm In Sodium 50 Chloride 0.9% 50 ml @ 12. 5 mls/hr IVPB Q12HR [facility] Rx#:[id number] Sodium Chloride 0.9% 1, 600 000 ml @ 75 mls/hr IV . [id number] [facility] Rx#:[id number] Oral 480 Output: Urine 1100 Post Void Residual 150 Other: Voiding Method Bedside Commode Bedside Commode # Voids 2 1 - Exam GENERAL DESCRIPTION: An elderly female lying in bed in no distress RESPIRATORY SYSTEM: Unlabored breathing , clear to auscultation anteriorly HEART: S1 S2 regular rate and rhythm , ABDOMEN: Soft , no tenderness EXTREMITIES: Left big toe wound is stressed - Labs CBC & Chem 7: 04/11/23 07:23 04/12/23 08:12 Labs: Abnormal Lab Results - Last 24 Hours (Table) 11/02/23 11/02/23 11/03/23 Range/Units 03:00 16:24 01:56 BUN (7-17) mg/dL Creatinine (0.52-1.04) mg/dL POC Glucose (mg/dL) 66 L 62 L (70-110) mg/dL Calcium (8.4-10.2) mg/dL Urine Appearance Cloudy H (Clear) Urine Protein 2+ H (Negative) Ur Leukocyte Esterase Large H (Negative) Urine WBC 14 H (0-5) /hpf Ur Squamous Epith Cells 7 H (0-4) /hpf Urine Mucus Rare H (None) /hpf 04/12/23 04/12/23 04/12/23 Range/Units 02:22 06:25 08:12 BUN 41 H (7-17) mg/dL Creatinine 2.60 H (0.52-1.04) mg/dL POC Glucose (mg/dL) 68 L 134 H (70-110) mg/dL Calcium 8.0 L (8.4-10.2) mg/dL Urine Appearance (Clear) Urine Protein (Negative) Ur Leukocyte Esterase (Negative) Urine WBC (0-5) /hpf Ur Squamous Epith Cells (0-4) /hpf Urine Mucus (None) /hpf 04/12/23 Range/Units 11:27 BUN (7-17) mg/dL Creatinine (0.52-1.04) mg/dL POC Glucose (mg/dL) 139 H (70-110) mg/dL Calcium (8.4-10.2) mg/dL Urine Appearance (Clear) Urine Protein (Negative) Ur Leukocyte Esterase (Negative) Urine WBC (0-5) /hpf Ur Squamous Epith Cells (0-4) /hpf Urine Mucus (None) /hpf Microbiology - Last 24 Hours (Table) 04/10/23 12:00 Gram Stain - Final Toe - Left First Wound Culture - Final 04/10/23 05:50 Blood Culture - Preliminary Blood 04/10/23 05:45 Blood Culture - Preliminary Blood Assessment and Plan (1) Amputation of left great toe Current Visit: Yes Status: Acute Code(s): S98.112A - COMPLETE TRAUMATIC AMPUTATION OF LEFT GREAT TOE, INIT ENCNTR SNOMED Code(s): 438475120 (2) Non-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 Current Visit: Yes Status: Acute Code(s): L97.524 - NON-PRS CHRONIC ULCER OTH PRT LEFT FOOT W NECROSIS OF BONE SNOMED Code(s): 96215229857313215 (3) Cellulitis of left foot Current Visit: Yes Status: Acute Code(s): L03.116 - CELLULITIS OF LEFT LOWER LIMB SNOMED Code(s): 37741419328640555 Plan: 1patient with a left diabetic foot infection in this patient with recent left big toe amputation now with evidence of wound dehiscence and some cellulitis we will need to cover for the polymicrobial espinoza usually associated with this infection with a recent culture positive for streptococci collected and staph epi 2-patient with renal insufficiency high risk of nephrotoxicity 3-penicillin allergy that will limit number of antibiotics safe to use 4-deep local culture has been obtained both aerobic and anaerobic currently grow ing normal skin espinoza 5-patient will be given a short course of oral Keflex and Flagyl on the basis of previous culture and close patient follow-up prescription was sent to pharmacy Dictation was produced using [employer] dictation software. please excuse any grammatical, word or spelling errors. Time with Patient: Less than 30
[2023-04-12 15:18] LABS: Glucose,Whole Blood 96 mg/dL (70-110)
[2023-04-12] MEDS: SODIUM CHLORIDE 0.9% 1,000 ML IV SCH (16:05)
[2023-04-12 17:10] LABS: Glucose,Whole Blood 110 mg/dL (70-110)
[2023-04-12 20:14] LABS: Glucose,Whole Blood 197 mg/dL (70-110)
[2023-04-12] MEDS: COLLAGENASE 250 UNIT/GM OINTMENT 30 GM TUBE TOPICAL SCH (21:13)
[2023-04-12] MEDS: ACETAMINOPHEN TAB 325 MG TAB PO PRN (21:15)
[2023-04-12] MEDS: RIVAROXABAN 20 MG TAB PO SCH (21:16)
[2023-04-13] MEDS: traMADol 50 MG TAB PO SCH ×3 (00:51→16:13)
[2023-04-13] MEDS: SODIUM CHLORIDE 0.9% 1,000 ML IV SCH ×2 (04:40→15:29)
[2023-04-13] MEDS: ACETAMINOPHEN TAB 325 MG TAB PO PRN ×3 (05:46→21:08)
[2023-04-13 06:18] LABS: Glucose,Whole Blood 73 mg/dL (70-110)
[2023-04-13] MEDS: VERAPAMIL SR 180 MG TABLET.ER PO SCH ×2 (08:45→21:09)
[2023-04-13] MEDS: PANTOPRAZOLE 40 MG/10 ML VIAL IVP SCH (08:45)
[2023-04-13] MEDS: hydrALAZINE HCL 25 MG TAB PO SCH (08:45)
[2023-04-13] MEDS: metroNIDAZOLE 500 MG TAB PO SCH ×3 (08:45→21:09)
[2023-04-13] MEDS: CEFEPIME 1 GM in SODIUM CHLORIDE 0.9% 50 ML IVPB SCH ×2 (08:45→21:08)
[2023-04-13 09:32] LABS: Glucose,Whole Blood 91 mg/dL (70-110)
[2023-04-13] MEDS ORDERED: hydrALAZINE HCL 20 MG/ML 1 ML VIAL IVP PRN (10:26)
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
--- NOTE | 2023-04-13 11:25 | P.PN ---
Subjective Patient is seen in follow-up for acute kidney injury on chronic kidney disease. Renal function better. Potassium level normal. Has been voiding. Oral intake fair. No vomiting or diarrhea. Blood pressure high. Vital signs are stable. General: No acute distress. HEENT: Head exam is unremarkable. On nasal cannula. LUNGS: No audible rhonchi or wheezes. HEART: Rate and Rhythm are regular. ABDOMEN: Nontender, obese. EXTREMITITES: No edema. Objective - Vital Signs Vital signs: Vital Signs Temp 97.6 F 04/13/23 09:00 Pulse 62 04/13/23 09:00 Resp 14 04/13/23 09:00 BP 196/85 04/13/23 09:00 Pulse Ox 94 L 04/13/23 09:00 FiO2 Intake & Output 04/12/23 04/13/23 04/13/23 18:59 06:59 18:59 Intake Total 240 Output Total 225 600 325 Balance -225 -600 -85 Intake: Oral 240 Output: Urine 225 600 325 Other: Voiding Method Bedside Commode Bedside Commode # Voids 1 1 - Labs CBC & Chem 7: 04/11/23 07:23 04/12/23 08:12 Labs: Abnormal Lab Results - Last 24 Hours (Table) 04/12/23 04/12/23 Range/Units 11:27 20:13 POC Glucose (mg/dL) 139 H 197 H (70-110) mg/dL Microbiology - Last 24 Hours (Table) 04/10/23 05:50 Blood Culture - Preliminary Blood 04/10/23 05:45 Blood Culture - Preliminary Blood 04/10/23 12:00 Gram Stain - Final Toe - Left First Wound Culture - Final Assessment and Plan Plan: Assessment: 1. Acute kidney injury secondary to hemodynamic ATN. Also component of Bactrim which will impair creatinine secretion. Creatinine improved to 2.6. Kidney ultrasound from December 2022 showed no evidence of hydronephrosis. 2. Chronic kidney disease stage IIIb. Suspect underlying diabetic kidney disease and nephrosclerosis. Baseline creatinine near 1.4 from December 2021 and 2022. 3. Hyperkalemia secondary to acute kidney injury, acidosis and use of Bactrim. Improved with medical management. 4. Metabolic acidosis secondary to acute kidney injury. Status post bicarb drip. Improved. 5. Recent left toe amputation. 6. Diabetes mellitus. 7. History of A. fib. 8. Symptomatic bradycardia. Improved. Patient took additional dose of metoprolol and verapamil by accident. Cardiology following. 9. Hypertension with chronic kidney disease. Plan: Hep-Lock IV fluids. Encourage oral intake. Increase dose of hydralazine to 50 mg 3 times daily. Hold for systolic blood pressure less than 120. Add when necessary hydralazine as well. Not receiving Bactrim. Avoid nephrotoxins. Continue to monitor renal function and urine output. Morning labs pending. Repeat BMP and magnesium level 2-3 days postdischarge. Follow-up outpatient in 1 week.
[2023-04-13 11:37] LABS: Glucose,Whole Blood 84 mg/dL (70-110)
[2023-04-13] MEDS: INSULN ASP PRT/INSULIN ASPART 100 UNIT/ML 10 ML VIAL SQ SCH ×2 (11:39→20:46)
[2023-04-13] MEDS: METOPROLOL TARTRATE 25 MG TAB PO SCH ×2 (11:41→21:09)
[2023-04-13 12:10] LABS: African American GFR (CKD) 30 (>60 ml/min/1.73 sqM); Anion Gap 11 mmol/L; Blood Urea Nitrogen 30 mg/dL (7-17); Calcium 8.1 mg/dL (8.4-10.2); Carbon Dioxide 21 mmol/L (22-30); Chloride 108 mmol/L (98-107); Glucose 82 mg/dL (74-99); Magnesium 2.1 mg/dL (1.6-2.3); Non-African American GFR(CKD) 26 (>60 ml/min/1.73 sqM); Sodium 140 mmol/L (137-145)
--- NOTE | 2023-04-13 12:55 | P.PN ---
Subjective Progress Note Date: 04/13/23 Principal diagnosis: Hypotension, bradycardia and hyperkalemia, accidental overdose of metoprolol and verapamil I am seeing this patient in new consultation today 04/10/2023 in the intensive care unit after she accidentally took an extra dose of her metoprolol and verapamil while at home. She then became lightheaded and dizzy and was brought into the emergency room by her daughter. Patient is a 72-year-old female with past medical history significant for atrial fibrillation, congestive heart failure, hypertension, diabetes mellitus, among other things. Patient recently had a left great toe amputation for gangrene April 02. Blood cultures were positive for strep agalactiae and staph epidermidis. Patient states she's been on Bactrim since. Apparently, yesterday the patient may have accidentally received one extra dose of her verapamil and metoprolol. She then became lightheaded and dizzy while at home. Patient's daughter did bring her to the emergency room. While in the emergency room, the patient was found to be severely hyperkalemic with a potassium of 7.5. She is a component of acute on chronic kidney disease. She did have an episode of symptomatic bradycardia, I'm told that her heart rate dropped down to around 20 bpm. Patient reportedly neve r lost a pulse. Patient was treated with 1 amp sodium bicarb, 10 units regular insulin, amp D50W, 1 g calcium gluconate, albuterol neb. Repeat potassium is pending. BMP shows a sodium 133, potassium 7.5, chloride 103, serum bicarb 11, BUN 35, creatinine 2.97, glucose 214. CBC on arrival shows leukocytosis with a WBC count is 15.2, hemoglobin 10.8, hematocrit 34.6, platelets unable to be measured. Patient is currently sitting up in bed, on 4 L per minute nasal cannula, in no acute distress. She is alert and oriented. Able to answer most of my questions. She denies any chest pain, heart palpitations, or syncope. Denies any fevers, chills, cough. Denies any urinary complaints. Denies nausea, vomiting, diarrhea. She does report some left foot pain from a previous left great toe amputation site. EKG appears to show junctional bradycardia with a heart rate of 53 bpm. Blood pressure is normotensive. Not receiving any vasopressors. Normal saline is infusing at 50 ML's per hour. Chest x-ray showed mild pulmonary vascular congestion and severe cardiomegaly. Patient's condition is currently critical, and being monitored in the intensive care unit. Patient was seen and examined today on 04/11/23, patient is doing well, relatively asymptomatic, she is now on 3 S., no major issues over the last 24 hours. On 2 L nasal cannula, O2 saturation ranging between 94 up to 98% heart r ate is in the 50s, blood pressure is 150/55. WBC count is 12.8 hemoglobin 9.80 left was normal BUN is 41 and creatinine 2.88, it was 3.0 to yesterday. And 2.97 on admission. This is being addressed by related to ATN related to hypotension. Patient was seen by infectious disease for her toe infection/left foot cellulitis, and recent appendectomy dictation of left great toe. Patient was kept on daptomycin and cefepime and Flagyl until cultures are available. Reevaluated today on 04/12/23, it is doing great, relatively asymptomatic, hardly any pulmonary symptoms, patient is being considered for discharge home today. Labs are unremarkable creatinine however remains elevated at 2.60. Patient was reevaluated today on 04/13/23. Patient was supposed to be discharged home yesterday however she had an episode of symptomatic bradycardia and hypertension that she developed yesterday. Patient was seen by cardiology this morning, suggested that the patient remains on beta blockers and verapamil, she was also placed on hydralazine by nephrology and this will be kept the same. Patient was on Xarelto and the dose was decreased down to 15 mg because of her renal functioning patient does have history of eczema smell atrial fibrillation and history of AV chidi reentry tachycardia. Pulmonary-sevilla the patient is relatively asymptomatic, today she has no cough no wheezing no shortness of br eath and no chest pain basic metabolic profile is normal creatinine is 1.9, it was 2.60 yesterday. Objective - Vital Signs Vital signs: Vital Signs Temp 97.6 F 04/13/23 09:00 Pulse 62 04/13/23 09:00 Resp 14 04/13/23 09:00 BP 196/85 04/13/23 09:00 Pulse Ox 94 L 04/13/23 09:00 FiO2 Intake & Output 04/12/23 04/13/23 04/13/23 18:59 06:59 18:59 Intake Total 1320 Output Total 225 600 325 Balance -225 -600 995 Intake: Intake, IV Titration 600 Amount Cefepime 1 gm In Sodium 50 Chloride 0.9% 50 ml @ 12. 5 mls/hr IVPB Q12HR ANTHONY Rx#:[id number] Sodium Chloride 0.9% 1, 550 000 ml @ 75 mls/hr IV . [id number] ANTHONY Rx#:[id number] Oral 720 Output: Urine 225 600 325 Other: Voiding Method Bedside Commode Bedside Commode Bedside Commode # Voids 1 1 - Exam Physical Exam: Revealed a 72-year-old female in no distress, pleasant, on room air Head: Atraumatic, normocephalic. HEENT:[Neck is supple.] [No neck masses.] [No thyromegaly.] [No JVD.] Chest: [Clear throughout, no crackles, no rhonchi, no wheezes.] Cardiac Exam: [Normal S1 and S2, no S3 gallop, no murmur.] Abdomen: [Obese, Soft, nontender, no megaly, no rebound, no guarding, normal bowel sounds.] Extremities: [No clubbing, no edema, no cyanosis.] Left great toe amputation noted. Neurological Exam: [No focal neurologic deficit.] Alert oriented 3 Psychiatric: Normal mood affect and normal status examination. Skin: No rashes - Labs CBC & Chem 7: 04/11/23 07:23 04/13/23 10:38 Labs: Abnormal Lab Results - Last 24 Hours (Table) 04/12/23 04/13/23 Range/Units 20:13 10:38 Chloride 108 H (98-107) mmol/L Carbon Dioxide 21 L (22-30) mmol/L BUN 30 H (7-17) mg/dL Creatinine 1.91 H (0.52-1.04) mg/dL POC Glucose (mg/dL) 197 H (70-110) mg/dL Calcium 8.1 L (8.4-10.2) mg/dL Microbiology - Last 24 Hours (Table) 04/10/23 05:50 Blood Culture - Preliminary Blood 04/10/23 05:45 Blood Culture - Preliminary Blood 04/10/23 12:00 Gram Stain - Final Toe - Left First Wound Culture - Final Assessment and Plan Assessment: Impression: Symptomatic bradycardia, improved Accidental overdose, patient took one extra dose of her metoprolol and verapamil. Severe hyperkalemia, being treated Acute on chronic kidney disease Severe metabolic anion gap acidosis, secondary to above Acute hypoxemic respiratory failure, currently on 3 L per minute nasal cannula, secondary to acute exacerbation of diastolic congestive heart failure. Leukocytosis Normocytic normochromic anemia, no evidence of bleeding Mild transaminitis History of atrial fibrillation, anticoagulated on Xarelto Benign essential hypertension Diabetes mellitus type 2. Morbid obesity, BMI 43.1 kg/m Recommendation: Hold discharge planning Continue to monitor for arrhythmia in the meantime continue antiarrhythmic medications as per cardiology on the case Continue to monitor renal profile Agree with hydralazine for hypertension Continue present supportive care measures No active pulmonary issues, in spite of her cardiac issues and initial admission to ICU We'll continue to follow while inpatient. Time with Patient: Less than 30
[2023-04-13] MEDS: hydrALAZINE HCL 50 MG TAB PO SCH ×2 (16:13→21:09)
[2023-04-13 16:39] LABS: Glucose,Whole Blood 127 mg/dL (70-110)
[2023-04-13 19:11] LABS: Appearance,Urine Clear (Clear); Bacteria,Urine Rare /hpf; Bilirubin,Urine Negative (Negative); Blood,Urine Negative (Negative); Color,Urine Colorless; Glucose,Urine (UA) Negative (Negative); Ketones,Urine Negative (Negative); Leukocyte Esterase,Urine Trace (Negative); Mucus,Urine Rare /hpf; Nitrite,Urine Negative (Negative); PH, Urine 6.5 (5.0-8.0); Protein,Urine 1+ (Negative); RBC,Urine 1 /hpf (0-5); Specific Gravity,Urine 1.005 (1.001-1.035); Squamous Epithelial Cell,Urine <1 /hpf (0-4); Urobilinogen,Urine <2.0 mg/dL (<2.0); WBC,Urine 1 /hpf (0-5)
[2023-04-13 20:12] LABS: Glucose,Whole Blood 126 mg/dL (70-110)
[2023-04-13] MEDS ORDERED: ATORVASTATIN 20 MG TAB PO SCH (21:00)
[2023-04-13] MEDS ORDERED: RIVAROXABAN 15 MG TAB PO SCH (21:00)
[2023-04-13] MEDS: COLLAGENASE 250 UNIT/GM OINTMENT 30 GM TUBE TOPICAL SCH (21:08)
--- NOTE | 2023-04-13 22:15 | P.PN ---
Subjective Progress Note Date: 04/13/23 Patient remains hospitalized due to episode of bradycardia following accidental overdose of metoprolol and verapamil. Cardiology following and hydralazine has been added for improved blood pressure control. BP up to 196/85 today. Creatinine has further improved to 1.91 today. Remains on IV antibiotics in the form of IV cefepime and IV daptomycin. Culture of the left first toe surgical site is negative. ID following. Local wound care in place and legs are LEONEL wrapped bilaterally. Patient reported dysuria. Review of Systems Constitutional: Denied any fatigue denied any fever. Cardio vascular: denied any chest pain, palpitations Gastrointestinal: denied any nausea, vomiting, diarrhea Pulmonary: Denied any shortness of breath cough Neurologic denied any new focal deficits All inpatient medications were reviewed and appropriate changes in these medications as dictated in the interval history and assessment and plan. PHYSICAL EXAMINATION: GENERAL: The patient is alert and oriented x3, not in any acute distress. Well developed, well nourished. HEENT: Pupils are round and equally reacting to light. EOMI. No scleral icterus. No conjunctival pallor. Normocephalic, atraumatic. No pharyngeal erythema. No thyromegaly. CARDIOVASCULAR: S1 and S2 present. No murmurs, rubs, or gallops. PULMONARY: Chest is clear to auscultation, no wheezing or crackles. ABDOMEN: Soft, nontender, nondistended, normoactive bowel sounds. No palpable organomegaly. MUSCULOSKELETAL: No joint swelling or deformity. EXTREMITIES: No cyanosis, clubbing, or pedal edema. NEUROLOGICAL: Gross neurological examination did not reveal any focal deficits. SKIN: No rashes. Assessment Accidental overdose of metoprolol, verapamil with subsequent symptomatic bradycardia and hypotension improving. Patient is now hypertensive. Acute hypoxic respiratory failure secondary to the above now on room air. Acute on Chronic renal failure stage IIIB, baseline creatinine 1.2-1.4 secondary to diabetic kidney disease, Lasix continues on hold as per nephrology Critical hyperkalemia, resolved Metabolic acidosis, off the bicarb gtt. Anemia of chronic disease History of left foot gangrene,recent amputation of left great toe, 04/02/2023, resulting with nonhealing ulceration, diabetic foot ulcer, follows with [facility]. 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 Culture is negative. Currently on IV antibiotics. Leukocytosis Chronic diastolic CHF History of SVT History of paroxysmal atrial fibrillation, anticoagulated on Xarelto Diabetes mellitusII, hemoglobin A1c 10.3 on 12/22/2022, A1c 9.4, further diabetic education in clinic. Hypertension GI prophylaxis DVT prophylaxis Full Code Plan Cardiology following remains on metoprolol and verapamil, now hypertensive and hydralazine has been added by nephrology ID following remains on IV antibiotics Local wound care in place Monitor overnight and repeat labs in AM The impression and plan of care has been dictated by Charlee Harrison, Nurse Practitioner as directed. Dr. Riki MD I have performed a history and physical examination and medical decision making of this patient, discussed the same with the dictator, and agree with the dictators assessment and plan as written, documented as a scribe. Based on total visit time, I have performed more than 50% of this visit. Objective - Vital Signs Vital signs: Vital Signs Temp 98.1 F 04/13/23 16:00 Pulse 75 04/13/23 16:00 Resp 16 04/13/23 16:00 BP 169/65 04/13/23 16:00 Pulse Ox 96 04/13/23 16:00 FiO2 Intake & Output 04/12/23 04/13/23 04/13/23 18:59 06:59 18:59 Intake Total 1440 Output Total 225 600 725 Balance -225 -600 715 Intake: Intake, IV Titration 600 Amount Cefepime 1 gm In Sodium 50 Chloride 0.9% 50 ml @ 12. 5 mls/hr IVPB Q12HR ANTHONY Rx#:[id number] Sodium Chloride 0.9% 1, 550 000 ml @ 75 mls/hr IV . [id number] ANTHONY Rx#:[id number] Oral 840 Output: Urine 225 600 725 Other: Voiding Method Bedside Commode Bedside Commode Bedside Commode # Voids 1 1 - Labs CBC & Chem 7: 04/11/23 07:23 04/13/23 10:38 Labs: Abnormal Lab Results - Last 24 Hours (Table) 04/12/23 04/13/23 Range/Units 20:13 10:38 Chloride 108 H (98-107) mmol/L Carbon Dioxide 21 L (22-30) mmol/L BUN 30 H (7-17) mg/dL Creatinine 1.91 H (0.52-1.04) mg/dL POC Glucose (mg/dL) 197 H (70-110) mg/dL Calcium 8.1 L (8.4-10.2) mg/dL Microbiology - Last 24 Hours (Table) 04/10/23 05:50 Blood Culture - Preliminary Blood 04/10/23 05:45 Blood Culture - Preliminary Blood Assessment and Plan Time with Patient: Less than 30
[2023-04-14] MEDS: traMADol 50 MG TAB PO SCH ×3 (00:03→15:38)
[2023-04-14] MEDS: SODIUM CHLORIDE 0.9% 1,000 ML IV SCH (04:16)
[2023-04-14] MEDS: DAPTOmycin 350 MG in SODIUM CHLORIDE 0.9% 50 ML IVPB SCH (04:44)
[2023-04-14] MEDS: ACETAMINOPHEN TAB 325 MG TAB PO PRN (05:10)
[2023-04-14 06:13] LABS: Glucose,Whole Blood 161 mg/dL (70-110)
[2023-04-14] MEDS: PANTOPRAZOLE 40 MG/10 ML VIAL IVP SCH (08:34)
[2023-04-14] MEDS: VERAPAMIL SR 180 MG TABLET.ER PO SCH (08:35)
[2023-04-14] MEDS: CEFEPIME 1 GM in SODIUM CHLORIDE 0.9% 50 ML IVPB SCH (08:35)
[2023-04-14] MEDS: METOPROLOL TARTRATE 25 MG TAB PO SCH (08:35)
[2023-04-14] MEDS: metroNIDAZOLE 500 MG TAB PO SCH ×2 (08:35→15:38)
[2023-04-14] MEDS: hydrALAZINE HCL 50 MG TAB PO SCH (08:36)
[2023-04-14] MEDS ORDERED: ALPRAZolam 0.25 MG TAB PO STA (08:57)
[2023-04-14] MEDS: INSULN ASP PRT/INSULIN ASPART 100 UNIT/ML 10 ML VIAL SQ SCH (09:38)
[2023-04-14 09:47] LABS: African American GFR (CKD) 36 (>60 ml/min/1.73 sqM); Anion Gap 11 mmol/L; Blood Urea Nitrogen 25 mg/dL (7-17); Calcium 8.7 mg/dL (8.4-10.2); Carbon Dioxide 20 mmol/L (22-30); Chloride 109 mmol/L (98-107); Glucose 137 mg/dL (74-99); Magnesium 2.1 mg/dL (1.6-2.3); Non-African American GFR(CKD) 31 (>60 ml/min/1.73 sqM); Potassium 5.4 mmol/L (3.5-5.1); Sodium 140 mmol/L (137-145)
[2023-04-14] MEDS ORDERED: PHENAZOPYRIDINE 100 MG TAB PO STA (11:35)
--- NOTE | 2023-04-14 11:44 | P.PN ---
Subjective Patient is seen in follow-up for acute kidney injury on chronic kidney disease. Renal function continues to improve. Potassium 5.4. Has been voiding. Oral intake fair. No vomiting or diarrhea. Blood pressure labile. Per daughter, she gets very anxious. Wants to go home. Vital signs are stable. General: No acute distress. HEENT: Head exam is unremarkable. On nasal cannula. LUNGS: No audible rhonchi or wheezes. HEART: Rate and Rhythm are regular. ABDOMEN: Nontender, obese. EXTREMITITES: No edema. Objective - Vital Signs Vital signs: Vital Signs Temp 97.6 F 04/14/23 08:00 Pulse 81 04/14/23 08:00 Resp 16 04/14/23 08:00 BP 196/76 04/14/23 08:00 Pulse Ox 97 04/14/23 08:00 FiO2 Intake & Output 04/13/23 04/14/23 04/14/23 19:59 06:59 18:59 Intake Total Output Total 400 Balance -400 Intake: Intake, IV Titration Amount Cefepime 1 gm In Sodium Chloride 0.9% 50 ml @ 12. 5 mls/hr IVPB Q12HR [facility] Rx#:[id number] Sodium Chloride 0.9% 1, 000 ml @ 75 mls/hr IV . [id number] [facility] Rx#:[id number] Oral Output: Urine 400 Other: Voiding Method Toilet Bedside Commode # Voids 1 - Labs CBC & Chem 7: 04/11/23 07:23 04/14/23 07:52 Labs: Abnormal Lab Results - Last 24 Hours (Table) 04/13/23 04/13/23 04/13/23 Range/Units 16:38 17:37 20:11 Potassium (3.5-5.1) mmol/L Chloride (98-107) mmol/L Carbon Dioxide (22-30) mmol/L BUN (7-17) mg/dL Creatinine (0.52-1.04) mg/dL Glucose (74-99) mg/dL POC Glucose (mg/dL) 127 H 126 H (70-110) mg/dL Urine Protein 1+ H (Negative) Ur Leukocyte Esterase Trace H (Negative) Urine Bacteria Rare H (None) /hpf Urine Mucus Rare H (None) /hpf 04/14/23 04/14/23 Range/Units 06:12 07:52 Potassium 5.4 H (3.5-5.1) mmol/L Chloride 109 H (98-107) mmol/L Carbon Dioxide 20 L (22-30) mmol/L BUN 25 H (7-17) mg/dL Creatinine 1.67 H (0.52-1.04) mg/dL Glucose 137 H (74-99) mg/dL POC Glucose (mg/dL) 161 H (70-110) mg/dL Urine Protein (Negative) Ur Leukocyte Esterase (Negative) Urine Bacteria (None) /hpf Urine Mucus (None) /hpf Microbiology - Last 24 Hours (Table) 04/10/23 05:50 Blood Culture - Preliminary Blood 04/10/23 05:45 Blood Culture - Preliminary Blood Assessment and Plan Plan: Assessment: 1. Acute kidney injury secondary to hemodynamic ATN. Also component of Bactrim which will impair creatinine secretion. Creatinine improved to 1.67. Kidney ultrasound from December 2022 showed no evidence of hydronephrosis. 2. Chronic kidney disease stage IIIb. Suspect underlying diabetic kidney disease and nephrosclerosis. Baseline creatinine near 1.4 from December 2021 and 2022. 3. Hyperkalemia secondary to acute kidney injury, acidosis and use of Bactrim. Improved with medical management. 4. Metabolic acidosis secondary to acute kidney injury. Status post bicarb drip. 5. Recent left toe amputation. 6. Diabetes mellitus. 7. History of A. fib. 8. Symptomatic bradycardia. Improved. Patient took additional dose of metoprolol and verapamil by accident. Cardiology following. 9. Hypertension with chronic kidney disease. Plan: Encourage oral intake. Hold hydralazine for systolic blood pressure less than 120. Increased dose of blood pressure staying above 140/90. Patient given Xanax this morning for anxiety. Not receiving Bactrim. Avoid nephrotoxins. Continue to monitor renal function and urine output. Add oral bicarbonate. Add lokelma. Repeat BMP and magnesium level 2-3 days postdischarge. Follow-up outpatient in 1 week.
[2023-04-14] MEDS ORDERED: NYSTAT-TRIAMCIN 100,000-0.1 UNIT/GM-% OINT 30 GM TUBE TOPICAL SCH (11:45)
[2023-04-14] MEDS ORDERED: SODIUM BICARBONATE TAB 650 MG TAB PO SCH (11:45)
[2023-04-14 11:52] LABS: Glucose,Whole Blood 187 mg/dL (70-110)
[2023-04-14] MEDS ORDERED: TRIAMCINOLONE ACET 0.1% OINTMENT 15 GM TUBE TOPICAL SCH (12:00)
[2023-04-14] MEDS ORDERED: NYSTATIN 100,000 UNIT/GM OINT 30 GM TUBE TOPICAL SCH (12:00)
--- NOTE | 2023-04-14 12:06 | P.PN ---
Subjective Progress Note Date: 04/14/23 Patient remains hospitalized due to episode of bradycardia following accidental overdose of metoprolol and verapamil. Cardiology following and hydralazine has been added for improved blood pressure control. BP up to 196/85 today. Creatinine has further improved to 1.91 today. Remains on IV antibiotics in the form of IV cefepime and IV daptomycin. Culture of the left first toe surgical site is negative. ID following. Local wound care in place and legs are LEONEL wrapped bilaterally. Patient reported dysuria. 04/14/2023 Patient evaluated today wanting to go home. Was anxious overnight and into today feels that is why her BP my be elevated. Was given a dose of xanax x 1. Nephrology following the NEY and patient has been started on oral sodium bicarbonate tablets. Cardiology following. Remains on metoprolol, verapamil and hydralazine. BP 188/[address] place to the left foot, cultures rep eat were negative. Based on prior culture ID recommending course of flagyl and keflex on discharge and those have been sent in. Review of Systems Constitutional: Denied any fatigue denied any fever. Cardio vascular: denied any chest pain, palpitations Gastrointestinal: denied any nausea, vomiting, diarrhea Pulmonary: Denied any shortness of breath cough Neurologic denied any new focal deficits, reports anxiety. All inpatient medications were reviewed and appropriate changes in these medicat ions as dictated in the interval history and assessment and plan. PHYSICAL EXAMINATION: GENERAL: The patient is alert and oriented x3, not in any acute distress. Well developed, well nourished. HEENT: Pupils are round and equally reacting to light. EOMI. No scleral icterus. No conjunctival pallor. Normocephalic, atraumatic. No pharyngeal erythema. No thyromegaly. CARDIOVASCULAR: S1 and S2 present. No murmurs, rubs, or gallops. PULMONARY: Chest is clear to auscultation, no wheezing or crackles. ABDOMEN: Soft, nontender, nondistended, normoactive bowel sounds. No palpable organomegaly. MUSCULOSKELETAL: No joint swelling or deformity. EXTREMITIES: No cyanosis, clubbing, or pedal edema. NEUROLOGICAL: Gross neurological examination did not reveal any focal deficits. SKIN: No rashes. Assessment Accidental overdose of metoprolol, verapamil with subsequent symptomatic bradycardia and hypotension improving. Patient is now hypertensive. Acute hypoxic respiratory failure secondary to the above now on room air. Acute on Chronic renal failure stage IIIB, baseline creatinine 1.2-1.4 secondary to diabetic kidney disease, Lasix continues on hold as per nephrology Critical hyperkalemia, resolved Metabolic acidosis, off the bicarb gtt. Anemia of chronic disease History of left foot gangrene,recent amputation of left great toe, 04/02/2023, resulting with nonhealing ulceration, diabetic foot ulcer, follows with [facility] Wound care. 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 Culture is negative. Currently on IV antibiotics. Leukocytosis Chronic diastolic CHF History of SVT History of paroxysmal atrial fibrillation, anticoagulated on Xarelto Diabetes mellitusII, hemoglobin A1c 10.3 on 12/22/2022, A1c 9.4, further d iabetic education in clinic. Hypertension GI prophylaxis DVT prophylaxis Full Code Plan Cardiology following remains on metoprolol and verapamil, now hypertensive and hydralazine has been added by nephrology Sodium bicarbonate tabs added today and lokelma for the hyperkalemia. ID following remains on IV antibiotics with transition to oral antibiotics on discharge. Local wound care in place Continue to monitor blood pressure. The impression and plan of care has been dictated by Charlee Harrison, Nurse Practitioner as directed. Dr. Riki MD I have performed a history and physical examination and medical decision making of this patient, discussed the same with the dictator, and agree with the dictators assessment and plan as written, documented as a scribe. Based on total visit time, I have performed more than 50% of this visit. Objective - Vital Signs Vital signs: Vital Signs Temp 97.7 F 04/14/23 11:28 Pulse 67 04/14/23 11:28 Resp 16 04/14/23 11:28 BP 188/66 04/14/23 11:28 Pulse Ox 96 04/14/23 11:28 FiO2 Intake & Output 04/13/23 04/14/23 04/14/23 19:59 06:59 18:59 Intake Total Output Total 400 Balance -400 Intake: Intake, IV Titration Amount Cefepime 1 gm In Sodium Chloride 0.9% 50 ml @ 12. 5 mls/hr IVPB Q12HR [facility] Rx#:[id number] Sodium Chloride 0.9% 1, 000 ml @ 75 mls/hr IV . [id number] [facility] Rx#:[id number] Oral Output: Urine 400 Other: Voiding Method Toilet Bedside Commode # Voids 1 - Labs CBC & Chem 7: 04/11/23 07:23 04/14/23 07:52 Labs: Abnormal Lab Results - Last 24 Hours (Table) 04/13/23 04/13/23 04/13/23 Range/Units 16:38 17:37 20:11 Potassium (3.5-5.1) mmol/L Chloride (98-107) mmol/L Carbon Dioxide (22-30) mmol/L BUN (7-17) mg/dL Creatinine (0.52-1.04) mg/dL Glucose (74-99) mg/dL POC Glucose (mg/dL) 127 H 126 H (70-110) mg/dL Urine Protein 1+ H (Negative) Ur Leukocyte Esterase Trace H (Negative) Urine Bacteria Rare H (None) /hpf Urine Mucus Rare H (None) /hpf 04/14/23 04/14/23 Range/Units 06:12 07:52 Potassium 5.4 H (3.5-5.1) mmol/L Chloride 109 H (98-107) mmol/L Carbon Dioxide 20 L (22-30) mmol/L BUN 25 H (7-17) mg/dL Creatinine 1.67 H (0.52-1.04) mg/dL Glucose 137 H (74-99) mg/dL POC Glucose (mg/dL) 161 H (70-110) mg/dL Urine Protein (Negative) Ur Leukocyte Esterase (Negative) Urine Bacteria (None) /hpf Urine Mucus (None) /hpf Microbiology - Last 24 Hours (Table) 04/10/23 05:50 Blood Culture - Preliminary Blood 04/10/23 05:45 Blood Culture - Preliminary Blood Assessment and Plan Time with Patient: Less than 30
[2023-04-14] MEDS ORDERED: ALPRAZolam 0.25 MG TAB PO PRN (12:18)
[2023-04-14] MEDS ORDERED: DEXTROSE 50% SYRINGE 50 ML IVP PRN ×2 (12:19)
--- NOTE | 2023-04-14 12:19 | P.PN ---
Subjective Progress Note Date: 04/14/23 I am seeing this patient in new consultation today 04/10/2023 in the intensive care unit after she accidentally took an extra dose of her metoprolol and verapamil while at home. She then became lightheaded and dizzy and was brought into the emergency room by her daughter. Patient is a 72-year-old female with past medical history significant for atrial fibrillation, congestive heart failure, hypertension, diabetes mellitus, among other things. Patient recently had a left great toe amputation for gangrene April 02. Blood cultures were positive for strep agalactiae and staph epidermidis. Patient states she's been on Bactrim since. Apparently, yesterday the patient may have accidentally received one extra dose of her verapamil and metoprolol. She then became lightheaded and dizzy while at home. Patient's daughter did bring her to the emergency room. While in the emergency room, the patient was found to be severely hyperkalemic with a potassium of 7.5. She is a component of acute on c hronic kidney disease. She did have an episode of symptomatic bradycardia, I'm told that her heart rate dropped down to around 20 bpm. Patient reportedly never lost a pulse. Patient was treated with 1 amp sodium bicarb, 10 units regular insulin, amp D50W, 1 g calcium gluconate, albuterol neb. Repeat potassium is pending. BMP shows a sodium 133, potassium 7.5, chloride 103, serum bicarb 11, BUN 35, creatinine 2.97, glucose 214. CBC on arrival shows leukocytosis with a WBC count is 15.2, hemoglobin 10.8, hematocrit 34.6, platelets unable to be measured. Patient is currently sitting up in bed, on 4 L per minute nasal cannula, in no acute distress. She is alert and oriented. Able to answer most of my questions. She denies any chest pain, heart palpitations, or syncope. Denies any fevers, chills, cough. Denies any urinary complaints. Denies nausea, vomiting, diarrhea. She does report some left foot pain from a previous left great toe amputation site. EKG appears to show junctional bradycardia with a heart rate of 53 bpm. Blood pressure is normotensive. Not receiving any vasopressors. Normal saline is infusing at 50 ML's per hour. Chest x-ray showed mild pulmonary vascular congestion and severe cardiomegaly. Patient's condition is currently critical, and being monitored in the intensive care unit. Patient was seen and examined today on 04/11/23, patient is doing well, relatively asymptomatic, she is now on 3 S., no major issues over the last 24 hours. On 2 L nasal cannula, O2 saturation ranging between 94 up to 98% heart rate is in the 50s, blood pressure is 150/55. WBC count is 12.8 hemoglobin 9.80 left was normal BUN is 41 and creatinine 2.88, it was 3.0 to yesterday. And 2.97 on admission. This is being addressed by related to ATN related to hypotension. Patient was seen by infectious disease for her toe infection/left foot cellulitis, and recent appendectomy dictation of left great toe. Patient was kept on daptomycin and cefepime and Flagyl until cultures are available. Reevaluated today on 04/12/23, it is doing great, relatively asymptomatic, hardly any pulmonary symptoms, patient is being considered for discharge home today. Labs are unremarkable creatinine however remains elevated at 2.60. Patient was reevaluated today on 04/13/23. Patient was supposed to be discharged home yesterday however she had an episode of symptomatic bradycardia and hypertension that she developed yesterday. Patient was seen by cardiology this morning, suggested that the patient remains on beta blockers and verapamil, she was also placed on hydralazine by nephrology and this will be kept the same. Patient was on Xarelto and the dose was decreased down to 15 mg because of her renal functioning patient does have history of eczema smell atrial fibrillation and history of AV chidi reentry tachycardia. Pulmonary-sevilla the patient is relatively asymptomatic, today she has no cough no wheezing no shortness of breath and no chest pain basic metabolic profile is normal creatinine is 1.9, it was 2.60 yesterday. The patient is seen today 04/14/2023 in follow-up on the selective care unit. She is currently resting comfortably in bed. Awake and alert in no acute distress. She is maintaining O2 saturations in the 90s on room air. She is feeling better. She is still having issues with hypertension. Current blood pressure 188/66 with a mean of 106. She's afebrile. Blood cultures reveal no growth. Wound culture from the left first toe revealed no growth. Sodium 140. Potassium 5.4. Bicarb 20. BUN 25. Creatinine 1.67. Glucose 137. She is continued on antibiotics in the form of daptomycin and cefepime. On oral Flagyl. Anticoagulated with Eliquis. Objective - Vital Signs Vital signs: Vital Signs Temp 97.7 F 04/14/23 11:28 Pulse 67 04/14/23 11:28 Resp 16 04/14/23 11:28 BP 188/66 04/14/23 11:28 Pulse Ox 96 04/14/23 11:28 FiO2 Intake & Output 04/13/23 04/14/23 04/14/23 19:59 06:59 18:59 Intake Total Output Total 400 Balance -400 Intake: Intake, IV Titration Amount Cefepime 1 gm In Sodium Chloride 0.9% 50 ml @ 12. 5 mls/hr IVPB Q12HR [facility] Rx#:[id number] Sodium Chloride 0.9% 1, 000 ml @ 75 mls/hr IV . [id number] [facility] Rx#:[id number] Oral Output: Urine 400 Other: Voiding Method Toilet Bedside Commode # Voids 1 - Exam GENERAL EXAM: Alert, pleasant 72-year-old female, on room air, comfortable in no apparent distress. HEAD: Normocephalic. EYES: Normal reaction of pupils, equal size. NOSE: Clear with pink turbinates. THROAT: No erythema or exudates. NECK: No masses, no JVD. CHEST: No chest wall deformity. LUNGS: Equal air entry with no crackles, wheeze, rhonchi or dullness. CVS: S1 and S2 normal with no audible murmur, regular rhythm. ABDOMEN: No hepatosplenomegaly, normal bowel sounds, no guarding or rigidity. SPINE: No scoliosis or deformity SKIN: Left great toe amputation site with areas of necrosis and serosanguineous drainage CENTRAL NERVOUS SYSTEM: No focal deficits, tone is normal in all 4 extremities. EXTREMITIES: There is no peripheral edema. No clubbing, no cyanosis. Peripheral pulses are intact. - Labs CBC & Chem 7: 04/11/23 07:23 04/14/23 07:52 Labs: Abnormal Lab Results - Last 24 Hours (Table) 04/13/23 04/13/23 04/13/23 Range/Units 16:38 17:37 20:11 Potassium (3.5-5.1) mmol/L Chloride (98-107) mmol/L Carbon Dioxide (22-30) mmol/L BUN (7-17) mg/dL Creatinine (0.52-1.04) mg/dL Glucose (74-99) mg/dL POC Glucose (mg/dL) 127 H 126 H (70-110) mg/dL Urine Protein 1+ H (Negative) Ur Leukocyte Esterase Trace H (Negative) Urine Bacteria Rare H (None) /hpf Urine Mucus Rare H (None) /hpf 04/14/23 04/14/23 04/14/23 Range/Units 06:12 07:52 11:50 Potassium 5.4 H (3.5-5.1) mmol/L Chloride 109 H (98-107) mmol/L Carbon Dioxide 20 L (22-30) mmol/L BUN 25 H (7-17) mg/dL Creatinine 1.67 H (0.52-1.04) mg/dL Glucose 137 H (74-99) mg/dL POC Glucose (mg/dL) 161 H 187 H (70-110) mg/dL Urine Protein (Negative) Ur Leukocyte Esterase (Negative) Urine Bacteria (None) /hpf Urine Mucus (None) /hpf Microbiology - Last 24 Hours (Table) 04/10/23 05:50 Blood Culture - Preliminary Blood 04/10/23 05:45 Blood Culture - Preliminary Blood Assessment and Plan Assessment: Symptomatic bradycardia, improved Accidental overdose, patient took one extra dose of her metoprolol and verapamil. Hypertension Severe hyperkalemia, being treated with Lokelct Acute on chronic kidney disease Severe metabolic anion gap acidosis, secondary to above Acute hypoxemic respiratory failure secondary to acute exacerbation of diastolic congestive heart failure. Recovered and on room air History of left foot gangrene status post left great toe amputation on April 02. Wound cultures were positive for resistant strands of strep agalactiae and staph epidermidis. Leukocytosis Normocytic normochromic anemia, no evidence of bleeding Mild transaminitis History of atrial fibrillation, anticoagulated on Xarelto Benign essential hypertension Diabetes mellitus type 2. Morbid obesity, BMI 43.1 kg/m Plan: The patient was seen and evaluated Labs and medications reviewed Still somewhat hypertensive Medications being adjusted Lokelma for hyperkalemia Nephrology is following Antibiotics per ID services Anticoagulated with Xarelto We will continue to follow This patient was seen independently by the nurse practitioner I have personally seen and examined the patient, performed the documentation and the assessment and plan as written. Number of minutes spent on the visit: 25.
[2023-04-14] MEDS ORDERED: INSULIN ASPART (NovoLOG) 100 UNIT/ML VIAL SQ SCH (12:30)
[2023-04-14] MEDS ORDERED: hydrALAZINE HCL 50 MG TAB PO SCH (13:00)
--- NOTE | 2023-04-14 13:03 | P.PN ---
Subjective Progress Note Date: 04/14/23 This is a Pleasant 72-year-old female patient who follows Dr. Kennedy the office was seen once in November 2021 following a hospitalization. She has a history of paroxysmal atrial fibrillation with rapid ventricular response, anticoagulated on Xarelto, retention, hyperlipidemia, diabetes, SVT, infected left great toe wound with recent amputation by Dr. Borden, chronic kidney disease. She presented to the hospital after accidentally taking extra morning medications including verapamil and metoprolol and she was feeling unwell. On admission crit and was up to 2.97, previously 1.26 on April 02. She was hyperkalemic. EKG showed junctional rhythm. Is being followed by nephrology. We were asked to see the patient in consultation because of an episode of symptomatic bradycardia that was brief yesterday. She remains on metoprolol tartrate 25 mg by mouth twice a day and verapamil 180 mg by mouth twice a day. Also recent labs show some improvement in renal function with a creatinine of 2.6. Blood pressure has been elevated and hydralazine spent increased by nephrology. Her diuretics remain on hold. On examination she is resting comfortably in bed. She has no complaints of chest discomfort, palpitations, orthopnea or PND. She denies current complaints of edema. She had brief episode of dizziness upon sitting yesterday but is otherwise had no complaints of dizziness, lightheadedness and has had no syncope. She is maintaining sinus mechanism on the monitor.. 04/14/2023 A was seen and examined sitting up in a chair at the bedside. She is feeling quite anxious and having a difficult time getting comfortable in the bed or the chair. She is quite anxious to go home. Labs today show improvement in her renal function with a crit and 1.67. There's been no significant bradycardia but her blood pressure remained elevated. Objective - Vital Signs Vital signs: Vital Signs Temp 97.7 F 04/14/23 11:28 Pulse 67 04/14/23 11:28 Resp 16 04/14/23 11:28 BP 188/66 04/14/23 11:28 Pulse Ox 96 04/14/23 11:28 FiO2 Intake & Output 04/13/23 04/14/23 04/14/23 19:59 06:59 18:59 Intake Total 1330 Output Total 400 Balance 930 Intake: Intake, IV Titration 650 Amount Cefepime 1 gm In Sodium 50 Chloride 0.9% 50 ml @ 12. 5 mls/hr IVPB Q12HR [facility] Rx#:[id number] Sodium Chloride 0.9% 1, 600 000 ml @ 75 mls/hr IV . [id number] [facility] Rx#:[id number] Oral 680 Output: Urine 400 Other: Voiding Method Toilet Bedside Commode # Voids 1 - Exam HEENT: Head is atraumatic, normocephalic. Pupils are equal, round. Sclerae anicteric. Conjunctivae are clear. Mucous membranes of the mouth are moist. Neck is supple. There is no elevated jugular venous pressure. No carotid bruit is heard. CHEST EXAMINATION: Clear to auscultation bilaterally. No wheezes rales or rhonchi. Respirations even and nonlabored. HEART EXAMINATION: Heart regular, positive S1 and S2. No S3. No S4. No clicks, rubs or murmurs. ABDOMEN: Soft, nontender. Bowel sounds are heard. No organomegaly noted. EXTREMITIES: 2+ peripheral pulses with no evidence of peripheral edema dressing dry and intact to the left foot and is post great toe amputation. NEUROLOGIC EXAMINATION: Patient is awake, alert and oriented x3. - Labs CBC & Chem 7: 04/11/23 07:23 04/14/23 07:52 Labs: Abnormal Lab Results - Last 24 Hours (Table) 04/13/23 04/13/23 04/13/23 Range/Units 16:38 17:37 20:11 Potassium (3.5-5.1) mmol/L Chloride (98-107) mmol/L Carbon Dioxide (22-30) mmol/L BUN (7-17) mg/dL Creatinine (0.52-1.04) mg/dL Glucose (74-99) mg/dL POC Glucose (mg/dL) 127 H 126 H (70-110) mg/dL Urine Protein 1+ H (Negative) Ur Leukocyte Esterase Trace H (Negative) Urine Bacteria Rare H (None) /hpf Urine Mucus Rare H (None) /hpf 04/14/23 04/14/23 04/14/23 Range/Units 06:12 07:52 11:50 Potassium 5.4 H (3.5-5.1) mmol/L Chloride 109 H (98-107) mmol/L Carbon Dioxide 20 L (22-30) mmol/L BUN 25 H (7-17) mg/dL Creatinine 1.67 H (0.52-1.04) mg/dL Glucose 137 H (74-99) mg/dL POC Glucose (mg/dL) 161 H 187 H (70-110) mg/dL Urine Protein (Negative) Ur Leukocyte Esterase (Negative) Urine Bacteria (None) /hpf Urine Mucus (None) /hpf Microbiology - Last 24 Hours (Table) 04/10/23 05:50 Blood Culture - Preliminary Blood 04/10/23 05:45 Blood Culture - Preliminary Blood Assessment and Plan Assessment: #1 bradycardia, improved #2 acute kidney injury on chronic kidney disease #3 hypertension, uncontrolled #4 history of paroxysmal atrial fibrillation, anticoagulated #5 history of AVNRT #6 diabetes #7 infected great toe wound, status post amputation Plan: From cardiology's perspective we will increase hydralazine. From our standpoint the patient is stable for discharge home she will follow-up as an outpatient for further blood pressure optimization. PORTFOLIO ACCOUNTANT note has been reviewed, I agree with a documented findings and plan of care. Patient was seen and examined.
--- NOTE | 2023-04-14 13:28 | P.PN ---
Subjective Progress Note Date: 04/13/23 Principal diagnosis: Left big toe amputation site wound dehiscence and cellulitis Patient is a 72-year-old female with a past medical history significant for diabetes mellitus hypertension atrial fibrillation heart failure patient recently did have a left big toe amputation done on 04/02/[address] Chapman and the patient was subsequently discharged home cultures obtained at the time of surgery did grew staph epi and Streptococcus agalactiae, patient presented to hospital with overdosing on her blood pressure medication with hypertension and was noticed at the bases of the left big toe amputation site wound On today's evaluation that is 04/13/2023, the patient continues to be afebrile, the patient is breathing comfortably on room air and denies any chest pain or cough, patient denies nausea/vomiting or diarrhea and no abdominal pain, did have occasional pain to the left big toe amputation site Creatinine is 1.91, no CBC was done today, cultures normal skin espinoza Objective - Vital Signs Vital signs: Vital Signs Temp 97.7 F 04/12/23 20:00 Pulse 69 04/13/23 04:00 Resp 18 04/13/23 04:00 BP 182/80 04/13/23 04:00 Pulse Ox 92 L 04/13/23 04:00 FiO2 Intake & Output 04/12/23 04/13/23 04/13/23 18:59 06:59 18:59 Intake Total 240 Output Total 225 600 325 Balance -225 -600 -85 Intake: Oral 240 Output: Urine 225 600 325 Other: Voiding Method Bedside Commode Bedside Commode # Voids 1 1 - Exam GENERAL DESCRIPTION: An elderly female lying in bed in no distress RESPIRATORY SYSTEM: Unlabored breathing , clear to auscultation anteriorly HEART: S1 S2 regular rate and rhythm , ABDOMEN: Soft , no tenderness EXTREMITIES: Left big toe wound is stressed - Labs CBC & Chem 7: 04/11/23 07:23 04/14/23 07:52 Labs: Abnormal Lab Results - Last 24 Hours (Table) 04/12/23 04/12/23 Range/Units 11:27 20:13 POC Glucose (mg/dL) 139 H 197 H (70-110) mg/dL Microbiology - Last 24 Hours (Table) 04/10/23 05:50 Blood Culture - Preliminary Blood 04/10/23 05:45 Blood Culture - Preliminary Blood 04/10/23 12:00 Gram Stain - Final Toe - Left First Wound Culture - Final Assessment and Plan (1) Amputation of left great toe Current Visit: Yes Status: Acute Code(s): S98.112A - COMPLETE TRAUMATIC AMPUTATION OF LEFT GREAT TOE, INIT ENCNTR SNOMED Code(s): 318177443 (2) Non-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 Current Visit: Yes Status: Acute Code(s): L97.524 - NON-PRS CHRONIC ULCER OTH PRT LEFT FOOT W NECROSIS OF BONE SNOMED Code(s): 77880222665661066 (3) Cellulitis of left foot Current Visit: Yes Status: Acute Code(s): L03.116 - CELLULITIS OF LEFT LOWER LIMB SNOMED Code(s): 72504492758293650 Plan: 1patient with a left diabetic foot infection in this patient with recent left big toe amputation now with evidence of wound dehiscence and some cellulitis we will need to cover for the polymicrobial espinoza usually associated with this infection with a recent culture positive for streptococci collected and staph epi 2--deep local culture has been obtained both aerobic and anaerobic currently growing normal skin espinoza 3--patient to continue with cefepime and Flagyl, will be given a short course of oral Keflex and Flagyl on the basis of previous culture Dictation was produced using [employer] dictation software. please excuse any grammatical, word or spelling errors. Time with Patient: Less than 30
--- NOTE | 2023-04-14 13:29 | P.PN ---
Subjective Progress Note Date: 04/14/23 Principal diagnosis: Left big toe amputation site wound dehiscence and cellulitis Patient is a 72-year-old female with a past medical history significant for diabetes mellitus hypertension atrial fibrillation heart failure patient recently did have a left big toe amputation done on 04/02/[address] Chapman and the patient was subsequently discharged home cultures obtained at the time of surgery did grew staph epi and Streptococcus agalactiae, patient presented to hospital with overdosing on her blood pressure medication with hypertension and was noticed at the bases of the left big toe amputation site wound On today's evaluation that is 04/14/2023, the patient denies any fever or any chills, the patient is breathing comfortably on room air and no need for sup plemental oxygen, the patient denies any chest pain and no cough or sputum production, patient denies Abdominal pain and no nausea/vomiting or diarrhea , denies pain to the left big toe amputation site Creatinine is 1.67, no CBC was done today, cultures normal skin espinoza Objective - Vital Signs Vital signs: Vital Signs Temp 97.7 F 04/14/23 11:28 Pulse 67 04/14/23 11:28 Resp 16 04/14/23 11:28 BP 188/66 04/14/23 11:28 Pulse Ox 96 04/14/23 11:28 FiO2 Intake & Output 04/13/23 04/14/23 04/14/23 19:59 06:59 18:59 Intake Total 1330 Output Total 400 Balance 930 Intake: Intake, IV Titration 650 Amount Cefepime 1 gm In Sodium 50 Chloride 0.9% 50 ml @ 12. 5 mls/hr IVPB Q12HR ANTHONY Rx#:[id number] Sodium Chloride 0.9% 1, 600 000 ml @ 75 mls/hr IV . [id number] ANTHONY Rx#:[id number] Oral 680 Output: Urine 400 Other: Voiding Method Toilet Bedside Commode # Voids 1 - Exam GENERAL DESCRIPTION: An elderly female lying in bed in no distress RESPIRATORY SYSTEM: Unlabored breathing , clear to auscultation anteriorly HEART: S1 S2 regular rate and rhythm , ABDOMEN: Soft , no tenderness EXTREMITIES: Left big toe wound is stressed - Labs CBC & Chem 7: 04/11/23 07:23 04/14/23 07:52 Labs: Abnormal Lab Results - Last 24 Hours (Table) 04/13/23 04/13/23 04/13/23 Range/Units 16:38 17:37 20:11 Potassium (3.5-5.1) mmol/L Chloride (98-107) mmol/L Carbon Dioxide (22-30) mmol/L BUN (7-17) mg/dL Creatinine (0.52-1.04) mg/dL Glucose (74-99) mg/dL POC Glucose (mg/dL) 127 H 126 H (70-110) mg/dL Urine Protein 1+ H (Negative) Ur Leukocyte Esterase Trace H (Negative) Urine Bacteria Rare H (None) /hpf Urine Mucus Rare H (None) /hpf 04/14/23 04/14/23 04/14/23 Range/Units 06:12 07:52 11:50 Potassium 5.4 H (3.5-5.1) mmol/L Chloride 109 H (98-107) mmol/L Carbon Dioxide 20 L (22-30) mmol/L BUN 25 H (7-17) mg/dL Creatinine 1.67 H (0.52-1.04) mg/dL Glucose 137 H (74-99) mg/dL POC Glucose (mg/dL) 161 H 187 H (70-110) mg/dL Urine Protein (Negative) Ur Leukocyte Esterase (Negative) Urine Bacteria (None) /hpf Urine Mucus (None) /hpf Microbiology - Last 24 Hours (Table) 04/10/23 05:50 Blood Culture - Preliminary Blood 04/10/23 05:45 Blood Culture - Preliminary Blood Assessment and Plan (1) Amputation of left great toe Current Visit: Yes Status: Acute Code(s): S98.112A - COMPLETE TRAUMATIC AMPUTATION OF LEFT GREAT TOE, INIT ENCNTR SNOMED Code(s): 799022570 (2) Non-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 Current Visit: Yes Status: Acute Code(s): L97.524 - NON-PRS CHRONIC ULCER OTH PRT LEFT FOOT W NECROSIS OF BONE SNOMED Code(s): 23425937945738553 (3) Cellulitis of left foot Current Visit: Yes Status: Acute Code(s): L03.116 - CELLULITIS OF LEFT LOWER LIMB SNOMED Code(s): 85086920798376631 Plan: 1patient with a left diabetic foot infection in this patient with recent left big toe amputation now with evidence of wound dehiscence and some cellulitis we will need to cover for the polymicrobial espinoza usually associated with this infection with a recent culture positive for streptococci collected and staph epi 2--deep local culture has been obtained both aerobic and anaerobic currently growing normal skin espinoza 3--patient to continue with cefepime and Flagyl, discontinue daptomycin, will be given a short course of oral Keflex and Flagyl on the basis of previous culture on discharge prescription already sent Dictation was produced using [email or web address] dictation software. please excuse any grammatical, word or spelling errors. Time with Patient: Less than 30
[2023-04-14 13:38] VITALS: RESP 14
[2023-04-14 15:44] VITALS: BP 162/65; PULSE 77; TEMP 97.6
[2023-04-15] MEDS ORDERED: SODIUM ZIRCONIUM CYCLOSILICATE 10 GM PACKET PO SCH (09:00)
== END 2023-04-14 17:32 | disposition home health service (06) | DRG 917 ==
LOC: EC 19:33 → 3SCARD 21:08 → 2SICU 23:59 → 3SCARD 04-10 14:17
PROVIDERS: ADMIT Family Medicine; ATTEND Family Medicine
DX: T46.1X1A Poisoning by calcium-channel blockers, accidental (unintentional), initial encounter (principal); I50.33 Acute on chronic diastolic (congestive) heart failure; N17.0 Acute kidney failure with tubular necrosis; J96.01 Acute respiratory failure with hypoxia; Z68.41 Body mass index [BMI] 40.0-44.9, adult; I13.0 Hypertensive heart and chronic kidney disease with heart failure and stage 1 through stage 4 chronic kidney disease, or unspecified chronic kidney disease; E87.20 Acidosis, unspecified; L03.116 Cellulitis of left lower limb; M86.8X7 Other osteomyelitis, ankle and foot; T36.91XA Poisoning by unspecified systemic antibiotic, accidental (unintentional), initial encounter; T44.7X1A Poisoning by beta-adrenoreceptor antagonists, accidental (unintentional), initial encounter; R00.1 Bradycardia, unspecified; E66.01 Morbid (severe) obesity due to excess calories; N18.32 Chronic kidney disease, stage 3b; E87.5 Hyperkalemia; D72.829 Elevated white blood cell count, unspecified; E11.621 Type 2 diabetes mellitus with foot ulcer; L97.524 Non-pressure chronic ulcer of other part of left foot with necrosis of bone; E11.69 Type 2 diabetes mellitus with other specified complication; T87.81 Dehiscence of amputation stump; I48.0 Paroxysmal atrial fibrillation; E11.22 Type 2 diabetes mellitus with diabetic chronic kidney disease; J44.9 Chronic obstructive pulmonary disease, unspecified; Z79.4 Long term (current) use of insulin; Z89.412 Acquired absence of left great toe; D63.1 Anemia in chronic kidney disease; R74.01 Elevation of levels of liver transaminase levels; I95.9 Hypotension, unspecified; M17.0 Bilateral primary osteoarthritis of knee; Z28.310 Unvaccinated for COVID-19; I95.2 Hypotension due to drugs; E78.5 Hyperlipidemia, unspecified; Z87.891 Personal history of nicotine dependence; Z86.16 Personal history of COVID-19; Z79.899 Other long term (current) drug therapy; Z79.01 Long term (current) use of anticoagulants; Z88.0 Allergy status to penicillin; Z88.5 Allergy status to narcotic agent
CPT/HCPCS: 36415; 71045; 71046; 80048; 80053; 81001; 82803; 83036; 83735; 85025; 87040; 87070; 87075; 87205; 93005; 94640; 94760; 96361; 96374; 96375; 99285

== ENCOUNTER 2023-05-10 11:45 | Observation (INO) | payer MEDICARE ==
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
[2023-05-10 13:12] LABS: Anisocytosis Slight; Basophils % (A) 0 %; Eosinophils # (A) 0.1 k/uL (0-0.7); Eosinophils % (A) 1 %; HCT 37.5 % (34.0-46.0); HGB 11.7 gm/dL (11.4-16.0); Hypochromasia Moderate; Lymphocytes # (A) 1.2 k/uL (1.0-4.8); Lymphocytes % (A) 8 %; MCH 26.1 pg (25.0-35.0); MCHC 31.1 g/dL (31.0-37.0); Mean Platelet Volume 10.2; Monocytes # (A) 0.6 k/uL (0-1.0); Monocytes % (A) 4 %; Neutrophils # (A) 14.3 k/uL (1.3-7.7); Neutrophils % (A) 87 %; Platelet Count 272 k/uL (150-450); RBC 4.47 m/uL (3.80-5.40); RDW 17.8 % (11.5-15.5); WBC 16.3 k/uL (3.8-10.6)
--- NOTE | 2023-05-10 13:44 | XR ---
EXAMINATION TYPE: XR chest 2V DATE OF EXAM: 05/10/2023 COMPARISON: 04/09/2023. HISTORY: Weakness and shortness of breath. TECHNIQUE: Frontal and lateral views of the chest are obtained. IMPRESSION: The cardiac silhouette is moderately significantly enlarged and there is mild diffuse pulmonary edema . Patchy opacity in the suprahilar region may represent a superimposed pneumonia. Question left pleu ral effusion and/or diffuse airspace disease in the lung base. Evaluation is limited due to body habi tus.
--- NOTE | 2023-05-10 13:47 | XR ---
2 views left foot. DATE: 05/10/2023. COMPARISON: None available. CLINICAL HISTORY: Black toes on left foot. IMPRESSION: There is been prior amputation of the first toe from the level of the mid first metatarsal. There is some mild soft tissue swelling seen within this region. There is no subcutaneous air. If there is con cern for osteomyelitis an MRI would be the study of choice. No acute fractures are otherwise seen. There is extensive vascular calcification seen throughout the foot. Scattered degenerative changes are otherwise noted within the tarsal bones.
[2023-05-10 13:52] LABS: INR 1.3 (<1.2); Partial Thromboplastin Time 32.1 sec (22.0-30.0); Prothrombin Time 13.6 sec (10.0-12.5)
[2023-05-10] MEDS ORDERED: ACETAMINOPHEN TAB 325 MG TAB PO STA (14:31)
[2023-05-10 16:05] LABS: ALT 21 U/L (4-34); AST 24 U/L (14-36); African American GFR (CKD) 36 (>60 ml/min/1.73 sqM); Albumin 3.6 g/dL (3.5-5.0); Alkaline Phosphatase 78 U/L (38-126); Anion Gap 10 mmol/L; Blood Urea Nitrogen 81 mg/dL (7-17); Calcium 7.8 mg/dL (8.4-10.2); Carbon Dioxide 25 mmol/L (22-30); Chloride 101 mmol/L (98-107); Glucose 87 mg/dL (74-99); Magnesium 2.4 mg/dL (1.6-2.3); Non-African American GFR(CKD) 31 (>60 ml/min/1.73 sqM); Phosphorus 4.7 mg/dL (2.5-4.5); Potassium 4.7 mmol/L (3.5-5.1); Sodium 136 mmol/L (137-145); Total Bilirubin 0.8 mg/dL (0.2-1.3); Total Protein 6.7 g/dL (6.3-8.2)
[2023-05-10] MEDS ORDERED: NALOXONE 0.4 MG/ML 1 ML VIAL IV PRN (16:38)
[2023-05-10] MEDS ORDERED: ACETAMINOPHEN TAB 325 MG TAB PO PRN (16:38)
[2023-05-10] MEDS ORDERED: VANCOMYCIN IV PER PHARMACY 1 EACH MISC MISCELLANE PRN (16:51)
[2023-05-10] MEDS ORDERED: CEFEPIME 2 GM in SODIUM CHLORIDE 0.9% 100 ML IVPB STA (16:52)
[2023-05-10] MEDS ORDERED: VANCOMYCIN 2,000 MG in SODIUM CHLORIDE 0.9% 500 ML 500 ML IVPB STA (17:05)
[2023-05-10] MEDS ORDERED: traMADol-ACETAMINOP 37.5-325MG 1 EACH TAB PO PRN (17:33)
[2023-05-10 20:57] LABS: Glucose,Whole Blood 72 mg/dL (70-110)
[2023-05-10 21:22] LABS: Glucose,Whole Blood 70 mg/dL (70-110)
[2023-05-10 22:11] LABS: Glucose,Whole Blood 107 mg/dL (70-110)
[2023-05-10] MEDS ORDERED: propofoL 100 ML IV ONE (22:13)
[2023-05-10] MEDS ORDERED: Phosphorus Replacement Protoco 1 EACH MISC MISCELLANE PRN (22:42)
[2023-05-10] MEDS ORDERED: Potassium Replacement Protocol 1 EACH MISC MISCELLANE PRN (22:42)
[2023-05-10] MEDS ORDERED: Magnesium Replacement Protocol 1 EACH MISC MISCELLANE PRN (22:42)
[2023-05-10] MEDS ORDERED: NOREPINEPHRINE 4 MG in SODIUM CHLORIDE 0.9% 250 ML IV SCH (22:45)
[2023-05-10 23:06] LABS: ABG HCO3 16 mmol/L (21-25); ABG Oxygen Saturation 96.5 % (94-97); ABG PCO2 40 mmHg (35-45); ABG PH 7.21 (7.35-7.45); ABG PO2 105 mmHg (83-108); ABG TCO2 17 mmol/L (19-24)
[2023-05-10 23:08] LABS: Allen Test Performed? No
--- NOTE | 2023-05-10 23:38 | XR ---
EXAM: XR Chest, 1 View CLINICAL HISTORY: ITS.REASON XR Reason: tube placement TECHNIQUE: Frontal view of the chest. COMPARISON: No relevant prior studies available. FINDINGS: Lungs: Unremarkable. No consolidation. Pleural space: Small LEFT pleural effusion. No pneumothorax. Heart: Cardiomegaly. Mediastinum: Unremarkable. Normal mediastinal contour. Bones/joints: Unremarkable. No acute fracture. Vasculature: Calcified aorta. Tubes, lines and devices: Endotracheal tube terminates 1.5 cm above the carlos. Feeding tube terminates in the stomach. IMPRESSION: 1. Endotracheal tube terminates 1.5 cm above the carlos. 2. Feeding tube terminates in the stomach. 3. Small LEFT pleural effusion.
[2023-05-10 23:39] LABS: Anisocytosis Slight; Basophils # (A) 0.1 k/uL (0-0.2); Basophils % (A) 0 %; Eosinophils # (A) 0.1 k/uL (0-0.7); Eosinophils % (A) 0 %; HCT 37.4 % (34.0-46.0); HGB 11.6 gm/dL (11.4-16.0); Hypochromasia Marked; Lymphocytes # (A) 3.4 k/uL (1.0-4.8); Lymphocytes % (A) 16 %; MCH 26.9 pg (25.0-35.0); MCV 86.9 fL (80.0-100.0); Mean Platelet Volume 10.7; Monocytes # (A) 0.5 k/uL (0-1.0); Monocytes % (A) 2 %; Neutrophils % (A) 81 %; RBC 4.31 m/uL (3.80-5.40); RDW 17.9 % (11.5-15.5); WBC 22.1 k/uL (3.8-10.6)
[2023-05-10 23:48] LABS: African American GFR (CKD) 24 (>60 ml/min/1.73 sqM); Anion Gap 19 mmol/L; Blood Urea Nitrogen 76 mg/dL (7-17); Calcium 7.1 mg/dL (8.4-10.2); Carbon Dioxide 14 mmol/L (22-30); Chloride 104 mmol/L (98-107); Magnesium 2.3 mg/dL (1.6-2.3); Non-African American GFR(CKD) 21 (>60 ml/min/1.73 sqM); Potassium 5.5 mmol/L (3.5-5.1); Sodium 137 mmol/L (137-145)
[2023-05-10 23:50] LABS: Glucose 49 mg/dL (74-99)
[2023-05-11] MEDS ORDERED: CEFEPIME 2 GM in SODIUM CHLORIDE 0.9% 100 ML IVPB SCH ×2
[2023-05-11 00:47] VITALS: BP 20/17; PULSE 0; RESP 20; TEMP 96.5
[2023-05-11 02:51] LABS: Large Platelets Present
[2023-05-11 02:52] LABS: Platelet Count 265 k/uL (150-450)
[2023-05-11] MEDS ORDERED: CEFEPIME 1 GM in SODIUM CHLORIDE 0.9% 50 ML IVPB SCH (06:00)
--- NOTE | 2023-05-11 06:40 | P.EN ---
Code blue activated for PEA arrest CPR initiated , followed ACLS protocol , ROSC achieved briefly initially , patient then went into SVT/afib at 190s was unstable with SOB, hypotension, synchronized cardioversion delivered with escalating energy, then patient went into Vfib , CPR resumed, paitent was cardioverted, then continued into asystole , and PEA arrest for a prolonged code during which she was intubated and given multiple doses of epi and bicarb given please refer to paper chart for exact sequence of events and meds given ROSC was then achieved. patient loaded with amiodarone and started on adrip, she was also started on levophed due to hypotension. discussed with family , answered their questions. patient was made DNR patient moved to the ICU
[2023-05-11] MEDS ORDERED: CHLORHEXIDINE GLUCONATE 15 ML CUP MUCOUS MEM SCH (09:00)
[2023-05-11] MEDS ORDERED: metroNIDAZOLE-NS PMX 500 MG in SALINE 1 100ML.BAG IVPB SCH (21:59)
== END 2023-05-11 03:16 | disposition expired ==
LOC: EC 11:45 → 4SSUR 16:20 → 2SICU 22:05
PROVIDERS: ADMIT Family Medicine; ATTEND Family Medicine
DX: I46.9 Cardiac arrest, cause unspecified (principal); I95.9 Hypotension, unspecified; L03.119 Cellulitis of unspecified part of limb; L02.619 Cutaneous abscess of unspecified foot; I96 Gangrene, not elsewhere classified; R53.1 Weakness; E11.40 Type 2 diabetes mellitus with diabetic neuropathy, unspecified; I48.91 Unspecified atrial fibrillation; I11.0 Hypertensive heart disease with heart failure; I50.9 Heart failure, unspecified; Z20.822 Contact with and (suspected) exposure to COVID-19; Z86.16 Personal history of COVID-19; Z89.412 Acquired absence of left great toe; Z79.01 Long term (current) use of anticoagulants; Z79.4 Long term (current) use of insulin; Z79.85 Long-term (current) use of injectable non-insulin antidiabetic drugs; Z79.899 Other long term (current) drug therapy; Z88.0 Allergy status to penicillin; Z88.2 Allergy status to sulfonamides; Z88.5 Allergy status to narcotic agent; Z66 Do not resuscitate
CPT/HCPCS: 96366 ×2; 96368; 96365; 99285; 36415; 36600; 94002; 93005; 80053; 80048; 82805; 83605; 83735; 84100; 84443; 84484; 85025; 85610; 85730; 87040; 87636; 73620; 71045; 71046; G0378 ×3; J3370; J0692; J2704